=== PATIENT | male | born 1960 | race Caucasian/White ===

== ENCOUNTER 2019-02-13 06:09 | Emergency (ER) | payer BC, SELFPAY ==
[2019-02-13] VITALS (16 sets, daily range): BP systolic 168–192; BP diastolic 105–121; PULSE 71–84; RESP 15–20; TEMP 37.2; O2SAT 92–97; BMI 39.3
--- NOTE | 2019-02-13 06:39 | USR_ITS ---
PROCEDURE INFORMATION: Exam: US Abdomen Complete Exam date and time: 02/13/2019 8:08 AM Age: 58 years old Clinical indication: Abdominal pain; Generalized; Additional info: Epigastric pain TECHNIQUE: Imaging protocol: Real-time ultrasound of the abdomen with image documentation. COMPARISON: No relevant prior studies available. FINDINGS: Liver: echogenic liver likely related to fatty infiltration. Liver 17 cm Gallbladder: gallbladder normal. No pericholecystic fluid or gallbladder wall thickening. The gallbladder is unremarkable. No gallstones. No pericholecystic fluid or gallbladder wall thickening. Common bile duct: Common bile duct normal. Common bile duct 5-6 mm. Pancreas: Visualized portions of the pancreas normal. Right kidney: Right kidney is normal. 7 mm calcification mid pole right kidney. Right kidney 12.1 cm. Left kidney: Left kidney 12.3 cm Spleen: Spleen 9 cm Aorta: Visualized portions of the aorta non-aneurysmal and visualized portions of the inferior vena cava is unremarkable. Inferior vena cava: Normal. US/US abdomen complete* [id number] IMPRESSION: Echogenic liver likely related to fatty infiltration.
--- NOTE | 2019-02-13 06:54 | PC.NURSE ---
Placed patient on the pairer substandard, pulse ox and blood pressure
[2019-02-13 07:01] LABS: Glucose Point of Care 132 mg/dL (70-110)
[2019-02-13 07:12] LABS: Basophils # 0.1 10^3/uL (0.0-0.1); Basophils % 0.4 %; Eosinophils # 0.2 10^3/uL (0.0-0.8); Eosinophils % 1.9 %; Hematocrit 44.6 % (42.0-52.0); Hemoglobin 15.1 g/dL (11.7-16.6); Lymphocytes # 1.4 10^3/uL (0.8-4.8); Lymphocytes % 10.6 %; Mean Corpuscular HGB Conc 33.9 g/dL (30.0-36.0); Mean Corpuscular Hemoglobin 31.1 pg (28.0-34.0); Mean Platelet Volume 8.7 fL (7.4-10.4); Monocytes % 7.9 %; Nucleated Red Blood Cells % 0 %; Platelet Count 282 10^3/cmm (130-400); Red Blood Count 4.85 10^6/uL (4.1-5.3); Red Cell Distribution Width 12.9 % (12.1-15.1); White Blood Count 12.7 10^3/uL (4.0-10.0)
[2019-02-13] MEDS: morphine 4 mg/mL SDV 1 mL IVP ×2 (07:13→07:57)
[2019-02-13] MEDS: ondansetron 2 mg/ML SDV 2 mL 4 MG IVP (07:14)
[2019-02-13] MEDS: sodium chloride 0.9% 500 ML IV (07:14)
[2019-02-13 07:29] LABS: Alanine Aminotransferase 18 U/L (0-41); Albumin Level 5.3 g/dL (3.5-5.2); Alkaline Phosphatase 79 IU/L (40-130); Aspartate Amino Transferase 15 U/L (0-40); Blood Urea Nitrogen 11 mg/dL (6-20); Carbon Dioxide 23 mmol/L (22-29); Chloride 100 mmol/L (98-107); Globulin 2.1 g/dL (1.3-4.6); Glomerular Filtration Rate 115.4 mL/min (90-130); Glucose 139 mg/dL (74-109); Lipase 26 U/L (13-60); Sodium 137 mmol/L (136-145); Total Bilirubin 0.6 mg/dL (0.15-1.2); Total Protein 7.4 g/dL (6.6-8.7)
[2019-02-13 07:31] LABS: Troponin(5th) Baseline 9 ng/mL (0-15)
--- NOTE | 2019-02-13 07:41 | ED_ITS ---
HPI - Abdominal Pain General: Chief Complaint: Abdominal Pain Stated Complaint: back pain and abd pain Time Seen by Provider: 02/13/19 06:33 Source: patient and family History of Present Illness: HPI narrative: Mr. Capone is a very nice 58-year-old male who comes in complaining of epigastric pain. The epigastric pain has been intermittent but he has had constant back pain. He describes the pain is burning in nature. He denies any nausea/vomiting, fever/chills or diarrhea or constipation. He denies any blood in his stools or black tarry stools. He denies having anything similar in the past. He is not had any known ill conta cts. Patient is unaware of anything that makes his symptoms better or worse. Associated Symptoms: Denies chills, coffee ground emesis, constipation, GI cramping, diarrhea, dysuria, fever(s), hematochezia, hematuria, hematemesis, melena, nausea, syncope and vomiting Review of Systems General: Reports: other (negative unless marked) Const: Denies: fever, chills, body aches, fatigue, malaise or diaphoresis Eyes: Denies: change in vision or blurry vision ENMT: Denies: throat pain, painful swallowing, hoarseness, ear pain, ear discharge, Change in hearing or nasal discharge Card: Denies: chest pain, palpitations, irregular heart rhythm, syncope, pre- syncope, shortness of breath on exertion or shortness of breath when lying down Resp: Denies: shortness of breath, productive cough, non-productive cough, wheezing, coughing up blood or chest congestion GI: Reports: abdominal pain; Denies: nausea, vomiting, vomiting blood, coffee grounds in vomit, diarrhea, constipation, cramping, blood in stool or black tarry stool : Denies: flank pain, difficulty urinating, painful urination, urinary frequency, urinary urgency, decreased urine ouput, urinary incontinence or blood in urine Musc: Denies: neck pain, back pain, extremity pain, extremity swelling, joint pain, joint swelling, joint warmth or joint stiffness Skin/Breast: Denies: rash, skin tenderness or yellow skin Neuro: Denies: headache, numbness in extremities, weakness in extremities, changes in sensation, lack of coordination, difficulty walking, dizziness, vertigo or confusion Endo: Denies: excessive thirst, tired all the time, cold intolerance, excessive sweating, flushing or hot flashes Jamie/Lymph: Denies: easy bruising, easy bleeding, petechiae or enlarged lymph nodes All/Imm: Denies: hives, throat swelling, tongue swelling, facial swelling or acute wheezing PFSH ED PFSH: Statuses (acute, chronic, etc) shown below reflect problem list status as previously entered and may not be historically accurate Medical History (Updated 02/13/19 @ 11:07 by Yue Munoz) Diverticulosis (Acute) GERD (gastroesophageal reflux disease) (Acute) Hypertension (Acute) Osteoarthritis (Acute) Surgical History History of colon surgery (Acute) Family History (Updated 02/13/19 @ 07:45 by Yue Munoz) Other CAD (coronary artery disease) Crohn's disease Hypertension Social History Smoking and tobacco status: never smoked Physical Exam Const: COMMON NORMALS: no apparent distress, oriented x3, no limitations, healthy appearing and well nourished EXAM LIMITATIONS: no altered mental status GENERAL APPEARANCE: cooperative, well kempt and well developed ORIENTATION/CONSCIOUSNESS: Yes awake HENMT: COMMON NORMALS: normocephalic, head/scalp atraumatic, hearing grossly normal bilaterally, external ears normal, EAC's normal, external nose normal and moist oral mucous membranes HEAD & SCALP: normal to inspection, normocephalic and atraumatic FACE & SINUS: normal facial exam and face symmetric NOSE: external nose normal and nares normal EXTERNAL EAR: Yes external ears normal EXTERNAL AUDITORY CANAL: EAC's normal MOUTH: oral and palatal mucosa normal and tongue normal Eye: COMMON NORMALS: PERRL, EOMs intact bilaterally, conjunctivae normal and no scleral icterus GENERAL EYE: normal appearance of both eyes and normal light reflex CONJUNCTIVA: Yes conjunctivae normal SCLERA: sclerae normal CORNEA: Yes corneas normal PUPIL: Yes PERRL DIRECT OPHTHALMOSCOPY: Yes normal light reflex Neck/C-Spine: COMMON NORMALS: full ROM, no lymphadenopathy, supple, no meningeal signs and no JVD GENERAL: Yes normal visual inspection and Yes trachea midline CERVICAL SPINE: Yes cervical ROM normal Chest: COMMONS NORMALS: inspection of chest normal and palpation of chest normal Resp: COMMON NORMALS: normal respiratory effort, no retractions, no use of accessory muscles and clear to auscultation bilaterally EFFORT & INSPECTION: Yes able to speak in complete sentences AUSCULTATION: clear to auscultation bilaterally Cardio: COMMON NORMALS: no JVD, regular rate, regular rhythm, S1 normal heart sound, S2 normal heart sound, no gallops, no clicks, no murmurs and no rub JUGULAR VENOUS DISTENTION: no JVD RATE: regular rate RHYTHM: regular rhythm HEART SOUNDS: S1 normal and S2 normal GI: COMMON NORMALS: soft to palpation, non-tender, no hepatosplenomegaly and no masses INSPECTION: Yes normal to inspection PALPATION: Yes soft, No tender and Yes no hepatosplenomegaly : COMMON NORMALS: Yes no CVA tenderness BLADDER/KIDNEY EXAM: Yes no CVA tenderness Back/Pelvis: COMMON NORMALS: no CVA tenderness, thoracic and lumbar spine normal to inspection, no thoracic nor lumbar tenderness and thoraco-lumbar ROM normal Extremity: COMMON NORMALS: normal to inspection, full ROM, normal capillary refill, no joint enlargement, no clubbing, cyanosis or edema and no calf tenderness Neuro: COMMON NORMALS: oriented x3, CN's II-XII intact bilaterally, moves all extremities, no focal motor deficits and no sensory deficits noted MENINGEAL SIGNS: Yes no meningeal signs Psych: COMMON NORMALS: mental status grossly normal, thought process normal, cooperative, affect normal, speech normal and activity/motor behavior normal APPEARANCE: Yes well kempt SPEECH: Yes normal speech THOUGHT PROCESS: normal thought process Skin: COMMON NORMALS: no rashes or lesions noted, skin turgor normal, no jaundice, no petechiae and no mottling GENERAL SKIN EXAM: no rashes or lesions noted and turgor normal Course Vital Signs: Vital signs: Vital Signs Temperature 99.0 F 02/13/19 06:12 Pulse Rate 75 02/13/19 10:30 Respiratory Rate 16 02/13/19 10:30 Blood Pressure 170/109 02/13/19 10:30 Pulse Oximetry 96 02/13/19 10:30 MDM - Abdominal Pain MDM Narrative: Medical decision making narrative: The patient is feeling better but his blood pressure is still elevated. He denies any chest pain or shortness of breath. His lipase is normal but he has findings concerning for early pancreatitis. Ending around his duodenum which I believe is likely caused by him taking NSAIDs including meloxicam for his pain. I have recommended the patient come into the hospital on IV Protonix and possibly have an EGD but he refuses. He states he has to go take care of something with his truck. He is feeling better and wants to go home. I have advised him to follow a clear liquid diet, take the pain medicine and nausea medicine as I have prescribed and avoid all NSAIDs and aspirin. By the sounds of the conversation between he and his she is going to have him come back here immediately he wants his truck is unloaded but I still advised him to follow-up with his primary care doctor and Dr. Javier as an outpatient if he chooses not to do this. The patient does understand he is leaving AGAINST MEDICAL ADVICE and understands the risks by doing so. Lab Data: Labs: Lab Results 02/13/19 02/13/19 02/13/19 Range/Units 06:56 06:56 06:56 WBC 12.7 H (4.0-10.0) 10^3/ uL RBC 4.85 (4.1-5.3) 10^6/u L Hgb 15.1 (11.7-16.6) g/dL Hct 44.6 (42.0-52.0) % MCV 92.0 (80-94) fL MCH 31.1 (28.0-34.0) pg MCHC 33.9 (30.0-36.0) g/dL RDW 12.9 (12.1-15.1) % Plt Count 282 (130-400) 10^3/c mm MPV 8.7 (7.4-10.4) fL Neut % (Auto) 79.0 % Lymph % (Auto) 10.6 % [place] % (Auto) 7.9 % Eos % (Auto) 1.9 % Baso % (Auto) 0.4 % Neut # (Auto) 10.0 H (1.8-7.7) 10^3/u L Lymph # (Auto) 1.4 (0.8-4.8) 10^3/u L [place] # (Auto) 1.0 H (0.2-0.9) 10^3/u L Eos # (Auto) 0.2 (0.0-0.8) 10^3/u L Baso # (Auto) 0.1 (0.0-0.1) 10^3/u L Nucleated RBC % (a uto) 0 % Nucleated RBCs # 0.0 /100WBC Sodium 137 (136-145) mmol/L Potassium 4.0 (3.5-5.1) mmol/L Chloride 100 (98-107) mmol/L Carbon Dioxide 23 (22-29) mmol/L Anion Gap 18.0 (5-19) BUN 11 (6-20) mg/dL Creatinine 0.7 (0.7-1.2) mg/dL GFR Calculation 115.4 (90-130) mL/min Glucose 139 H (74-109) mg/dL POC Glucose (70-110) mg/dL Calcium 10.0 (8.6-10.0) mg/Dl Magnesium 2.0 (1.7-2.3) mg/dL Total Bilirubin 0.6 (0.15-1.2) mg/dL AST 15 (0-40) U/L ALT 18 (0-41) U/L Alkaline Phosphata se 79 (40-130) IU/L Troponin T Baselin e 9 (0-15) ng/mL Troponin T 120 Min swapnil (0-15) ng/mL Delta Troponin T (0-10) ABS# Total Protein 7.4 (6.6-8.7) g/dL Albumin 5.3 H (3.5-5.2) g/dL Globulin 2.1 (1.3-4.6) g/dL Lipase 26 (13-60) U/L Urine Color (Yellow) Urine Appearance (CLEAR) Urine pH (5-7) Ur Specific Gravit y (1.005-1.030) Urine Protein (Negative) Urine Glucose (UA) (Normal) Urine Ketones (Negative) Urine Occult Blood (Negative) Urine Nitrate (Negative) Urine Bilirubin (NEGATIVE) Urine Urobilinogen (Negative) mg/dL Ur Leukocyte Ava ase (Negative) Urine RBC (0-2) /hpf Urine WBC (0-5) /hpf Ur Squamous Epith Cells (0-5) Urine Bacteria (NONE) Hyaline Casts Urine Mucus 02/13/19 02/13/19 02/13/19 Range/Units 06:57 07:36 09:00 WBC (4.0-10.0) 10^3/ uL RBC (4.1-5.3) 10^6/u L Hgb (11.7-16.6) g/dL Hct (42.0-52.0) % MCV (80-94) fL MCH (28.0-34.0) pg MCHC (30.0-36.0) g/dL RDW (12.1-15.1) % Plt Count (130-400) 10^3/c mm MPV (7.4-10.4) fL Neut % (Auto) % Lymph % (Auto) % [place] % (Auto) % Eos % (Auto) % Baso % (Auto) % Neut # (Auto) (1.8-7.7) 10^3/u L Lymph # (Auto) (0.8-4.8) 10^3/u L [place] # (Auto) (0.2-0.9) 10^3/u L Eos # (Auto) (0.0-0.8) 10^3/u L Baso # (Auto) (0.0-0.1) 10^3/u L Nucleated RBC % (a uto) % Nucleated RBCs # /100WBC Sodium (136-145) mmol/L Potassium (3.5-5.1) mmol/L Chloride (98-107) mmol/L Carbon Dioxide (22-29) mmol/L Anion Gap (5-19) BUN (6-20) mg/dL Creatinine (0.7-1.2) mg/dL GFR Calculation (90-130) mL/min Glucose (74-109) mg/dL POC Glucose 132 (70-110) mg/dL Calcium (8.6-10.0) mg/Dl Magnesium (1.7-2.3) mg/dL Total Bilirubin (0.15-1.2) mg/dL AST (0-40) U/L ALT (0-41) U/L Alkaline Phosphata se (40-130) IU/L Troponin T Baselin e (0-15) ng/mL Troponin T 120 Min swapnil 8.36 (0-15) ng/mL Delta Troponin T -0.64 L (0-10) ABS# Total Protein (6.6-8.7) g/dL Albumin (3.5-5.2) g/dL Globulin (1.3-4.6) g/dL Lipase (13-60) U/L Urine Color Yellow (Yellow) Urine Appearance Clear (CLEAR) Urine pH 7 (5-7) Ur Specific Gravit y 1.005 (1.005-1.030) Urine Protein Neg (Negative) Urine Glucose (UA) Norm (Normal) Urine Ketones 1+ H (Negative) Urine Occult Blood Neg (Negative) Urine Nitrate Negative (Negative) Urine Bilirubin Neg (NEGATIVE) Urine Urobilinogen Norm (Negative) mg/dL Ur Leukocyte Ava ase Negative (Negative) Urine RBC 0-4 H (0-2) /hpf Urine WBC 0-4 H (0-5) /hpf Ur Squamous Epith Cells 0-4 H (0-5) Urine Bacteria 1+ H (NONE) Hyaline Casts Rare Urine Mucus Trace Imaging Data ^: US: Radiologist's impression: [address] [address] Ultrasound Report Signed Patient: Maurilio Capone JMR#: [id number] : 1960Acct:[id number] Age/Sex: 58 / MADM Date: 02/13/19 Loc: ER Attending Dr: Ordering Physician: Yue Munoz DO Date of Service: 02/13/19 Procedure(s): US abdomen complete* [id number] Accession Number(s): [id number] cc: Yue Munoz DO~ PROCEDURE INFORMATION: Exam: US Abdomen Complete Exam date and time: 02/13/2019 8:08 AM Age: 58 years old Clinical indication: Abdominal pain; Generalized; Additional info: Epigastric pain TECHNIQUE: Imaging protocol: Real-time ultrasound of the abdomen with image documentation. COMPARISON: No relevant prior studies available. FINDINGS: Liver: echogenic liver likely related to fatty infiltration. Liver 17 cm Gallbladder: gallbladder normal. No pericholecystic fluid or gallbladder wall thickening. The gallbladder is unremarkable. No gallstones. No pericholecystic fluid or gallbladder wall thickening. Common bile duct: Common bile duct normal. Common bile duct 5-6 mm. Pancreas: Visualized portions of the pancreas normal. Right kidney: Right kidney is normal. 7 mm calcification mid pole right kidney. Right kidney 12.1 cm. Left kidney: Left kidney 12.3 cm Spleen: Spleen 9 cm Aorta: Visualized portions of the aorta non-aneurysmal and visualized portions of the inferior vena cava is unremarkable. Inferior vena cava: Normal. US/US abdomen complete* [id number] IMPRESSION: Echogenic liver likely related to fatty infiltration. Dictated By: Yordy Hunt MD 02/13/19923 Signed By: Yordy Hunt MD 02/13/19924 CT Abd/Pel: Radiologist's impression: [address] [place] [address] CT Scan Report Signed Patient: Maurilio Capone MR#: [id number] : 1960 Acct:[id number] Age/Sex: 58 / M ADM Date: 02/13/19 Loc: ER Attending Dr: Ordering Physician: Yue Munoz DO Date of Service: 02/13/19 Procedure(s): CT abdomen pelvis w con* [id number] Accession Number(s): [id number] cc: Yue Munoz DO PROCEDURE INFORMATION: Exam: CT Abdomen And Pelvis With Contrast Exam date and time: 02/13/2019 9:02 AM Age: 58 years old Clinical indication: Abdominal pain; Epigastric; Prior surgery; Surgery date: 6+ months; Surgery type: Hernia TECHNIQUE: Imaging protocol: Computed tomography of the abdomen and pelvis with intravenous contrast. Total DLP: 2097.09 mGy-cm Radiation optimization: All CT scans at this facility use at least one of these dose optimization techniques: automated exposure control; mA and/or kV adjustment per patient size (includes targeted exams where dose is matched to clinical indication); or iterative reconstruction. Contrast material: OMNI 300; Contrast volume: 95 ml; Contrast route: RT HAND; COMPARISON: US abdomen complete* [id number] 02/13/2019 7:31 AM FINDINGS: Lungs: The visualized lung bases are grossly clear. Liver: There is decreased attenuation of the liver with respect of the spleen which may reflect contrast timing versus hepatic steatosis. Gallbladder and bile ducts: No calcified stones. No ductal dilation. Pancreas: There is mild peripancreatic inflammatory stranding near the pancreatic head. Multiple nonobstructing calcifications are noted within both kidneys, the largest on the right measuring up to 4 mm. There is no evidence of hydronephrosis. Subcentimeter hypodensities within both kidneys are too small to adequately characterize and statistically likely reflects cysts. Spleen: No splenomegaly. Adrenals: No mass. Kidneys and ureters: There is mild bilateral perinephric stranding which may be physiologic. Stomach and bowel: There is mild proximal Yoana duodenal stranding. Scattered colonic diverticulosis. No evidence of diverticulitis. No evidence of bowel obstruction. Metallic clips are noted within the left hemiabdomen and near the cecum. Appendix: The appendix is not definitively visualized. There are no findings to suggest acute appendicitis. Intraperitoneal space: No free air. No significant fluid collection. Vasculature: No abdominal aortic aneurysm. Lymph nodes: No enlarged lymph nodes. Bladder: Unremarkable as visualized. Reproductive: Unremarkable as visualized. Bones/joints: There are mild multilevel degenerative changes of the spine. There are no acute osseous findings. Soft tissues: Unremarkable. CT/CT abdomen pelvis w con* [id number] IMPRESSION: 1. Mild peripancreatic stranding at the level of the pancreatic head concerning for early pancreatitis. 2. There is mild periduodenal stranding, which may be secondary to adjacent peripancreatic inflammatory change. A component of duodenitis is possible. 3. Diverticulosis without evidence of diverticulitis. 4. Bilateral nonobstructing renal calcifications. There is mild bilateral perinephric stranding which may be physiologic. Correlate to exclude pyelonephritis. 5. Additional nonacute findings as detailed above. Radiation Dose CTDIVOL = (mGy): DLP = 2097.09 (mGy-cm) Dictated By: Benjamin Perez MD 02/13/19 1034 Signed By: Benjamin Perez MD 02/13/19 1035 EKG Data ^: EKG 1: Attestation: I personally reviewed and interpreted this EKG as follows: (EKG performed interpreted at 0652 -normal sinus rhythm at 75 beats a minute, normal axis, normal VA interval, normal QRS, nonspecific ST-T wave changes, LVH) EKG 2: Attestation: I personally reviewed and interpreted this EKG as follows: (EKG performed/read at 0857 -normal sinus rhythm at 72 beats a minute, no acute ST or T wave changes, normal intervals, LVH present, unchanged from previous) Discharge Plan Discharge Patient Disposition: Left Against Medical Advice Clinical Impression: GERD (gastroesophageal reflux disease), Pancreatitis Condition: Stable Prescriptions: No Action meloxicam 7.5 mg Tablet 7.5 mg PO BID RF: 0 amlodipine 10 mg Tablet 10 mg PO DAILY RF: 0 omeprazole 20 mg Tablet,Delayed Release (Dr/Ec) 20 mg PO BID RF: 0 Referrals: Dale Nunez FNP [Primary Care Provider] - Coding Level of Care Code ED Marine Engineer Cpvec for Chg Fwd Exam Problem Focused
--- NOTE | 2019-02-13 07:41 | PC.NURSE ---
US at bedside
[2019-02-13 08:23] LABS: Bilirubin Urine Neg (NEGATIVE); Blood Urine Neg (Negative); Glucose Urine UA Norm (Normal); Ketones Urine 1+ (Negative); Leukocyte Esterase Urine Negative (Negative); Nitrate Urine Negative (Negative); Protein Urine Neg (Negative); Specific Gravity, Urine 1.005 (1.005-1.030); Urine Appearance Clear (CLEAR); Urine Color Yellow (Yellow); Urobilinogen Urine Norm (Negative); pH Urine 7 (5-7)
[2019-02-13 08:25] LABS: Hyaline Casts Urine RARE; Mucus Urine TRACE
[2019-02-13 08:26] LABS: Add Urine Culture? No; Bacteria Urine 1+; RBC Urine 0-4 /hpf (0-2); Squamous Epithelial Cell Urine 0-4 (0-5); WBC Urine 0-4 /hpf (0-5)
--- NOTE | 2019-02-13 08:40 | ECG_ITS ---
Measurements Intervals [place] Rate: 72 P: 9 IL: 152 QRS: 4 QRSD: 102 T: 9 QT: 408 QTc: 448 SINUS RHYTHM MODERATE VOLTAGE CRITERIA FOR LVH, CONSIDER NORMAL VARIANT No previous ECG available for comparison Electronically Signed On 02-13-2019 14:59:24 HOURLY SHIFT MANAGER by Alicia Soto M.D. [email or web address]
--- NOTE | 2019-02-13 08:48 | CTR_ITS ---
PROCEDURE INFORMATION: Exam: CT Abdomen And Pelvis With Contrast Exam date and time: 02/13/2019 9:02 AM Age: 58 years old Clinical indication: Abdominal pain; Epigastric; Prior surgery; Surgery date: 6+ months; Surgery type: Hernia TECHNIQUE: Imaging protocol: Computed tomography of the abdomen and pelvis with intravenous contrast. Total DLP: 2097.09 mGy-cm Radiation optimization: All CT scans at this facility use at least one of these dose optimization techniques: automated exposure control; mA and/or kV adjustment per patient size (includes targeted exams where dose is matched to clinical indication); or iterative reconstruction. Contrast material: OMNI 300; Contrast volume: 95 ml; Contrast route: RT HAND; COMPARISON: US abdomen complete* [id number] 02/13/2019 7:31 AM FINDINGS: Lungs: The visualized lung bases are grossly clear. Liver: There is decreased attenuation of the liver with respect of the spleen which may reflect contrast timing versus hepatic steatosis. Gallbladder and bile ducts: No calcified stones. No ductal dilation. Pancreas: There is mild peripancreatic inflammatory stranding near the pancreatic head. Multiple nonobstructing calcifications are noted within both kidneys, the largest on the right measuring up to 4 mm. There is no evidence of hydronephrosis. Subcentimeter hypodensities within both kidneys are too small to adequately characterize and statistically likely reflects cysts. Spleen: No splenomegaly. Adrenals: No mass. Kidneys and ureters: There is mild bilateral perinephric stranding which may be physiologic. Stomach and bowel: There is mild proximal [place] duodenal stranding. Scattered colonic diverticulosis. No evidence of diverticulitis. No evidence of bowel obstruction. Metallic clips are noted within the left hemiabdomen and near the cecum. Appendix: The appendix is not definitively visualized. There are no findings to suggest acute appendicitis. Intraperitoneal space: No free air. No significant fluid collection. Vasculature: No abdominal aortic aneurysm. Lymph nodes: No enlarged lymph nodes. Bladder: Unremarkable as visualized. Reproductive: Unremarkable as visualized. Bones/joints: There are mild multilevel degenerative changes of the spine. There are no acute osseous findings. Soft tissues: Unremarkable. CT/CT abdomen pelvis w con* [id number] IMPRESSION: 1. Mild peripancreatic stranding at the level of the pancreatic head concerning for early pancreatitis. 2. There is mild periduodenal stranding, which may be secondary to adjacent peripancreatic inflammatory change. A component of duodenitis is possible. 3. Diverticulosis without evidence of diverticulitis. 4. Bilateral nonobstructing renal calcifications. There is mild bilateral perinephric stranding which may be physiologic. Correlate to exclude pyelonephritis. 5. Additional nonacute findings as detailed above. Radiation Dose CTDIVOL = (mGy): DLP = 2097.09 (mGy-cm)
[2019-02-13] MEDS: HYDROmorphone 1 mg/mL INJ 1 mL IVP (09:07)
--- NOTE | 2019-02-13 09:20 | PC.NURSE ---
Pt in CT
[2019-02-13 09:27] LABS: Troponin 5 2HR 8.36 ng/mL (0-15)
[2019-02-13 09:33] LABS: Troponin 5 2HR Delta -0.64 ABS# (0-10)
--- NOTE | 2019-02-13 09:33 | PC.NURSE ---
Returned to room from CT
[2019-02-13] MEDS: pantoprazole 40 mg SDV 80 MG IVP (11:13)
--- NOTE | 2019-02-13 12:40 | ECG_ITS ---
Measurements Intervals [place] Rate: 75 P: 16 DE: 165 QRS: 4 QRSD: 106 T: 2 QT: 409 QTc: 459 SINUS RHYTHM MODERATE VOLTAGE CRITERIA FOR LVH, CONSIDER NORMAL VARIANT [MEETS CRITERIA IN ONE OF: R(aVL), S(V1), R(V5), R(V5/V6)+S(V1)] No previous ECG available for comparison Electronically Signed On 02-13-2019 15:01:37 REGULATORY AFFAIRS ANALYST by Alicia Soto M.D. [email or web address]
== END 2019-02-13 11:43 | disposition left against medical advice (07) ==
PROVIDERS: Emergency Provider Emergency Medicine; Family Provider Nurse Practitioner Family; PCP Nurse Practitioner Family
DX: K21.9 Gastro-esophageal reflux disease without esophagitis (principal); K85.90 Acute pancreatitis without necrosis or infection, unspecified; Z53.21 Procedure and treatment not carried out due to patient leaving prior to being seen by health care provider; I10 Essential (primary) hypertension; M19.90 Unspecified osteoarthritis, unspecified site
CPT/HCPCS: 36415; 36416; 74177; 76700; 80053; 81001; 82962; 83690; 83735; 84484; 85025; 93005; 96360; 96361; 96374; 99283; C9113; J1170; J2270; J2405; J7040; Q9967

== ENCOUNTER 2019-02-13 17:55 | Observation (INO) | payer BC, SELFPAY ==
[2019-02-13] VITALS (10 sets, daily range): BP systolic 157–181; BP diastolic 87–108; PULSE 76–88; RESP 13–20; TEMP 37.3; O2SAT 91–96; BMI 40.8
--- NOTE | 2019-02-13 18:19 | ED_ITS ---
Entered by Linda Slade, acting as scribe for Feb 13, 2019 17:55 HPI - Abdominal Pain General: Chief Complaint: Abdominal Pain Stated Complaint: abd pain Time Seen by Provider: 02/13/19 18:40 Source: patient and family Mode of arrival: ambulatory History of Present Illness: HPI narrative: 58 yo male presents with abdomen pain. pt states this started a few days ago. pt states movement and water makes this worsened. pt has had nausea and vomiting. pt was prescribed Hydrocodone today in ED but it is not helping the pain so he came back to be seen in the ED. pt denies any other symptoms at this time. MD elicited complaint: abdominal pain Onset (ago): day(s) (few days ago) Pain Consistency: constant Location: Epigastric and Periumbilical Quality: cramping and aching Radiation: epigastric Exacerbating factors: movement Relieving factors: nothing Associated Symptoms: Reports nausea and vomiting; Denies chills, dysuria, fever(s) and hematuria Treatments prior to arrival: other (Hydrocodone that he recieved in the ED earlier today.) Review of Systems Const: Denies: fever or chills Eyes: Denies: change in vision or blurry vision ENMT: Denies: painful swallowing, swelling of lips/tongue, bleeding gums, dental pain, Change in hearing, nose bleeds, post nasal drip or facial/sinus pain Card: Denies: chest pain, palpitations, irregular heart rhythm, edema, swelling of feet/ankles, shortness of breath on exertion or shortness of breath when lying down Resp: Denies: shortness of breath, productive cough, non-productive cough or wheezing GI: Reports: nausea and vomiting : Denies: difficulty urinating, painful urination, urinary frequency, urinary urgency or blood in urine Musc: Denies: joint warmth Skin/Breast: Denies: rash, itching or redness Neuro: Denies: headache, dizziness, vertigo, confusion or seizure-like activity Psych: Denies: anxiety, visual hallucinations or auditory hallucinations All/Imm: Denies: acute wheezing PFSH ED PFSH: Statuses (acute, chronic, etc) shown below reflect problem list status as previously entered and may not be historically accurate Medical History (Updated 02/13/19 @ 11:07 by Yue Munoz) Diverticulosis (Acute) GERD (gastroesophageal reflux disease) (Acute) Hypertension (Acute) Osteoarthritis (Acute) Family History (Updated 02/13/19 @ 07:45 by Yue Munoz) Other CAD (coronary artery disease) Crohn's disease Hypertension Social History Smoking and tobacco status: former smoker Physical Exam Const: COMMON NORMALS: alert GENERAL APPEARANCE: well developed ORIENTATION/CONSCIOUSNESS: Yes awake, Yes oriented to person, Yes oriented to place and Yes oriented to time HENMT: COMMON NORMALS: normocephalic, external ears normal, external nose normal and moist oral mucous membranes HEAD & SCALP: normocephalic; no scalp tenderness FACE & SINUS: normal facial exam NOSE: external nose normal and no nasal discharge EXTERNAL EAR: Yes external ears normal MOUTH: tongue normal TEETH & GINGIVA: no abnormal tooth and associated gingiva THROAT: posterior oropharynx normal; no peritonsillar mass Eye: COMMON NORMALS: PERRL, EOMs intact bilaterally and conjunctivae normal EYELID: eyelids normal CONJUNCTIVA: Yes conjunctivae normal PUPIL: Yes PERRL Neck/C-Spine: COMMON NORMALS: full ROM GENERAL: Yes anterior neck swelling and No tracheal deviation CERVICAL SPINE: Yes normal cervical lordosis, No cervical spine tenderness, No step off deformity, No paracervical muscle tenderness and No paracervical muscle spasm Chest: COMMONS NORMALS: inspection of chest normal CHEST: Yes symmetrical chest wall rise and No tenderness Resp: COMMON NORMALS: clear to auscultation bilaterally EFFORT & INSPECTION: No tachypneic, No respiratory distress, No retractions, No uses acce ssory muscles and No tracheal deviation AUSCULTATION: clear to auscultation bilaterally, no rhonchi, no wheezes and lung sounds not diminished Cardio: COMMON NORMALS: regular rate and regular rhythm RATE: regular rate RHYTHM: regular rhythm HEART SOUNDS: no murmurs PERIPHERAL PULSES: radial pulses present GI: PALPATION: Yes tender : COMMON NORMALS: Yes no CVA tenderness BLADDER/KIDNEY EXAM: Yes no CVA tenderness Back/Pelvis: COMMON NORMALS: no CVA tenderness PELVIS: Yes no pain with anterior-posterior compression and Yes no pain with lateral compression Neuro: SENSORIUM/ORIENTATION: Yes alert, Yes oriented to person, Yes oriented to place and Yes oriented to time Psych: COMMON NORMALS: mental status grossly normal and speech normal SPEECH: Yes normal speech Skin: COMMON NORMALS: no rashes or lesions noted GENERAL SKIN EXAM: no rashes or lesions noted Procedures Intubation Mg Given: 20 Mg Given: 200 Course Consultations: Consultation #1: Dustin Time: 19:50 Vital Signs: Vital signs: Vital Signs Temperature 99.1 F 02/13/19 18:00 Pulse Rate 86 02/13/19 20:00 Respiratory Rate 16 02/13/19 20:25 Blood Pressure 173/103 02/13/19 20:00 Pulse Oximetry 94 02/13/19 20:00 MDM - Abdominal Pain MDM Narrative: Medical decision making narrative: 58-year-old male here with epigastric pain for the second time today. The first time, he left AGAINST MEDICAL ADVICE because he thought he would get fired from his job if he stayed. He continued to have significant pain, and was not able to take in liquids, so returned. He has duodenitis by CT scan with no perforation. Spoke with surgery, they state no surgical intervention needed at this time. Spoke with hospitalist. He will be admitted for IV Protonix, a liquid diet, IV fluid resuscitation, and pain control. 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
--- NOTE | 2019-02-13 19:02 | PC.NURSE ---
Report given to JANNETTE Bolden
--- NOTE | 2019-02-13 20:08 | PC.NURSE ---
Provider at bedside.
[2019-02-13] MEDS: HYDROmorphone 1 mg/mL INJ 1 mL IVP (20:25)
[2019-02-13] MEDS: sodium chloride 0.9% 500 ML IV (20:25)
[2019-02-13] MEDS: ondansetron 2 mg/ML SDV 2 mL 4 MG IVP (20:27)
--- NOTE | 2019-02-13 20:59 | P.HP_ITS ---
Providers/Chief Complaint Admitting Physician: Cristiano Chan MD Chief Complaint: abd pain History of Present Illness Maurilio Capone is a 58 year old male with a past medical history of hypertension, chronic back pain, prediabetes who presents to the emergency room due to epigastric pain, nausea, malaise for the since . Patient states that a few days before he was not feeling well. 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 He is , has kids, grandkids. Denies any recent history of food poisoning. Lives in [facility]. Drinks well water. No recent ER visits. No recent hospitalizations. No sick contacts. Patient states that on morning he developed back pain, located in the mid back, he thought nothing of it. But patient states that on night he developed epigastric pain with bloating, belching, acid reflux. No hematemesis. Since then he has had a poor appetite, can only keep down liquids, feels nauseous, one episode of vomiting, one episode of diarrhea. States that epigastric pain, has worsened, over the past few days. Last bowel movement was yesterday. Last meal was yesterday morning, bowl of cereal. He is passing gas from below. Denies alcohol use. Denies a history of cholelithiasis. Denies a history of pancreatitis. Denies drinking alcohol. Denies trauma to the belly. Denies steroid use. Denies a history of hyperlipidemia or elevated trigl ycerides. Patient does state that he has had an EGD roughly 2 years ago, when he swallowed a large piece of meat that got stuck in his throat, he was told at that time he had some ulcers possibly in his stomach. Patient states that he uses meloxicam daily for his joint pain and back pain, for the last 3 years. Denies any other NSAID use. Denies a history of H. pylori. Has never had a colonoscopy. Denies bloody stools. Denies black stools. Denies a family history of colon cancer. Denies of home history of stomach cancers. Denies being on blood thinners, denies being on Eliquis, denies being on Coumadin, denies being on Xarelto. Denies a history of atrial fibrillation. Denies a history of palpitations. States that he takes a baby aspirin intermittently. Review of Systems Const: Denies: fever or chills ENMT: Denies: painful swallowing Card: Denies: chest pain, palpitations or irregular heart rhythm Resp: Denies: shortness of breath or non-productive cough GI: Reports: abdominal pain, nausea, heartburn/indigestion, bloating, belching and excessive passing of gas; Denies: vomiting, vomiting blood, coffee grounds in vomit, difficulty swallowing, feeling full early, diarrhea, constipation, cramping, fecal incontinence, change in bowel habits, painful bowel movements, rectal swelling, change in stool character, blood in stool or black tarry stool : Denies: flank pain, difficulty urinating, painful urination, urinary frequency or urinary urgency Musc: Reports: back pain Skin/Breast: Denies: rash Neuro: Denies: headache Endo: Denies: excessive urination or excessive thirst Jamie/Lymph: Denies: easy bleeding Medications/Allergies Allergies Allergy/AdvReac Type Severity Reaction Status Date / Time No Known Allergies Allergy Verified 02/13/19 06:18 Additional Medication Information Additional Medication Information: Uses Norvasc 10 mg once daily [place] for back pain Meloxicam daily for back pain Omeprazole PFSH Acute PFSH: Statuses (acute, chronic, etc) shown below reflect problem list status as previously entered and may not be historically accurate Medical History (Updated 02/13/19 @ 21:08 by Ajit Samuel MD) Diverticulosis (Acute) GERD (gastroesophageal reflux disease) (Acute) Hypertension (Acute) Osteoarthritis (Acute) Surgical History (Updated 02/13/19 @ 21:09 by Ajit Samuel MD) H/O colectomy (Acute) History of colon surgery (Acute) History of esophagogastroduodenoscopy (EGD) (Acute) S/P tonsillectomy (Acute) Family History (Updated 02/13/19 @ 21:09 by Ajit Samuel MD) Other CAD (coronary artery disease) Crohn's disease Diabetes Hypertension Social History (Updated 02/13/19 @ 21:09 by Ajit Samuel MD) Smoking and tobacco status: former smoker Alcohol intake: never Substance/Drug Use: never Vitals/I&O/Wt Last Vital Signs Temp 99.1 F 01/04/20 18:00 Pulse 86 02/13/19 20:00 Resp 16 02/13/19 20:25 BP 173/103 02/13/19 20:00 Pulse Ox 94 02/13/19 20:00 Weight last 48 hrs Weight 132.903 kg Physical Exam Const: COMMON NORMALS: no apparent distress EXAM LIMITATIONS: altered mental status GENERAL APPEARANCE: cooperative and comfortable Eye: COMMON NORMALS: PERRL and EOMs intact bilaterally Neck/C-Spine: COMMON NORMALS: no lymphadenopathy Lymph: LYMPHATIC: no lymphadenopathy noted Resp: COMMON NORMALS: normal respiratory effort, no retractions, no use of accessory muscles and clear to auscultation bilaterally Cardio: COMMON NORMALS: no JVD, regular rate, regular rhythm, S1 normal heart sound, S2 normal heart sound, no murmurs and no rub GI: COMMON NORMALS: normal to inspection, nondistended, normoactive bowel sounds, soft to palpation, no hepatosplenomegaly, no masses and no bruits INSPECTION: Yes scar (Scar below the umbilicus) AUSCULTATION: Yes hypoactive bowel sounds PALPATION: Yes tender (Epigastric tenderness), No guarding and No rigid : COMMON NORMALS: Yes no CVA tenderness Back/Pelvis: COMMON NORMALS: no CVA tenderness and thoracic and lumbar spine normal to inspection Extremity: COMMON NORMALS: normal capillary refill, no clubbing, cyanosis or edema and no pedal edema Neuro: COMMON NORMALS: oriented x3, CN's II-XII intact bilaterally, moves all extremities and no focal motor deficits Skin: COMMON NORMALS: no rashes or lesions noted Data Imaging^: CT Abd/Pel: Radiologist's impression: 1. Mild peripancreatic stranding at the level of the pancreatic head concerning for early pancreatitis. 2. There is mild periduodenal stranding, which may be secondary to adjacent peripancreatic inflammatory change. A component of duodenitis is possible. 3. Diverticulosis without evidence of diverticulitis. 4. Bilateral nonobstructing renal calcifications. There is mild bilateral perinephric stranding which may be physiologic. Correlate to exclude pyelonephritis. 5. Additional nonacute findings as detailed above. A&P Assessment and plan (1) Epigastric pain: -Patient symptoms sound a lot like peptic ulcer disease and possible H. pylori -He has a chronic history of acid reflux, poorly controlled on pantoprazole -Has used meloxicam daily for the last 3 years, takes aspirin intermittently -Had an EGD a few years ago was told he had some ulcers in his stomach -No significant anemia on blood work -Although CT scan does show some duodenitis and pancreatitis, lipase is normal, no significant transaminitis, will obtain some inflammatory markers, although clinically I feel this is unlikely. Denies alcohol use, denies history of hypertriglyceridemia, denies history of trauma, denies history of steroid use Plan: -Keep n.p.o. -IV fluids -Dr. Javier from surgery has been consulted, will do an EGD tomorrow -We will get inflammatory markers, a.m. blood work -H. pylori stool antigen -Preemptively start him on Protonix twice daily in case of peptic ulcer disease -Pain control with morphine Status: Acute Code(s): R10.13 - Epigastric pain (2) Hypertension: Will controlled hypertension via IV labetalol Status: Acute Code(s): I10 - Essential (primary) hypertension (3) GERD (gastroesophageal reflux disease): Status: Acute Qualifiers: Esophagitis presence: with esophagitis Qualified Code(s): K21.0 - Gastro-esophageal reflux disease with esophagitis Code(s): K21.9 - Gastro-esophageal reflux disease without esophagitis Attestations Medical Necessity Statement*: Patient requires hospitalization, outpatient, less than 2 midnights, for epigastric pain Coding 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
[2019-02-14] VITALS (14 sets, daily range): BP systolic 129–187; BP diastolic 84–101; PULSE 72–84; RESP 14–20; TEMP 36.3–38.1; O2SAT 93–99; BMI 40.8
[2019-02-14] MEDS: dextrose 5%-sod chloride 0.9% 1,000 ML 125 ML IV (00:44)
[2019-02-14] MEDS: pantoprazole 40 mg SDV IVP ×3 (00:44→17:07)
[2019-02-14] MEDS: morphine 4 mg/mL SDV 1 mL 2 MG IV (00:45)
[2019-02-14 00:50] LABS: Glucose Point of Care 119 mg/dL (70-110)
[2019-02-14 00:57] LABS: C Reactive Protein 101.6 mg/L (0.0-4.9)
[2019-02-14 00:59] LABS: Troponin(5th) Baseline 13 ng/mL (0-15)
--- NOTE | 2019-02-14 02:00 | ECG_ITS ---
Measurements Intervals [place] Rate: 77 P: -5 AL: 167 QRS: 0 QRSD: 98 T: -12 QT: 387 QTc: 439 SINUS RHYTHM MINIMAL VOLTAGE CRITERIA FOR LVH, CONSIDER NORMAL VARIANT [MEETS CRITERIA IN ONE OF: R(aVL), S(V1), R(V5), R(V5/V6)+S(V1)] Compared to ECG 02/13/2019 08:57:54 No significant changes Electronically Signed On 02-14-2019 11:21:09 CAGE LOADER by Alicia Soto M.D. [email or web address]
[2019-02-14 02:38] LABS: Troponin 5 2HR 12.79 ng/mL (0-15)
[2019-02-14 02:41] LABS: Troponin 5 2HR Delta -0.21 ABS# (0-10)
[2019-02-14 06:55] LABS: Glucose Point of Care 155 mg/dL (70-110)
[2019-02-14] MEDS: sodium chloride 0.9% 1,000 ML 100 ML IV ×2 (08:09→17:10)
[2019-02-14] MEDS: morphine IR 15 mg Tablet PO (08:13)
--- NOTE | 2019-02-14 09:28 | P.CONIM_ITS ---
Providers/Reason For Consult Consulting Physican/Specialty*: Dr. Samuel Reason for Consult*: Duodenitis Attending Physician: Cristiano Chan MD History of Present Illness History of Present Illness Maurilio Capone is a 58 year old male who presented to the ER last night with epigastric pain which is been ongoing for the last few days. Patient had some nausea but denies any vomiting. Patient denies any hematemesis melena or hematochezia. He denies any fevers chills or jaundice. He is usually able to eat whatever he wants without difficulty. Patient takes meloxicam for chronic pain and had an EGD in the past where he was diagnosed with ulcers. Denies significant acid reflux Review of Systems Const: Denies: fever, chills, change in weight or fatigue Eyes: Denies: change in vision ENMT: Denies: painful swallowing Card: Denies: chest pain Resp: Denies: shortness of breath GI: Denies: abdominal pain or blood in stool : Denies: painful urination Skin/Breast: Denies: rash, nipple discharge or breast mass/lump Neuro: Denies: seizure-like activity Jamie/Lymph: Denies: easy bruising Meds/Allergies Home Medications and Allergies Home Medications Medication Instructions Recorded Confirmed Type amlodipine 10 mg PO DAILY 02/13/19 02/13/19 History meloxicam 7.5 mg PO BID 02/13/19 02/13/19 History omeprazole 20 mg PO BID 02/13/19 02/13/19 History Allergies Allergy/AdvReac Type Severity Reaction Status Date / Time No Known Allergies Allergy Verified 02/13/19 06:18 Current Medications Current Medications Generic Name Dose Route Start Last Admin Trade Name Freq PRN Reason Stop Dose Admin Sodium Chloride 1,000 mls @ 100 mls/hr 02/14/19 08:00 02/14/19 08:09 Sodium Chloride 0.9% IV 100 mls/hr .Q10H MEGHNA Administration Morphine Sulfate 15 mg 02/14/19 07:21 02/14/19 08:13 Msir PO 15 mg Q4H PRN Administration SEVERE PAIN Pantoprazole Sodium 40 mg 02/14/19 09:00 02/14/19 08:15 Protonix IVP 40 mg BID MEGHNA Administration PFSH Acute PFSH: Statuses (acute, chronic, etc) shown below reflect problem list status as previously entered and may not be historically accurate Medical History Diverticulosis (Acute) GERD (gastroesophageal reflux disease) (Acute) Hypertension (Acute) Osteoarthritis (Acute) Surgical History H/O colectomy (Acute) History of colon surgery (Acute) History of esophagogastroduodenoscopy (EGD) (Acute) S/P tonsillectomy (Acute) Family History Other CAD (coronary artery disease) Crohn's disease Diabetes Hypertension Social History Smoking and tobacco status: former smoker Alcohol intake: never Substance/Drug Use: never Vitals/I&O/Wt Last Vital Signs Temp 98.5 F 02/14/19 08:24 Pulse 72 02/14/19 09:10 Resp 20 H 02/14/19 08:24 BP 164/94 02/14/19 08:24 Pulse Ox 94 02/14/19 09:10 02/13/19 02/14/19 02/14/19 22:59 06:59 14:59 Intake Total 612.5 / 612.5 Output Total 725 / 725 Balance 612.5 / 612.5 -725 / -725 Weight last 48 hrs Weight 293 lb Physical Exam Narrative: EXAM NARRATIVE: HEENT: Normocephalic Eye: Sclera /conjunctiva normal Respiratory and chest: Bilateral clear breath sounds on auscultation Cardiovascular: Normal S1 and S2 heart sounds Abdomen: Soft to palpation, mildly tender in the epigastric region Neurological: Oriented to place person and time Skin: Intact, no lesions appreciated on gross exam A&P Assessment and plan (1) Duodenitis: 58-year-old gentleman with epigastric pain radiating to the back with nausea. CT abdomen pelvis revealed duodenitis with associated inflammation around the head of the pancreas. Patient is hemodynamically stable with no evidence of peritonitis Plan for EGD under MAC today Procedure, risks, benefits and alternatives have been discussed with the patient who wishes to proceed with surgery. 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
--- NOTE | 2019-02-14 09:31 | ANES.PREANES ---
Pre-Anesthetic Assessment Pre-Anesthetic Assessment: Height/Weight: Height 1.8 m Weight 132.903 kg Temp Pulse Resp BP Pulse Ox 98.5 F 72 20 H 164/94 94 02/14/19 08:24 02/14/19 09:10 02/14/19 08:24 02/14/19 08:24 02/14/19 09:10 Proposed Procedure: Operation Date: 02/14/19 09:30 Proposed Procedures p EGD(Left) - Sahil Javier MD Social: Social History: Alcohol and Tobacco Exam: Pre-Anes Outpt Exam: alert, oriented x 3, clear to auscultation bilaterally and regular rate & rhythm Airway: Submandibular: WNL Cervical ROM: WNL MP: 2 Dentition: Full History/ROS: No significant history except as noted CV/HEM: CV/HEM: HTN GI: GI: GERD Musc/skel: Musc/skel: OA/DJD Anesthetic Plan: ASA status: II Anesthesia: MAC Risk of > 500 ml blood loss (7ml/kg in children): No Meds/Allergies Current Medications: Current Medications Generic Name Dose Route Start Last Admin Trade Name Freq PRN Reason Stop Dose Admin Sodium Chloride 1,000 mls @ 100 m ls/hr 02/14/19 08:00 02/14/19 08:09 Sodium Chloride 0.9% IV 100 mls/hr .Q10H MEGHNA Administration Morphine Sulfate 15 mg 02/14/19 07:21 02/14/19 08:13 Msir PO 15 mg Q4H PRN Administration SEVERE PAIN Pantoprazole [place] m 40 mg 02/14/19 09:00 02/14/19 08:15 Protonix IVP 40 mg BID MEGHNA Administration Additional Medication Information: Uses Norvasc 10 mg once daily [place] for back pain Meloxicam daily for back pain Omeprazole PFSH Anesthesia PFSH: Medical History Diverticulosis (Acute) GERD (gastroesophageal reflux disease) (Acute) Hypertension (Acute) Osteoarthritis (Acute) Surgical History H/O colectomy (Acute) History of colon surgery (Acute) History of esophagogastroduodenoscopy (EGD) (Acute) S/P tonsillectomy (Acute) Family History Other CAD (coronary artery disease) Crohn's disease Diabetes Hypertension Social History Smoking and tobacco status: former smoker Alcohol intake: never Substance/Drug Use: never Data Anesthesia Labs: Other Labs: Laboratory Results - last 48 hr 02/14/19 02/14/19 02/14/19 00:20 00:20 00:36 POC Glucose 119 Troponin T Baselin e 13 Troponin T 120 Min [place] Troponin T C-Reactive Protein 101.6 H 02/14/19 02/14/19 02:18 06:43 POC Glucose 155 Troponin T Baselin e Troponin T 120 Min [place] 12.79 Delta Troponin T -0.21 L C-Reactive Protein Cardiac Studies: No Data to Display
[2019-02-14] MEDS: sodium chloride 0.9% 1,000 ML 30 ML (09:35)
[2019-02-14 09:57] LABS: Alanine Aminotransferase 14 U/L (0-41); Albumin Level 5.1 g/dL (3.5-5.2); Alkaline Phosphatase 75 IU/L (40-130); Blood Urea Nitrogen 8 mg/dL (6-20); Calcium 10.1 mg/Dl (8.6-10.0); Carbon Dioxide 23 mmol/L (22-29); Chloride 101 mmol/L (98-107); Chol HDL Ratio 3.68 mg/dL (1.0-5.00); Cholesterol 184 mg/dL (0-200); Glomerular Filtration Rate 98.9 mL/min (90-130); Glucose 141 mg/dL (74-109); HDL Cholesterol 50 mg/dL (60-100); LDL Cholesterol Calculated 109 mg/dL (50-129); LDL HDL Ratio 2.18 RATIO (0.00-3.22); Lipase 19 U/L (13-60); Phosphorus 2.8 mg/dL (2.5-4.5); Sodium 138 mmol/L (136-145); Total Bilirubin 1.1 mg/dL (0.15-1.2); Total Protein 7.1 g/dL (6.6-8.7); Triglycerides 126 mg/dL (0-150)
[2019-02-14 10:07] LABS: Thyroid Stimulating Hormone 1.43 uIU/mL (0.27-4.20)
[2019-02-14 10:44] LABS: Aspartate Amino Transferase 14 U/L (0-40)
[2019-02-14 12:21] LABS: Glucose Point of Care 125 mg/dL (70-110)
[2019-02-14] MEDS: morphine 4 mg/mL SDV 1 mL 2 MG IVP ×3 (13:53→22:33)
[2019-02-14 14:41] LABS: Basophils % 0.2 %; Eosinophils # 0.2 10^3/uL (0.0-0.8); Eosinophils % 1.6 %; Hematocrit 43.1 % (42.0-52.0); Hemoglobin 14.5 g/dL (11.7-16.6); Lymphocytes # 1.3 10^3/uL (0.8-4.8); Lymphocytes % 10.7 %; Mean Corpuscular HGB Conc 33.6 g/dL (30.0-36.0); Mean Corpuscular Hemoglobin 32.4 pg (28.0-34.0); Mean Corpuscular Volume 96.4 fL (80-94); Mean Platelet Volume 8.9 fL (7.4-10.4); Monocytes % 8.2 %; Neutrophils # 9.7 10^3/uL (1.8-7.7); Nucleated Red Blood Cells % 0 %; Platelet Count 288 10^3/cmm (130-400); Red Blood Count 4.47 10^6/uL (4.1-5.3); Red Cell Distribution Width 13.1 % (12.1-15.1); White Blood Count 12.3 10^3/uL (4.0-10.0)
--- NOTE | 2019-02-14 14:48 | PM.PN ---
Subjective Subjective: Interval history: Patient had an EGD this morning, showed gastric erosions, after the procedure patient still has some epigastric abdominal pain, poor appetite, some mild nausea, has not had a bowel movement yet Vitals/I&O/Wt Last Vital Signs Temp 97.3 F L 02/14/19 11:37 Pulse 75 02/14/19 11:37 Resp 14 02/14/19 13:53 BP 171/92 02/14/19 11:37 Pulse Ox 94 02/14/19 11:37 02/13/19 02/14/19 02/14/19 22:59 06:59 14:59 Intake Total 612.5 / 612.5 840 / 840 Output Total 1275 / 1275 Balance 612.5 / 612.5 -435 / -435 Weight last 48 hrs Weight 132.903 kg Weight 132.903 kg Physical Exam Neck/C-Spine: COMMON NORMALS: no JVD Lymph: LYMPHATIC: no lymphadenopathy noted Resp: COMMON NORMALS: normal respiratory effort, no retractions, no use of accessory muscles and clear to auscultation bilaterally AUSCULTATION: clear to auscultation bilaterally Cardio: COMMON NORMALS: no JVD, regular rate, regular rhythm, S1 normal heart sound, S2 normal heart sound, no murmurs and no rub RATE: regular rate RHYTHM: regular rhythm HEART SOUNDS: S1 normal and S2 normal GI: COMMON NORMALS: normal to inspection, nondistended, normoactive bowel sounds, soft to palpation, no hepatosplenomegaly, no masses and no bruits INSPECTION: Yes scar (Scar below the umbilicus) AUSCULTATION: Yes hypoactive bowel sounds PALPATION: Yes soft, Yes tender (Epigastric tenderness), No guarding, No rigid and Yes no hepatosplenomegaly Extremity: COMMON NORMALS: normal capillary refill, no clubbing, cyanosis or edema and no pedal edema A&P Assessment and plan (1) Epigastric pain: -Patient symptoms sound a lot like peptic ulcer disease and possible H. pylori -He has a chronic history of acid reflux, poorly controlled on pantoprazole -Has used meloxicam daily for the last 3 years, takes aspirin intermittently -Had an EGD a few years ago was told he had some ulcers in his stomach -No significant anemia on blood work -Although CT scan does show some duodenitis and pancreatitis, lipase is normal, no significant transaminitis, will obtain some inflammatory markers, although clinically I feel this is unlikely. Denies alcohol use, denies history of hypertriglyceridemia, denies history of trauma, denies history of steroid use -EGD shows gastric erosions Plan: -Clear liquid diet -IV fluids -H. pylori stool antigen -Continue Protonix -Pain control with morphine -Continues to have abdominal pain, have epigastric pain after EGD, will continue to monitor Status: Acute Code(s): R10.13 - Epigastric pain (2) Hypertension: Will controlled hypertension via IV labetalol Status: Acute Code(s): I10 - Essential (primary) hypertension (3) GERD (gastroesophageal reflux disease): Status: Acute Qualifiers: Esophagitis presence: with esophagitis Qualified Code(s): K21.0 - Gastro-esophageal reflux disease with esophagitis Code(s): K21.9 - Gastro-esophageal reflux disease without esophagitis Attestations Medical Necessity Statement*: Patient requires hospitalization, for abdominal pain status post EGD Coding Level of Care Code Acute Electorate Officer for Chg Fwd Diagnoses Epigastric pain R10.13 Hypertension I10 GERD (gastroesophageal reflux disease) K21.0 Esophagitis presence: with esophagitis
[2019-02-14 14:50] LABS: INR 1.07 (0.8-1.2)
[2019-02-14 15:02] LABS: Estmated Average Glucose 126
[2019-02-14 16:54] LABS: Glucose Point of Care 103 mg/dL (70-110)
[2019-02-14] MEDS: sucralfate 1 gm Tablet PO (17:05)
[2019-02-14] MEDS: lisinopril 20 mg Tablet PO (17:05)
[2019-02-14] MEDS: amlodipine 10 mg Tablet PO (17:05)
[2019-02-14] MEDS: ondansetron 2 mg/ML SDV 2 mL 4 MG IVP (18:04)
[2019-02-14] MEDS: bismuth subsalicylate 240 mL Btl 15 ML PO (21:20)
[2019-02-14 21:48] LABS: Glucose Point of Care 144 mg/dL (70-110)
[2019-02-15] VITALS (8 sets, daily range): BP systolic 124–144; BP diastolic 71–87; PULSE 67–77; RESP 16–18; TEMP 36.7–37.1; O2SAT 93–97
[2019-02-15] MEDS: bismuth subsalicylate 240 mL Btl 15 ML PO ×2 (01:07→08:57)
[2019-02-15] MEDS: sucralfate 1 gm Tablet PO ×2 (06:05→17:10)
[2019-02-15] MEDS: sodium chloride 0.9% 1,000 ML 100 ML IV (06:05)
[2019-02-15 07:48] LABS: Glucose Point of Care 132 mg/dL (70-110)
[2019-02-15] MEDS: amlodipine 10 mg Tablet PO (08:57)
[2019-02-15] MEDS: lisinopril 20 mg Tablet PO (08:57)
[2019-02-15] MEDS: pantoprazole 40 mg SDV IVP (08:58)
[2019-02-15] MEDS: morphine 4 mg/mL SDV 1 mL 2 MG IVP ×2 (09:10→14:12)
[2019-02-15] MEDS: simethicone 80 mg Chew PO (11:51)
[2019-02-15 11:55] LABS: Glucose Point of Care 119 mg/dL (70-110)
[2019-02-15 13:49] LABS: Basophils % 0.5 %; Eosinophils # 0.3 10^3/uL (0.0-0.8); Eosinophils % 3.1 %; Hematocrit 43.9 % (42.0-52.0); Hemoglobin 14.6 g/dL (11.7-16.6); Lymphocytes # 1.6 10^3/uL (0.8-4.8); Lymphocytes % 18.3 %; Mean Corpuscular HGB Conc 33.3 g/dL (30.0-36.0); Mean Corpuscular Hemoglobin 32.4 pg (28.0-34.0); Mean Corpuscular Volume 97.6 fL (80-94); Monocytes # 0.8 10^3/uL (0.2-0.9); Monocytes % 8.8 %; Neutrophils # 6.1 10^3/uL (1.8-7.7); Neutrophils % 69.1 %; Nucleated Red Blood Cells % 0 %; Platelet Count 293 10^3/cmm (130-400); Red Cell Distribution Width 13.2 % (12.1-15.1); White Blood Count 8.8 10^3/uL (4.0-10.0)
[2019-02-15 14:08] LABS: Alanine Aminotransferase 18 U/L (0-41); Albumin Level 4.4 g/dL (3.5-5.2); Alkaline Phosphatase 82 IU/L (40-130); Anion Gap 16.7 (5-19); Aspartate Amino Transferase 18 U/L (0-40); Blood Urea Nitrogen 12 mg/dL (6-20); C Reactive Protein 108.6 mg/L (0.0-4.9); Calcium 10.3 mg/Dl (8.6-10.0); Carbon Dioxide 26 mmol/L (22-29); Chloride 100 mmol/L (98-107); Chol HDL Ratio 4.13 mg/dL (1.0-5.00); Cholesterol 186 mg/dL (0-200); Globulin 3.6 g/dL (1.3-4.6); Glomerular Filtration Rate 76.5 mL/min (90-130); Glucose 119 mg/dL (74-109); HDL Cholesterol 45 mg/dL (60-100); LDL Cholesterol Calculated 114 mg/dL (50-129); LDL HDL Ratio 2.53 RATIO (0.00-3.22); Lipase 20 U/L (13-60); Potassium 3.7 mmol/L (3.5-5.1); Sodium 139 mmol/L (136-145); Total Bilirubin 0.6 mg/dL (0.15-1.2); Triglycerides 137 mg/dL (0-150)
[2019-02-15 14:40] LABS: Erythrocyte Sedimentation Rate 30 mm/hr (0-10)
--- NOTE | 2019-02-15 14:56 | PM.DCS ---
Discharge Providers Date of Admission: 02/13/19 20:40 Date of Discharge: 02/15/19 Attending Provider at Admission: Cristiano Chan MD Attending Provider at Discharge: Ajit Samuel MD Diagnoses at Discharge Discharge Diagnosis (1) Epigastric pain: Status: Acute (2) Hypertension: Status: Acute (3) GERD (gastroesophageal reflux disease): Status: Acute Qualifiers: Esophagitis presence: with esophagitis Qualified Code(s): K21.0 - Gastro-esophageal reflux disease with esophagitis Reason for Visit Reason for Visit: Reason For Visit: abd pain Hospital Course Discharge Summary: This is a 58-year-old male with a past medical history of hypertension, back pain, on chronic meloxicam who presents to the emergency room for abdominal pain. On admission patient had no significant LFT elevations, no significant lipase elevation, WBC count was 12.7, CT scan showed a mixed picture, mild peripancreatic stranding at the level of the pancreatic head concerning for early pancreatitis, mild periduodenal stranding which may be secondary to adjacent peripancreatic inflammatory change. Ultrasound negative for any gallstones, triglycerides 137, alcohol levels were negative. However, given his chronic meloxicam use, patient symptoms sounded much more like gastritis and peptic ulcer disease, thus surgery was consulted, was placed on IV fluids, bowel rest, IV Protonix, patient had a EGD by Dr. Javier, EGD that showed gastric erosions with gastritis. However after the procedure, patient continued to have some abdominal pain, nausea, thus was kept for the next 24 hours. Repeat blood work in the morning, showed no significant leukocytosis, no lipase elevation, no LFT elevations, abdominal pain improved, patient had a bowel movement, passing gas from below, nausea resolved. Patient was discharged on instructions to stop meloxicam, continue Protonix, with a close follow-up with Dr. Javier for as outpatient for biopsies and H. pylori results. Patient was advised that if he were to have recurrent abdominal pain, please come back to emergency room. Physical Exam Neck/C-Spine: COMMON NORMALS: no JVD Resp: COMMON NORMALS: normal respiratory effort, no retractions, no use of accessory muscles and clear to auscultation bilaterally AUSCULTATION: clear to auscultation bilaterally Cardio: COMMON NORMALS: no JVD, regular rate, regular rhythm, S1 normal heart sound, S2 normal heart sound, no murmurs and no rub RATE: regular rate RHYTHM: regular rhythm HEART SOUNDS: S1 normal and S2 normal GI: COMMON NORMALS: normal to inspection, nondistended, normoactive bowel sounds, soft to palpation, no hepatosplenomegaly, no masses and no bruits INSPECTION: Yes scar (Scar below the umbilicus) AUSCULTATION: Yes hypoactive bowel sounds PALPATION: Yes soft, Yes tender (Epigastric tenderness), No guarding, No rigid and Yes no hepatosplenomegaly Discharge Data Data Completed and Pending: Pending at discharge Category Date Time Status Helicobacter Pylo ri AG Stool Stat Lab 02/14/19 08:48 Ordered Pathology: Surgic al [PTH] Routine Pth 02/14/19 09:59 Received Labs from last 24 hours 02/15/19 02/15/19 02/15/19 13:10 13:10 13:10 WBC 8.8 RBC 4.50 Hgb 14.6 Hct 43.9 MCV 97.6 H MCH 32.4 MCHC 33.3 RDW 13.2 Plt Count 293 MPV 9.0 Neut % (Auto) 69.1 Lymph % (Auto) 18.3 [place] % (Auto) 8.8 Eos % (Auto) 3.1 Baso % (Auto) 0.5 Neut # (Auto) 6.1 Lymph # (Auto) 1.6 [place] # (Auto) 0.8 Eos # (Auto) 0.3 Baso # (Auto) 0.0 Nucleated RBC % (a uto) 0 Nucleated RBCs # 0.0 ESR 30 H Sodium 139 Potassium 3.7 Chloride 100 Carbon Dioxide 26 Anion Gap 16.7 BUN 12 Creatinine 1.0 GFR Calculation 76.5 L Glucose 119 H POC Glucose Estimat Average Gl ucose Hemoglobin A1c Calcium 10.3 H Total Bilirubin 0.6 AST 18 ALT 18 Alkaline Phosphata se 82 C-Reactive Protein 108.6 H Total Protein 8.0 Albumin 4.4 Globulin 3.6 Triglycerides 137 Cholesterol 186 LDL Cholesterol, C alc 114 HDL Cholesterol 45 L LDL/HDL Ratio 2.53 Cholesterol/HDL Ra andrez 4.13 Lipase 02/15/19 02/15/19 02/14/19 11:41 06:59 21:17 WBC RBC Hgb Hct MCV MCH MCHC RDW Plt Count MPV Neut % (Auto) Lymph % (Auto) [place] % (Auto) Eos % (Auto) Baso % (Auto) Neut # (Auto) Lymph # (Auto) [place] # (Auto) Eos # (Auto) Baso # (Auto) Nucleated RBC % (a uto) Nucleated RBCs # ESR Sodium Potassium Chloride Carbon Dioxide Anion Gap BUN Creatinine GFR Calculation Glucose POC Glucose 119 132 144 Estimat Average Gl ucose Hemoglobin A1c Calcium Total Bilirubin AST ALT Alkaline Phosphata se C-Reactive Protein Total Protein Albumin Globulin Triglycerides Cholesterol LDL Cholesterol, C alc HDL Cholesterol LDL/HDL Ratio Cholesterol/HDL Ra andrez Lipase 02/14/19 02/14/19 16:38 14:12 WBC RBC Hgb Hct MCV MCH MCHC RDW Plt Count MPV Neut % (Auto) Lymph % (Auto) [place] % (Auto) Eos % (Auto) Baso % (Auto) Neut # (Auto) Lymph # (Auto) [place] # (Auto) Eos # (Auto) Baso # (Auto) Nucleated RBC % (a uto) Nucleated RBCs # ESR Sodium Potassium Chloride Carbon Dioxide Anion Gap BUN Creatinine GFR Calculation Glucose POC Glucose 103 Estimat Average Gl ucose 126 Hemoglobin A1c 6.0 Calcium Total Bilirubin AST ALT Alkaline Phosphata se C-Reactive Protein Total Protein Albumin Globulin Triglycerides Cholesterol LDL Cholesterol, C alc HDL Cholesterol LDL/HDL Ratio Cholesterol/HDL Ra andrez Lipase Vitals: Last Vital Signs Temp 98.5 F 02/15/19 11:43 Pulse 67 02/15/19 11:43 Resp 16 02/15/19 14:12 BP 144/83 02/15/19 11:43 Pulse Ox 95 02/15/19 11:43 Discharge Plan Discharge Patient Disposition: Home, Self-Care Condition: Stable Prescriptions: New [place] 5-325 mg tablet 1 tab PO Q12H PRN (Reason: pain) 10 Days Qty: 20 RF: 0 lisinopril 20 mg Tablet 20 mg PO DAILY 30 Days Qty: 3 RF: 0 Continued Zofran 4 mg tablet 4 mg PO DAILY PRN (Reason: nausea and vomiting) 10 Days Qty: 10 RF: 0 tramadol 50 mg Tablet 50 mg PO BID PRN (Reason: Pain) 10 Days Qty: 20 RF: 0 amlodipine 10 mg Tablet 10 mg PO DAILY RF: 0 pantoprazole [Protonix] 40 mg tablet,delayed release (DR/EC) 40 mg PO Q12H 14 Days Qty: 28 RF: 0 Discontinued meloxicam 7.5 mg Tablet 7.5 mg PO BID RF: 0 omeprazole 20 mg Tablet,Delayed Release (Dr/Ec) 20 mg PO BID RF: 0 hydrocodone-acetaminophen [[place]] 5-325 mg tablet 1 tab PO Q6H PRN (Reason: pain) Qty: 20 RF: 0 Discharge Orders: Discharge Order (Routine); Ordered 02/15/19 Ordered By: Ajit Samuel Referrals: Sahil Javier MD [Physician] - 02/23/19 3:45 pm Discharge Diet: GI Soft Discharge Activity: Resume usual activity Patient Instructions: Lisinopril (By mouth), Hydrocodone/Acetaminophen (By mouth), Tramadol (By mouth), Ondansetron (By mouth), Pantoprazole (By mouth), Hypertension, Pancreatitis (DC), Diverticulitis (DC) Activity Restrictions/Additional Instructions: -Please drink plenty of electrolyte balance fluids -Slowly advance diet from a GI soft diet -Please use [place] and tramadol as prescribed, do not take together, risk of opiate overdose -If you have sudden worsening abdominal pain, please come back to the emergency room -Please stop NSAID use, please stop meloxicam use -Take Protonix 40 twice daily -Follow-up with primary care physician in the next week Stand Alone Forms: Work/School Release Discharge Attestations Time Spent in Discharge Care*: less than 30 min Quality Metrics Clinical Quality Measures During this hospital stay, did patient experience: None Coding Level of Care Code Acute Faculty Support Coordinator for g Fwd Diagnoses Epigastric pain R10.13 Hypertension I10 GERD (gastroesophageal reflux disease) K21.0 Esophagitis presence: with esophagitis
--- NOTE | 2019-02-15 18:36 | PC.NURSE ---
PT GIVEN DISCHARGE PAPERWORK AND GONE OVER INSTRUCTIONS AND NEW MEDICATIONS. NO QUESTIONS OR CONCERNS AT THIS TIME. PT INSTRUCTED TO CALL IF ANY QUESTIONS ARISE. PT REFUSED TO BE TAKEN BY WHEELCHAIR TO RIDE, PT WALKED WITH TO VEHICLE.
== END 2019-02-15 18:30 | disposition home or self-care (01) ==
LOC: ER 20:36 → MEDSURG 22:06
PROVIDERS: Surgery; Admitting Provider Internal Medicine; Emergency Provider Emergency Medicine; Family Provider Nurse Practitioner Family; Visit Provider Family Medicine
PROC: 0DJ08ZZ Inspection of Upper Intestinal Tract, Via Natural or Artificial Opening Endoscopic (ICD-10-PCS; CPT 43235; principal; 2019-02-14 09:30)
DX: K29.80 Duodenitis without bleeding (principal); I10 Essential (primary) hypertension; K21.0 Gastro-esophageal reflux disease with esophagitis; R73.03 Prediabetes; G89.29 Other chronic pain; M54.9 Dorsalgia, unspecified; Z79.891 Long term (current) use of opiate analgesic; M19.90 Unspecified osteoarthritis, unspecified site; Z82.49 Family history of ischemic heart disease and other diseases of the circulatory system; Z83.3 Family history of diabetes mellitus; Z87.891 Personal history of nicotine dependence
CPT/HCPCS: 36415; 36416; 43239; 74177; 76700; 80053; 80061; 81001; 82962; 83036; 83690; 83735; 84100; 84443; 84484; 85025; 85610; 85651; 86140; 87338; 88305; 93005; 96360; 96361; 96374; 96375; 99282; 99283; 99285; C9113; G0378; J1170; J2001; J2270; J2405; J2704; J3490; J7030; J7040; Q9967

== ENCOUNTER 2019-09-16 18:32 | Inpatient (IN) | payer BC, SELFPAY ==
[2019-09-16] VITALS (31 sets, daily range): BP systolic 116–180; BP diastolic 52–95; PULSE 72–92; RESP 15–27; TEMP 36.8–38.3; O2SAT 90–95; BMI 38.6
--- NOTE | 2019-09-16 18:37 | XRR_ITS ---
PROCEDURE INFORMATION: Exam: XR Chest, 1 View Exam date and time: 09/16/2019 7:13 PM Age: 58 years old Clinical indication: Cough and shortness of breath; Patient HX: Positive covid; Additional info: SOB TECHNIQUE: Imaging protocol: XR of the chest Views: 1 view. COMPARISON: CR Chest 1 [place] [id number] 04/03/2013 7:02 PM FINDINGS: Lungs: Hypoinflation and mild interstitial prominence. No acute infiltrate. Pleural space: No pleural effusion. Heart/Mediastinum: No cardiomegaly. Bones/joints: Unremarkable. When correlating with the previous study, no significant interval changes are present. XR/XR chest 1V portable [id number] IMPRESSION: Hypoinflation and mild interstitial prominence, without acute infiltrate.
--- NOTE | 2019-09-16 18:53 | ED_ITS ---
HPI - SOB/Dyspnea General: Chief Complaint: Shortness of Breath/Dyspnea Stated Complaint: COVID+/SOB Time Seen by Provider: 09/16/19 18:37 Source: patient Mode of arrival: ambulatory Limitations: no limitations History of Present Illness: HPI Narrative: 58-year-old male who states he has had a cough along with shortness of breath over the last 3 days and a fever. He states he is been having chest pain due to his cough. Patient states he tested for COVID 2 days ago and got called today and was told it was positive. Patient's currently 94% on room air. He denies any vomiting or diarrhea. He denies any worsening improving factors. He states that he feels like he cannot get deep breaths in. Associated symptoms: Reports chest pain and fever(s); Deny abdominal pain, nausea or vomiting Review of Systems Const: Reports: fever(s) Eyes: Denies: blurry vision or eye discomfort ENMT: Denies: throat pain or dental pain Card: Reports: chest pain Resp: Reports: dyspnea and non-productive cough GI: Denies: abdominal pain, nausea, vomiting or diarrhea : Denies: dysuria Musc: Denies: neck pain or back pain Skin/Breast: Denies: rash Neuro: Denies: headache(s) Psych: Denies: depression Jamie/Lymph: Denies: easy bruising All/Imm: Denies: urticaria PFSH ED PFSH: Medical History GERD (gastroesophageal reflux disease) Hypertension Surgical History H/O colectomy History of colon surgery History of esophagogastroduodenoscopy (EGD) 02/14/2019 esophagogastroduodenoscopy with biopsy Postop findings: Multiple gastric erosions S/P tonsillectomy Family History Mother Fibromyalgia Anesthesia complication Bleeding disorder Other CAD (coronary artery disease) Crohn's disease Diabetes Hypertension Social History Smoking and tobacco status: former smoker Alcohol intake: never Lives independently: Yes Household members: spouse Marital status: Current occupational status: employed History of recent travel: No Physical Exam Const: COMMON NORMALS: no acute distress, patient oriented x3 and healthy appearing HENMT: COMMON NORMALS: normocephalic and atraumatic HEAD & SCALP: normocephalic and atraumatic Eye: COMMON NORMALS: Equal, round and reactive pupils present and EOMs intact bilaterally PUPIL: Yes Equal, round and reactive pupils present Neck/C-Spine: COMMON NORMALS: full ROM and supple Chest: COMMONS NORMALS: normal inspection of the chest and normal palpation of entire chest wall Resp: COMMON NORMALS: normal respiratory effort, No retractions, No use of accessory muscles and clear to auscultation bilaterally AUSCULTATION: clear to auscultation bilaterally Cardio: COMMON NORMALS: regular rate, regular rhythm and No murmurs present (Cardio) RATE: regular rate RHYTHM: regular rhythm GI: COMMON NORMALS: Normal to inspection, nondistended, normoactive bowel sounds present, Soft to palpation, non-tender and no masses PALPATION: Yes Soft to palpation Extremity: COMMON NORMALS: normal to inspection and full ROM Neuro: COMMON NORMALS: patient oriented x3, moves all extremities and no focal motor deficits Psych: COMMON NORMALS: mental status grossly normal, Normal thought process present and cooperative THOUGHT PROCESS: Normal thought process present Skin: COMMON NORMALS: no rashes or lesions noted and no wounds GENERAL SKIN EXAM: no rashes or lesions noted Course Vital Signs: Vital signs: Vital Signs Temperature 98.3 F 09/16/19 21:33 Pulse Rate 79 09/16/19 22:00 Respiratory Rate 16 09/16/19 22:00 Blood Pressure 133/61 09/16/19 22:00 Pulse Oximetry 91 09/16/19 22:00 MDM - SOB/Dyspnea MDM Narrative: Medical decision making narrative: Patient presents here with COVID-19. Patient's oxygen saturation here is 92% he does have some dyspnea. He is in no severe distress. Hospitalist is seeing patient down the ER and will admit for observation at this time. Patient given Decadron and IV fluids in the ER. Lab Data: Labs: Lab Results 09/16/19 09/16/19 09/16/19 Range/Units 18:50 18:50 18:50 WBC Cancelled Corrected WBC Cancelled RBC Cancelled Hgb Cancelled Hct Cancelled MCV Cancelled MCH Cancelled MCHC Cancelled RDW Cancelled Plt Count Cancelled MPV Cancelled Gran % Cancelled Neut % (Auto) Cancelled Lymph % (Auto) Cancelled [place] % (Auto) Cancelled Eos % (Auto) Cancelled Baso % (Auto) Cancelled Neut # (Auto) Cancelled Lymph # (Auto) Cancelled [place] # (Auto) Cancelled Eos # (Auto) Cancelled Baso # (Auto) Cancelled Absolute Gran (aut o) Cancelled Nucleated RBC % (a uto) Cancelled Nucleated RBCs # Cancelled PT 12.40 (12.1-14.9) SECO NDS INR 0.90 (0.8-1.2) Fibrinogen 392 (174-498) mg/dL D-Dimer 0.74 H (0-0.59) ug/mIFE U Sodium Cancelled Potassium Cancelled Chloride Cancelled Carbon Dioxide Cancelled Anion Gap Cancelled BUN Cancelled Creatinine Cancelled GFR Calculation Cancelled Glucose Cancelled Calculated Osmolal ity Cancelled Lactic Acid (0.5-2.2) mmol/L Calcium Cancelled Total Bilirubin Cancelled AST Cancelled ALT Cancelled Alkaline Phosphata se Cancelled C-Reactive Protein Cancelled Total Protein Cancelled Albumin Cancelled Globulin Cancelled 09/16/19 09/16/19 09/16/19 Range/Units 19:20 19:52 19:52 WBC 5.8 Corrected WBC RBC 4.92 Hgb 15.1 Hct 45.4 MCV 92.3 MCH 30.7 MCHC 33.3 RDW 13.1 Plt Count 224 MPV 8.9 Gran % Neut % (Auto) 79.7 Lymph % (Auto) 12.3 [place] % (Auto) 7.1 Eos % (Auto) 0.5 Baso % (Auto) 0.2 Neut # (Auto) 4.60 Lymph # (Auto) 0.7 L [place] # (Auto) 0.4 Eos # (Auto) 0.0 Baso # (Auto) 0.0 Absolute Gran (aut o) Nucleated RBC % (a uto) 0 Nucleated RBCs # 0.0 PT (12.1-14.9) SECO NDS INR (0.8-1.2) Fibrinogen (174-498) mg/dL D-Dimer (0-0.59) ug/mIFE U Sodium 132 L Potassium 4.2 Chloride 99 Carbon Dioxide 20 L Anion Gap 17.2 BUN 16 Creatinine 1.0 GFR Calculation 76.5 L Glucose 113 Calculated Osmolal ity 271 L Lactic Acid 0.8 (0.5-2.2) mmol/L Calcium 9.2 Total Bilirubin 0.4 AST 25 ALT 19 Alkaline Phosphata se 64 C-Reactive Protein 28.8 H Total Protein 7.3 Albumin 4.4 Globulin 2.9 EKG Data^: EKG 1: Attestation: I personally reviewed and interpreted this EKG as follows: EKG Interpretation Date: 09/16/19 EKG interpretation time: 18:57 Interpretation: nsr hr [address] or t wave abnormalites qrs 97 qtc 407 Discharge Plan Discharge Patient Disposition: Admitted As Inpatient Clinical Impression: COVID-19 Condition: Stable Referrals: Polly Jim FNP [Primary Care Provider] - Coding Level of Care Code ED Manifest Clerk for Chg Fwd Exam Comprehensive
[2019-09-16] MEDS: acetaminophen 325 mg Tablet 650 MG PO (19:00)
[2019-09-16] MEDS: dexamethasone 10 mg/mL INJ IVP (19:06)
[2019-09-16 19:50] LABS: Alanine Aminotransferase 19 U/L (0-41); Albumin Level 4.4 g/dL (3.5-5.2); Alkaline Phosphatase 64 IU/L (40-130); Blood Urea Nitrogen 16 mg/dL (6-20); Calcium 9.2 mg/dL (8.5-10.5); Carbon Dioxide 20 mmol/L (22-29); Chloride 99 mmol/L (98-107); Globulin 2.9 g/dL (1.3-4.6); Glomerular Filtration Rate 76.5 mL/min (90-130); Glucose 113 mg/dL (65-115); Osmolality Calculated 271 mOsm/kg (285-295); Sodium 132 mmol/L (136-145); Total Bilirubin 0.4 mg/dL (0.15-1.2); Total Protein 7.3 g/dL (6.6-8.7)
[2019-09-16 19:52] LABS: Anion Gap 17.2 (5-19); Aspartate Amino Transferase 25 U/L (0-40); Potassium 4.2 mmol/L (3.5-5.1)
[2019-09-16 19:57] LABS: Basophils % 0.2 %; Eosinophils % 0.5 %; Hematocrit 45.4 % (42.0-52.0); Hemoglobin 15.1 g/dL (11.7-16.6); Lymphocytes # 0.7 10^3/uL (0.8-4.8); Lymphocytes % 12.3 %; Mean Corpuscular HGB Conc 33.3 g/dL (30.0-36.0); Mean Corpuscular Hemoglobin 30.7 pg (28.0-34.0); Mean Corpuscular Volume 92.3 fL (80-94); Mean Platelet Volume 8.9 fL (7.4-10.4); Monocytes # 0.4 10^3/uL (0.2-0.9); Monocytes % 7.1 %; Neutrophils % 79.7 %; Nucleated Red Blood Cells % 0 %; Platelet Count 224 10^3/cmm (130-400); Red Blood Count 4.92 10^6/uL (4.1-5.3); Red Cell Distribution Width 13.1 % (12.1-15.1); White Blood Count 5.8 10^3/uL (4.0-10.0)
[2019-09-16 20:12] LABS: Fibrinogen 392 mg/dL (174-498)
[2019-09-16 20:13] LABS: Lactic Sepsis W/Reflex 0.8 mmol/L (0.5-2.2)
[2019-09-16 20:16] LABS: D Dimer 0.74 ug/mIFEU (0-0.59)
[2019-09-16 20:29] LABS: C Reactive Protein 28.8 mg/L (0.0-4.9)
--- NOTE | 2019-09-16 22:08 | P.HP_ITS ---
Providers/Chief Complaint Primary Care Provider: TERESA Adams Chief Complaint: COVID+/SOB History of Present Illness Maurilio Capone is a 58 year old male with history of cough, fever for the last 4 days. He had a COVID test done, which is positive. He reports he is not sure where he got this. 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 He has not been able to take very much by mouth, and has had significant decrease in his fluids lately. This is secondary to nausea. He is also having significant generalized pain, loose stool, and significant shortness of breath with mild exertion. He is not for sure if he can hydrate further at home. Review of Systems General: Reports: 10 or more systems reviewed and unremarkable except in HPI and below Const: Reports: fever(s), chills and body aches Eyes: Denies: change in vision ENMT: Denies: throat pain Card: Reports: dyspnea on exertion; Denies: chest pain Resp: Reports: dyspnea GI: Reports: nausea and diarrhea; Denies: abdominal pain : Denies: flank pain Musc: Denies: neck pain Skin/Breast: Denies: rash Neuro: Denies: headache(s) Psych: Denies: anxiety Endo: Denies: polyuria Jamie/Lymph: Denies: easy bruising All/Imm: Denies: urticaria Medications/Allergies Home Medications Medication Instructions Recorded Confirmed Last Taken Type ondansetron HCl 4 mg tablet 4 mg PO QDAY PRN tab 03/05/19 03/05/19 Unknown History tramadol 50 mg tablet 50 mg PO BID PRN 30 Days #60 tab 03/05/19 03/05/19 Unknown Rx amlodipine 10 mg tablet 10 mg PO DAILY #30 tab 09/02/19 Unknown Rx lisinopril 20 mg tablet 20 mg PO DAILY #30 tab 09/02/19 Unknown Rx Prilosec OTC 50 mg 09/16/19 Unknown History aspirin 81 mg 09/16/19 Unknown History Allergies Allergy/AdvReac Type Severity Reaction Status Date / Time meloxicam [From Mobic] Allergy Mild ulcers Verified 03/05/19 13:57 PFSH Acute PFSH: Medical History (Updated 09/16/19 @ 22:19 by Kraig Gould MD) Diverticulosis Gastritis GERD (gastroesophageal reflux disease) Hypertension Obesity Surgical History H/O colectomy History of colon surgery History of esophagogastroduodenoscopy (EGD) 02/14/2019 esophagogastroduodenoscopy with biopsy Postop findings: Multiple gastric erosions S/P tonsillectomy Family History Mother Fibromyalgia Anesthesia complication Bleeding disorder Other CAD (coronary artery disease) Crohn's disease Diabetes Hypertension Social History Smoking and tobacco status: former smoker Alcohol intake: never Lives independently: Yes Household members: spouse Marital status: Current occupational status: employed History of recent travel: No Vitals/I&O/Wt Last Vital Signs Temp 98.3 F 09/16/19 21:33 Pulse 79 09/16/19 22:00 Resp 16 09/16/19 22:00 BP 133/61 09/16/19 22:00 Pulse Ox 91 09/16/19 22:00 Weight last 48 hrs Weight 129.274 kg Physical Exam Narrative: EXAM NARRATIVE: General exam is an obese white male who appears tired with a mild increase in his respiratory rate. Intermittently coughing HEENT: Pupils equally round. Oropharynx clear Neck is supple, no lymphadenopathy or thyromegaly Cardiovascular regular rate and rhythm without murmur, no S3 or S4 Lungs few bibasilar crackles. No wheezing Abdomen is soft with positive bowel sounds. No obvious organomegaly was deferred Extremities no cyanosis clubbing or edema, cap refill brisk Skin no rash Neuro no focal deficits. Data : 09/16/19 19:52 09/16/19 19:20 Micro: Microbiology 09/16/19 19:52 Blood Culture - Preliminary Blood SPECIMEN COLLECTED 09/16/19 18:50 Blood Culture - Preliminary Blood SPECIMEN COLLECTED Other data: D-dimer elevated at 0.74 Liver function tests normal CRP elevated at 28 Chest x-ray shows some bibasilar bilateral patchy infiltrate consistent with viral pneumonia A&P Assessment and plan (1) Pneumonia: This is viral pneumonia secondary to Covid 19. I do not believe a bacterial process is going on currently. Will check a procalcitonin level. Status: Acute (2) COVID-19: Currently not needing oxygen although level is borderline at 91 to 92%. Secondary to his significant symptoms of dyspnea on exertion, fever, nausea with inability to take significant amount of liquids he will need hydration overnight and reassessment in the morning to determine if he can discharge home safely. At this point initiate dexamethasone Discussed with him limitations of inability to provide plasma here. At this point remdisivir is not warranted unless worsening requiring oxygen Repeat inflammatory markers tomorrow Status: Acute (3) GERD (gastroesophageal reflux disease): Continue Protonix Status: Chronic Qualifiers: Esophagitis presence: with esophagitis Qualified Code(s): K21.0 - Gastro-esophageal reflux disease with esophagitis (4) Hypertension: Continue home medications Status: Chronic Additional A&P Information Mild dehydration, will hydrate history of hospitalization in February for gastritis. Past history of fibromyalgia, although he does not seem to focus on this as a significant part of his history currently. Full code Lovenox for DVT prophylaxis Attestations Medical Necessity Statement*: Will need less than 2 midnight stay for evaluation and treatment of viral pneumonia, rehydration, and close monitoring for worsening. Time Spent in Patient Care: Greater than 35 minutes Coding Level of Care Code Acute Propagation Worker for [facility] Fwd Diagnoses Pneumonia J18.9 COVID-19 U07.1 GERD (gastroesophageal reflux disease) K21.0 Esophagitis presence: with esophagitis Hypertension I10
[2019-09-16] MEDS: sodium chloride 0.9% 1,000 ML 999 ML IV (22:10)
[2019-09-16] MEDS: sodium chloride 0.9% 1,000 ML 75 ML IV (23:26)
[2019-09-16] MEDS: enoxaparin 40 mg/0.4 mL Syringe SUBCUT (23:35)
[2019-09-16] MEDS: pantoprazole DR 40 mg Tablet PO (23:37)
[2019-09-17] VITALS (8 sets, daily range): BP systolic 125–149; BP diastolic 71–87; PULSE 69–77; RESP 19–24; TEMP 36.6–37; O2SAT 92–96
[2019-09-17 00:08] LABS: Procalcitonin 0.09 ng/mL (0-0.5)
--- NOTE | 2019-09-17 01:33 | PC.NURSE ---
During night patient stats dropped down to 88%, patient placed on 2L NC [id number] 95%.
[2019-09-17 05:52] LABS: Basophils % 0.3 %; Hematocrit 46.5 % (42.0-52.0); Hemoglobin 15.4 g/dL (11.7-16.6); Lymphocytes # 0.5 10^3/uL (0.8-4.8); Mean Corpuscular HGB Conc 33.1 g/dL (30.0-36.0); Mean Corpuscular Volume 93.6 fL (80-94); Mean Platelet Volume 9.2 fL (7.4-10.4); Monocytes # 0.1 10^3/uL (0.2-0.9); Monocytes % 3.4 %; Neutrophils # 2.64 10^3/uL (1.8-7.7); Neutrophils % 80.7 %; Nucleated Red Blood Cells % 0 %; Platelet Count 229 10^3/cmm (130-400); Red Blood Count 4.97 10^6/uL (4.1-5.3); White Blood Count 3.3 10^3/uL (4.0-10.0)
[2019-09-17 06:10] LABS: D Dimer 0.75 ug/mIFEU (0-0.59)
[2019-09-17 06:12] LABS: Procalcitonin 0.09 ng/mL (0-0.5)
[2019-09-17 06:22] LABS: Ferritin 760 ng/mL (30-400)
[2019-09-17 06:52] LABS: Alanine Aminotransferase 19 U/L (0-41); Albumin Level 4.2 g/dL (3.5-5.2); Alkaline Phosphatase 64 IU/L (40-130); Aspartate Amino Transferase 16 U/L (0-40); Blood Urea Nitrogen 16 mg/dL (6-20); C Reactive Protein 27.7 mg/L (0.0-4.9); Calcium 8.9 mg/dL (8.5-10.5); Carbon Dioxide 18 mmol/L (22-29); Chloride 104 mmol/L (98-107); Globulin 3.4 g/dL (1.3-4.6); Glomerular Filtration Rate 86.4 mL/min (90-130); Glucose 174 mg/dL (65-115); Magnesium 2.3 mg/dL (1.7-2.3); Osmolality Calculated 285 mOsm/kg (285-295); Sodium 137 mmol/L (136-145); Total Bilirubin 0.3 mg/dL (0.15-1.2); Total Protein 7.6 g/dL (6.6-8.7)
[2019-09-17 06:53] LABS: Anion Gap 19.6 (5-19); Potassium 4.6 mmol/L (3.5-5.1)
[2019-09-17] MEDS: dexamethasone 4 mg Tablet 6 MG PO (09:38)
[2019-09-17] MEDS: amlodipine 10 mg Tablet PO (09:38)
[2019-09-17] MEDS: aspirin 81 mg EC Tablet PO (09:38)
[2019-09-17] MEDS: lisinopril 20 mg Tablet PO (09:39)
[2019-09-17 09:43] LABS: Bilirubin Urine Neg (NEGATIVE); Blood Urine Neg (Negative); Glucose Urine UA Norm (Normal); Ketones Urine Negative (Negative); Leukocyte Esterase Urine Negative (Negative); Nitrate Urine Negative (Negative); Protein Urine Neg (Negative); Specific Gravity, Urine 1.015 (1.005-1.030); Urine Appearance Clear (CLEAR); Urine Color Yellow (Yellow); Urobilinogen Urine Norm (Negative); pH Urine 5 (5-7)
[2019-09-17 10:07] LABS: Add Urine Culture? No; Bacteria Urine TRACE; Mucus Urine TRACE
--- NOTE | 2019-09-17 10:34 | CTR_ITS ---
PROCEDURE INFORMATION: Exam: CT Angiography Chest With Contrast Exam date and time: 09/17/2019 1:25 PM Age: 58 years old Clinical indication: Patient HX: Cough and fever covid+; Additional info: R/O pe TECHNIQUE: Imaging protocol: Computed tomographic angiography of the chest with intravenous contrast. 3D rendering: MIP and/or 3D reconstructed images were created by the technologist. Radiation optimization: All CT scans at this facility use at least one of these dose optimization techniques: automated exposure control; mA and/or kV adjustment per patient size (includes targeted exams where dose is matched to clinical indication); or iterative reconstruction. Contrast material: OMNI 350; Contrast volume: 95 ml; Contrast route: INTRAVENOUS (IV); COMPARISON: CR XR chest 1V portable [id number] 09/16/2019 6:57 PM RADIATION DOSE METRICS: Total DLP (mGy-cm): 618.92 FINDINGS: Pulmonary arteries: There is no evidence of filling defects within the pulmonary arterial circulation to suggest pulmonary embolism. Aorta: Unremarkable. No aortic aneurysm. No aortic dissection. Lungs: There are scattered areas of subsegmental atelectasis in both lungs mainly in the lung bases. There is also some minimal peripheral ground-glass opacity laterally in the right lower lobe and in the posterolateral aspect of the lingula which may be consistent with the given clinical history of COVID-19. Pleural space: Unremarkable. No pneumothorax. No pleural effusion. Heart: Unremarkable. No cardiomegaly. No pericardial effusion. Lymph nodes: There is some tiny subcarinal and paratracheal lymph nodes but no adenopathy. Bones/joints: Unremarkable. No acute fracture. Soft tissues: Unremarkable. CT/CT angio chest PE protcl [id number] IMPRESSION: No evidence of pulmonary embolism. Radiation Dose CTDIVOL = (mGy): DLP = 618.92 (mGy-cm)
[2019-09-17 11:53] LABS: Glucose Point of Care 147 mg/dL (70-110)
[2019-09-17 13:04] LABS: Lactic Sepsis W/Reflex 1.8 mmol/L (0.5-2.2)
[2019-09-17 13:14] LABS: NT Pro B Type Natriuretic Pept 64 pg/mL (0-125)
[2019-09-17] MEDS: sodium chloride 0.9% 1,000 ML 75 ML IV (13:27)
--- NOTE | 2019-09-17 13:32 | PC.NURSE ---
Addendum entered by Snow Tena RN 09/17/19 13:37: pt also instructed to rinse mouth after inhaling spiriva..to prevent thrush.pt verb understanding. Original Note: instructed pt in advair and spiriva use.doses given as ordered at 12:00.pt demonstrated proper use.
--- NOTE | 2019-09-17 13:34 | PC.NURSE ---
dr bland in to see pt.he has ordered rendesivir,inhalers,vitamins,ct scan of chest,and additional labs for pt.pt updated to plan of care and verb understanding.
--- NOTE | 2019-09-17 16:05 | P.PN_ITS ---
Vitals/I&O/Wt Last Vital Signs Temp 98.1 F 09/17/19 11:46 Pulse 73 09/17/19 11:46 Resp 20 H 09/17/19 11:46 BP 132/83 09/17/19 11:46 Pulse Ox 94 09/17/19 11:46 09/17/19 09/17/19 09/17/19 06:59 14:59 22:59 Intake Total 1001.25 / 1001.25 1598.75 / 1598.75 Output Total 500 / 500 250 / 250 Balance 501.25 / 501.25 1348.75 / 1348.75 Weight last 48 hrs Weight 126.008 kg Weight 129.274 kg Physical Exam Narrative: EXAM NARRATIVE: General exam is an obese white male who appears tired with a mild increase in his respiratory rate. Intermittently coughing HEENT: Pupils equally round. Oropharynx clear Neck is supple, no lymphadenopathy or thyromegaly Cardiovascular regular rate and rhythm without murmur, no S3 or S4 Lungs few bibasilar crackles. No wheezing Abdomen is soft with positive bowel sounds. No obvious organomegaly was deferred Extremities no cyanosis clubbing or edema, cap refill brisk Skin no rash Neuro no focal deficits. Data : 09/17/19 05:20 09/17/19 05:20 Micro: Microbiology 09/17/19 08:15 Legionella Urinary Antigen - Final Urethra 09/16/19 19:52 Blood Culture - Preliminary Blood SPECIMEN COLLECTED 09/16/19 18:50 Blood Culture - Preliminary Blood SPECIMEN COLLECTED A&P Assessment and plan (1) Pneumonia: Status: Acute (2) COVID-19: Status: Acute (3) GERD (gastroesophageal reflux disease): Continue Protonix Status: Chronic Qualifiers: Esophagitis presence: with esophagitis Qualified Code(s): K21.0 - Gastro-esophageal reflux disease with esophagitis (4) Hypertension: Continue home medications Status: Chronic Additional A&P Information COVID-19 pneumonia: He is requiring 2 L of oxygen supplementation keeping saturation over 92%. This makes him moderate COVID-19 patient. Because of this reason we will start him on Remdesevir. Plan would be to continue medication for over 5 days. Continue with Decadron. Start patient on Advair, Spiriva, incentive spirometry. Start patient on Tessalon Perles as needed. Start patient on insulin sliding scale as he is on Decadron also start him on nystatin swish and swallow as required. Discussed in detail with the patient regarding need for prone positioning during rest and sleep. We will continue following inflammatory markers like ferritin, ESR, CRP, d- dimer, LDH every day. Oxygen supplementation keeping saturation over 92%. Tylenol for fever. D-dimer is elevated. Will do CTA PE to rule out pulmonary embolism. Patient would most likely require anticoagulation for next 2 weeks as he is COVID-19 and they are at a higher risk of developing thrombosis but given his history of gastric erosion and anemia in the past with coffee-ground diarrhea in last 1 week CTA PE is important to rule out current embolism because that will determine for how long would he need anticoagulation as an outpatient Check sputum culture, urine Legionella. Check procalcitonin. For now chances of bacterial pneumonia are low so we will hold off on any antibiotics for now. Hypertension: Continue home medication of lisinopril and amlodipine. Goal blood pressure less than 140/90 mmHg with mean artery pressure over 65 mmHg. GERD/history of gastritis on endoscopy: Continue with Protonix 40 mg IV twice daily. Full code Cardiac carb consistent diet. Ambulate out of bed to chair. Patient's family including his and patient have been explained in detail regarding the disease process and the medications required. It is also discussed in detail that in case if he is requiring more oxygen supplementation for mechanical ventilation at that point we might have to transfer him to a higher tertiary center for other modes of treatment like pruning while on mechanical ventilation for plasma therapy. Attestations Medical Necessity Statement*: COVID-19 pneumonia Critical Care Time: Critical Care Time (min): 80 Coding Level of Care Code Acute Director Payment for [facility] Diagnoses Pneumonia J18.9 COVID-19 U07.1 GERD (gastroesophageal reflux disease) K21.0 Esophagitis presence: with esophagitis Hypertension I10
[2019-09-17] MEDS: enoxaparin 120 mg/0.8 mL Syringe SUBCUT (16:30)
[2019-09-17 17:18] LABS: Glucose Point of Care 177 mg/dL (70-110)
[2019-09-17] MEDS: ascorbic acid 500 mg Tablet PO (18:04)
[2019-09-17] MEDS: pantoprazole DR 40 mg Tablet PO (18:05)
[2019-09-17] MEDS: iohexol 350 mg/mL 100 mL Btl IV (18:34)
--- NOTE | 2019-09-17 18:39 | PC.RESP ---
PATIENT DOES NOT HAVE A QUALIFYING HX OF LUNG DISEASE AND DOES NOT QUALIFY FOR PULMONARY REHAB AT THIS TIME.
--- NOTE | 2019-09-17 19:30 | PC.NURSE ---
ct scan completed and results phoned to dr bland.pt tolerated procedre well.
[2019-09-17 21:14] LABS: Glucose Point of Care 188 mg/dL (70-110)
--- NOTE | 2019-09-17 22:24 | PC.NURSE ---
patient IV line reinforced with coban per patient request. patient iv patent and dry. patient does not have any pain at iv site.
[2019-09-18] VITALS (11 sets, daily range): BP systolic 115–151; BP diastolic 58–89; PULSE 61–80; RESP 18–26; TEMP 36.5–37; O2SAT 93–96
--- NOTE | 2019-09-18 03:41 | PC.NURSE ---
patient weight 275.7lbs
[2019-09-18] MEDS: enoxaparin 120 mg/0.8 mL Syringe SUBCUT ×2 (04:59→16:52)
--- NOTE | 2019-09-18 05:00 | PC.NURSE ---
attempted blood draw 2x by nurse, unable to get blood draw, lab called for blood draw
[2019-09-18] MEDS: acetaminophen 325 mg Tablet 650 MG PO (05:25)
[2019-09-18 07:08] LABS: Glucose Point of Care 139 mg/dL (70-110)
[2019-09-18] MEDS: sodium chloride 0.9% 1,000 ML 75 ML IV (07:44)
[2019-09-18] MEDS: amlodipine 10 mg Tablet PO (09:39)
[2019-09-18] MEDS: ascorbic acid 500 mg Tablet PO ×2 (09:41→17:58)
[2019-09-18] MEDS: lisinopril 20 mg Tablet PO (09:41)
[2019-09-18] MEDS: dexamethasone 10 mg/mL INJ 5 MG IVP (09:41)
[2019-09-18] MEDS: aspirin 81 mg EC Tablet PO (09:41)
[2019-09-18] MEDS: pantoprazole DR 40 mg Tablet PO ×2 (09:42→17:58)
[2019-09-18] MEDS: thiamine 100 mg Tablet PO (09:42)
[2019-09-18] MEDS: zinc gluconate 50 mg Tablet PO (09:42)
[2019-09-18 10:15] LABS: Eosinophils % 0.1 %; Hematocrit 42.5 % (42.0-52.0); Hemoglobin 14.3 g/dL (11.7-16.6); Lymphocytes # 0.6 10^3/uL (0.8-4.8); Lymphocytes % 6.9 %; Mean Corpuscular HGB Conc 33.6 g/dL (30.0-36.0); Mean Corpuscular Hemoglobin 31.4 pg (28.0-34.0); Mean Corpuscular Volume 93.2 fL (80-94); Mean Platelet Volume 9.6 fL (7.4-10.4); Monocytes # 0.4 10^3/uL (0.2-0.9); Monocytes % 4.8 %; Neutrophils % 87.9 %; Nucleated Red Blood Cells % 0 %; Platelet Count 275 10^3/cmm (130-400); Red Blood Count 4.56 10^6/uL (4.1-5.3); Red Cell Distribution Width 13.2 % (12.1-15.1); White Blood Count 8.7 10^3/uL (4.0-10.0)
[2019-09-18 10:18] LABS: Fibrinogen 434 mg/dL (174-498)
[2019-09-18 10:21] LABS: D Dimer 0.38 ug/mIFEU (0-0.59)
[2019-09-18 10:31] LABS: Alanine Aminotransferase 19 U/L (0-41); Albumin Level 3.9 g/dL (3.5-5.2); Alkaline Phosphatase 57 IU/L (40-130); Anion Gap 15.2 (5-19); Aspartate Amino Transferase 18 U/L (0-40); Blood Urea Nitrogen 19 mg/dL (6-20); Calcium 8.5 mg/dL (8.5-10.5); Carbon Dioxide 21 mmol/L (22-29); Chloride 108 mmol/L (98-107); Creatine Phosphokinase 88 U/L (39-308); Globulin 3.1 g/dL (1.3-4.6); Glomerular Filtration Rate 86.4 mL/min (90-130); Glucose 190 mg/dL (65-115); Magnesium 2.1 mg/dL (1.7-2.3); Osmolality Calculated 292 mOsm/kg (285-295); Potassium 4.2 mmol/L (3.5-5.1); Sodium 140 mmol/L (136-145); Total Bilirubin 0.3 mg/dL (0.15-1.2)
[2019-09-18 10:41] LABS: Ferritin 651 ng/mL (30-400); Lactate Dehydrogenase 228 U/L (135-225); NT Pro B Type Natriuretic Pept 146 pg/mL (0-125)
[2019-09-18 12:10] LABS: Glucose Point of Care 150 mg/dL (70-110)
--- NOTE | 2019-09-18 14:56 | P.PN_ITS ---
Subjective Subjective: Interval history: No acute events overnight. Patient has remained afebrile. Patient states he is feeling more energetic today. On examination patient is on 1 L nasal cannula saturating 94%. During my exam oxygen was turned off and he had remained more than 94% on room air. He complains of mild cough. But states overall he is feeling a lot better. Denies of having any nausea, vomiting, headache, palpitation. Patient is able to do incentive spirometry. He is able to lie on one side during sleeping. Vitals/I&O/Wt Last Vital Signs Temp 98.1 F 09/18/19 12:00 Pulse 80 09/18/19 12:00 Resp 20 H 09/18/19 12:00 BP 150/89 09/18/19 12:00 Pulse Ox 93 09/18/19 12:00 09/17/19 09/18/19 09/18/19 22:59 06:59 14:59 Intake Total 240 / 1838.75 1560 / 3398.75 Output Total 750 / 1000 600 / 1600 800 / 800 Balance -510 / 838.75 960 / 1798.75 -800 / -800 Weight last 48 hrs Weight 126.008 kg Weight 129.274 kg Physical Exam Narrative: EXAM NARRATIVE: General exam is an obese white male who appears tired with a mild increase in his respiratory rate. Intermittently coughing HEENT: Pupils equally round. Oropharynx clear Neck is supple, no lymphadenopathy or thyromegaly Cardiovascular regular rate and rhythm without murmur, no S3 or S4 Lungs few bibasilar crackles. No wheezing Abdomen is soft with positive bowel sounds. No obvious organomegaly was deferred Extremities no cyanosis clubbing or edema, cap refill brisk Skin no rash Neuro no focal deficits. Data : 09/18/19 09:40 09/18/19 09:40 Micro: Microbiology 09/16/19 19:52 Blood Culture - Preliminary Blood NEGATIVE TO DATE 09/16/19 18:50 Blood Culture - Preliminary Blood NEGATIVE TO DATE 09/17/19 08:15 Legionella Urinary Antigen - Final Urethra A&P Assessment and plan (1) Pneumonia: Status: Acute (2) COVID-19: Status: Acute (3) GERD (gastroesophageal reflux disease): Continue Protonix Status: Chronic Qualifiers: Esophagitis presence: with esophagitis Qualified Code(s): K21.0 - Gastro-esophageal reflux disease with esophagitis (4) Hypertension: Continue home medications Status: Chronic Additional A&P Information COVID-19 pneumonia: He is requiring 2 L of oxygen supplementation keeping saturation over 92%. This makes him moderate COVID-19 patient. Continue with Remdesevir. Day 2 today. If patient continues to do well can plan to stop the treatment after 3 days. Patient is on room air now. Inflammatory markers improving. Continue with Decadron. Continue with Advair, Spiriva, incentive spirometry. Continue with Tessalon Perles as needed, oral zinc, thiamine, vitamin C. Start patient on insulin sliding scale as he is on Decadron also start him on nystatin swish and swallow as required. Discussed in detail with the patient regarding need for prone positioning during rest and sleep. We will continue following inflammatory markers like ferritin, ESR, CRP, d- dimer, LDH every day. Oxygen supplementation keeping saturation over 92%. Tylenol for fever. D-dimer is elevated. CTA PE negative for embolism. For now we will continue on full dose of Lovenox. Most likely will discharge patient on anticoagulation for next 1 week on discharge as patient with COVID-19 have been found to have high chances of thrombosis leading to pulmonary embolism. Follow-up sputum culture. Legionella negative. Looking at the blood work, clinical picture is chances of patient having a bacterial pneumonia are low. Sputum culture results awaited. Hypertension: Continue home medication of lisinopril and amlodipine. Goal blood pressure less than 140/90 mmHg with mean artery pressure over 65 mmHg. GERD/history of gastritis on endoscopy: Continue with Protonix 40 mg IV twice daily. Full code Cardiac carb consistent diet. Ambulate out of bed to chair. Patient's family including his and patient have been explained in detail regarding the disease process and the medications required. It is also discussed in detail that in case if he is requiring more oxygen supplementation for mechanical ventilation at that point we might have to transfer him to a higher tertiary center for other modes of treatment like pruning while on mechanical ventilation for plasma therapy. Attestations Medical Necessity Statement*: COVID-19 pneumonia Critical Care Time: Critical Care Time (min): 80 Coding Level of Care Code Acute Parent Trainer for [facility] Diagnoses Pneumonia J18.9 COVID-19 U07.1 GERD (gastroesophageal reflux disease) K21.0 Esophagitis presence: with esophagitis Hypertension I10
[2019-09-18 16:53] LABS: Glucose Point of Care 184 mg/dL (70-110)
[2019-09-18] MEDS: TRAMadol 50 mg Tablet PO (19:43)
[2019-09-18 20:36] LABS: Glucose Point of Care 231 mg/dL (70-110)
[2019-09-18] MEDS: HYDROcodone-acetaminophen 5-325 mg Tablet 1 TAB PO (23:55)
[2019-09-19] VITALS (10 sets, daily range): BP systolic 136–150; BP diastolic 76–91; PULSE 60–79; RESP 14–23; TEMP 36.5–37.1; O2SAT 93–95
[2019-09-19 05:18] LABS: Eosinophils % 0.1 %; Hematocrit 42.9 % (42.0-52.0); Hemoglobin 14.3 g/dL (11.7-16.6); Lymphocytes # 0.7 10^3/uL (0.8-4.8); Lymphocytes % 6.9 %; Mean Corpuscular HGB Conc 33.3 g/dL (30.0-36.0); Mean Corpuscular Volume 92.9 fL (80-94); Mean Platelet Volume 9.4 fL (7.4-10.4); Monocytes # 0.7 10^3/uL (0.2-0.9); Monocytes % 6.7 %; Neutrophils # 8.93 10^3/uL (1.8-7.7); Neutrophils % 85.9 %; Nucleated Red Blood Cells % 0 %; Platelet Count 311 10^3/cmm (130-400); Red Blood Count 4.62 10^6/uL (4.1-5.3); Red Cell Distribution Width 13.2 % (12.1-15.1); White Blood Count 10.4 10^3/uL (4.0-10.0)
[2019-09-19] MEDS: enoxaparin 120 mg/0.8 mL Syringe SUBCUT ×2 (05:28→17:04)
[2019-09-19 05:48] LABS: Fibrinogen 439 mg/dL (174-498)
[2019-09-19 05:50] LABS: D Dimer 0.35 ug/mIFEU (0-0.59)
[2019-09-19 05:53] LABS: Alanine Aminotransferase 21 U/L (0-41); Albumin Level 3.8 g/dL (3.5-5.2); Alkaline Phosphatase 54 IU/L (40-130); Blood Urea Nitrogen 19 mg/dL (6-20); C Reactive Protein 6.5 mg/L (0.0-4.9); Calcium 8.5 mg/dL (8.5-10.5); Carbon Dioxide 21 mmol/L (22-29); Chloride 106 mmol/L (98-107); Globulin 2.9 g/dL (1.3-4.6); Glomerular Filtration Rate 115.4 mL/min (90-130); Glucose 161 mg/dL (65-115); Osmolality Calculated 286 mOsm/kg (285-295); Sodium 138 mmol/L (136-145); Total Bilirubin 0.2 mg/dL (0.15-1.2); Total Protein 6.7 g/dL (6.6-8.7)
[2019-09-19 05:54] LABS: Ferritin 632 ng/mL (30-400)
[2019-09-19 06:04] LABS: Anion Gap 15.4 (5-19); Aspartate Amino Transferase 17 U/L (0-40); Potassium 4.4 mmol/L (3.5-5.1)
[2019-09-19 06:12] LABS: Lactate Dehydrogenase 282 U/L (135-225)
[2019-09-19 07:14] LABS: Glucose Point of Care 138 mg/dL (70-110)
[2019-09-19] MEDS: amlodipine 10 mg Tablet PO (08:54)
[2019-09-19] MEDS: thiamine 100 mg Tablet PO (08:55)
[2019-09-19] MEDS: zinc gluconate 50 mg Tablet PO (08:55)
[2019-09-19] MEDS: aspirin 81 mg EC Tablet PO (08:55)
[2019-09-19] MEDS: lisinopril 20 mg Tablet PO (08:55)
[2019-09-19] MEDS: pantoprazole DR 40 mg Tablet PO ×2 (08:55→17:05)
[2019-09-19] MEDS: ascorbic acid 500 mg Tablet PO ×2 (08:55→17:04)
[2019-09-19] MEDS: benzonatate 100 mg Capsule PO (08:56)
[2019-09-19] MEDS: dexamethasone 10 mg/mL INJ 5 MG IVP (10:19)
[2019-09-19 11:02] LABS: Glucose Point of Care 179 mg/dL (70-110)
[2019-09-19 11:06] LABS: Erythrocyte Sedimentation Rate 11 mm/hr (0-10)
--- NOTE | 2019-09-19 15:28 | PM.PN ---
Subjective Subjective: Interval history: No acute events overnight. Patient has remained afebrile. Patient has been on room air for last 24 hours saturating more than 92%. He continues to do well with an incentive spirometry. He is able to lay down on his stomach while sleeping. Energy levels are good. His appetite is better. He denies of any nausea, vomiting, headache, dizziness. Vitals/I&O/Wt Last Vital Signs Temp 98.4 F 09/19/19 12:00 Pulse 76 09/19/19 12:00 Resp 18 09/19/19 12:00 BP 138/76 09/19/19 12:00 Pulse Ox 94 09/19/19 12:00 09/19/19 09/19/19 09/19/19 06:59 14:59 22:59 Intake Total 480 / 1280 960 / 960 Output Total 500 / 1600 450 / 450 Balance -20 / -320 510 / 510 Physical Exam Narrative: EXAM NARRATIVE: General exam is an obese white male who appears tired with a mild increase in his respiratory rate. Intermittently coughing HEENT: Pupils equally round. Oropharynx clear Neck is supple, no lymphadenopathy or thyromegaly Cardiovascular regular rate and rhythm without murmur, no S3 or S4 Lungs few bibasilar crackles. No wheezing Abdomen is soft with positive bowel sounds. No obvious organomegaly was deferred Extremities no cyanosis clubbing or edema, cap refill brisk Skin no rash Neuro no focal deficits. Data : 09/19/19 05:00 09/19/19 05:00 Micro: Microbiology 09/17/19 15:45 Stool Lactoferrin - Final Stool Enteric Pathogens (PCR) - Final Parasite Antigen Panel - Final Occult Blood (FIT) - Final A&P Assessment and plan (1) Pneumonia: Status: Acute (2) COVID-19: Status: Acute (3) GERD (gastroesophageal reflux disease): Continue Protonix Status: Chronic Qualifiers: Esophagitis presence: with esophagitis Qualified Code(s): K21.0 - Gastro-esophageal reflux disease with esophagitis (4) Hypertension: Continue home medications Status: Chronic Additional A&P Information COVID-19 pneumonia: On room air for last 24 hours. We will do Remdesevir for 3 days. Today will be day 3. Stop after today. Continue with Decadron. Continue with Advair, Spiriva, incentive spirometry. Continue with Tessalon Perles as needed, oral zinc, thiamine, vitamin C. Start patient on insulin sliding scale as he is on Decadron also start him on nystatin swish and swallow as required. Discussed in detail with the patient regarding need for prone positioning during rest and sleep. Inflammatory markers improving. We will continue following inflammatory markers like ferritin, ESR, CRP, d-dimer, LDH every day. Oxygen supplementation keeping saturation over 92%. Tylenol for fever. D-dimer is elevated. CTA PE negative for embolism. For now we will continue on full dose of Lovenox. Most likely will discharge patient on anticoagulation for next 1 week on discharge as patient with COVID-19 have been found to have high chances of thrombosis leading to pulmonary embolism. Follow-up sputum culture. Legionella negative. Looking at the blood work, clinical picture is chances of patient having a bacterial pneumonia are low. Sputum culture results awaited. Hypertension: Continue home medication of lisinopril and amlodipine. Goal blood pressure less than 140/90 mmHg with mean artery pressure over 65 mmHg. GERD/history of gastritis on endoscopy: Continue with Protonix 40 mg IV twice daily. Full code Cardiac carb consistent diet. Ambulate out of bed to chair. Patient's family including his and patient have been explained in detail regarding the disease process and the medications required. It is also discussed in detail that in case if he is requiring more oxygen supplementation for mechanical ventilation at that point we might have to transfer him to a higher tertiary center for other modes of treatment like pruning while on mechanical ventilation for plasma therapy. Attestations Medical Necessity Statement*: COVID-19 pneumonia Critical Care Time: Critical Care Time (min): 80 Coding Level of Care Code Acute Conventions Assistant for [facility] Diagnoses Pneumonia J18.9 COVID-19 U07.1 GERD (gastroesophageal reflux disease) K21.0 Esophagitis presence: with esophagitis Hypertension I10
[2019-09-19 16:04] LABS: Glucose Point of Care 201 mg/dL (70-110)
--- NOTE | 2019-09-19 17:08 | PC.NURSE ---
shift summary pt has been on room air this shift with sats in 92% and up. states he is feeling better. pt has had more of an appetite today he has had very good I&O's. c/o headache Tylenol given.
[2019-09-19] MEDS: acetaminophen 325 mg Tablet 650 MG PO (17:11)
[2019-09-19] MEDS: HYDROcodone-acetaminophen 5-325 mg Tablet 1 TAB PO (20:59)
[2019-09-19 21:01] LABS: Glucose Point of Care 237 mg/dL (70-110)
--- NOTE | 2019-09-19 22:25 | PC.NURSE ---
patient refused advair breathing treatment at 2220.
[2019-09-20] VITALS (18 sets, daily range): BP systolic 122–152; BP diastolic 67–94; PULSE 56–77; RESP 12–24; TEMP 36.6–37.4; O2SAT 93–97
[2019-09-20] MEDS: acetaminophen 325 mg Tablet 650 MG PO ×2 (04:14→17:44)
[2019-09-20 04:22] LABS: Basophils % 0.1 %; Hematocrit 41.7 % (42.0-52.0); Hemoglobin 14.1 g/dL (11.7-16.6); Lymphocytes # 0.9 10^3/uL (0.8-4.8); Lymphocytes % 10.5 %; Mean Corpuscular HGB Conc 33.8 g/dL (30.0-36.0); Mean Corpuscular Volume 91.6 fL (80-94); Mean Platelet Volume 10.9 fL (7.4-10.4); Monocytes # 0.6 10^3/uL (0.2-0.9); Monocytes % 7.5 %; Neutrophils # 6.55 10^3/uL (1.8-7.7); Neutrophils % 80.7 %; Nucleated Red Blood Cells % 0 %; Platelet Count 163 10^3/cmm (130-400); Red Blood Count 4.55 10^6/uL (4.1-5.3); Red Cell Distribution Width 12.9 % (12.1-15.1); White Blood Count 8.1 10^3/uL (4.0-10.0)
[2019-09-20] MEDS: enoxaparin 120 mg/0.8 mL Syringe SUBCUT ×2 (04:39→17:43)
[2019-09-20 04:50] LABS: Fibrinogen 322 mg/dL (174-498)
[2019-09-20 04:52] LABS: D Dimer 0.42 ug/mIFEU (0-0.59)
[2019-09-20 05:24] LABS: Slide Review Slide Review Perform
[2019-09-20 05:48] LABS: Erythrocyte Sedimentation Rate 10 mm/hr (0-10)
[2019-09-20 08:08] LABS: Glucose Point of Care 150 mg/dL (70-110)
[2019-09-20] MEDS: aspirin 81 mg EC Tablet PO (08:59)
[2019-09-20] MEDS: lisinopril 20 mg Tablet PO (08:59)
[2019-09-20] MEDS: dexamethasone 10 mg/mL INJ 5 MG IVP (08:59)
[2019-09-20] MEDS: amlodipine 10 mg Tablet PO (09:04)
[2019-09-20] MEDS: ascorbic acid 500 mg Tablet PO ×2 (09:04→17:43)
[2019-09-20] MEDS: thiamine 100 mg Tablet PO (09:05)
[2019-09-20] MEDS: pantoprazole DR 40 mg Tablet PO ×2 (09:05→17:43)
[2019-09-20] MEDS: zinc gluconate 50 mg Tablet PO (09:06)
[2019-09-20 10:21] LABS: Alanine Aminotransferase 36 U/L (0-41); Albumin Level 3.7 g/dL (3.5-5.2); Alkaline Phosphatase 55 IU/L (40-130); Aspartate Amino Transferase 24 U/L (0-40); Blood Urea Nitrogen 20 mg/dL (6-20); C Reactive Protein 3.3 mg/L (0.0-4.9); Calcium 8.4 mg/dL (8.5-10.5); Carbon Dioxide 21 mmol/L (22-29); Chloride 105 mmol/L (98-107); Ferritin 866 ng/mL (30-400); Globulin 2.9 g/dL (1.3-4.6); Glomerular Filtration Rate 98.9 mL/min (90-130); Glucose 208 mg/dL (65-115); Lactate Dehydrogenase 216 U/L (135-225); Osmolality Calculated 287 mOsm/kg (285-295); Sodium 137 mmol/L (136-145); Total Bilirubin 0.3 mg/dL (0.15-1.2); Total Protein 6.6 g/dL (6.6-8.7)
[2019-09-20] MEDS: TRAMadol 50 mg Tablet PO ×2 (10:46→21:37)
[2019-09-20 11:20] LABS: Glucose Point of Care 239 mg/dL (70-110)
--- NOTE | 2019-09-20 13:15 | PM.PN ---
Subjective Subjective: Interval history: Assuming care of the patient today, chart reviewed, resting quietly in bed, persistent dry cough with what sounds like associated pleurisy particularly on the right. Reports poor sleep which he attributes to steroids and cough, has been trying to get up and go to and from the bathroom though fatigues easily. Currently on room air and saturating at 95%. Completed Remdesevir yesterday x 3 days. Inflammatory markers trending down with normalization of ESR and CRP, except for ferritin which has trended up from 632->866 . No leukocytosis, normal hemoglobin, normal electrolytes and and renal function. Medications: Reviewed: Yes Medication Review Details: Active Medications Generic Name Dose Route Start Last Admin Trade Name Freq PRN Reason Stop Dose Admin Acetaminophen 650 mg 09/16/19 22:34 09/20/19 04:14 Tylenol PO 650 mg Q6H PRN Administration Mild/Mod Pain Or Temp >/= 101 Amlodipine Besylat e 10 mg 09/17/19 09:00 09/20/19 09:04 Norvasc PO 10 mg DAILY MEGHNA Administration Ascorbic Acid 500 mg 09/17/19 18:00 09/20/19 09:04 Vitamin C PO 500 mg BID MEGHNA Administration Aspirin 81 mg 09/17/19 09:00 09/20/19 08:59 Aspirin Ec PO 81 mg DAILY MEGHNA Administration Benzonatate 100 mg 09/17/19 10:38 09/19/19 08:56 Tessalon Pearls PO 100 mg TID PRN Administration COUGH Dexamethasone 5 mg 09/18/19 09:00 09/20/19 08:59 Decadron IVP 5 mg DAILY MEGHNA Administration Dextrose 25 ml 09/17/19 10:38 D50w IVP ONCE PRN hypoglycemia prot ocol Protocol Dextrose 50 ml 09/17/19 10:38 D50w IVP PRN PRN hypoglycemia prot ocol Protocol Enoxaparin Sodium 120 mg 09/17/19 16:00 09/20/19 04:39 Lovenox SUBCUT 120 mg Q12H MEGHNA Administration Glucagon 1 mg 09/17/19 10:38 Glucagen IM ONCE PRN Adult Acute Hypog lycemia Prot. Protocol Dextrose 500 mls @ 100 mls /hr 09/17/19 10:38 D5w IV ONCE PRN Adult Acute Hypog lycemia Prot Protocol Insulin Aspart 0 unit 09/17/19 12:00 09/20/19 12:12 Novolog SUBCUT 6 unit WM&BEDTIME MEGHNA Administration Protocol Lisinopril 20 mg 09/17/19 09:00 09/20/19 08:59 Prinivil PO 20 mg DAILY MEGHNA Administration Nystatin 100,000 unit 09/17/19 10:38 Nystatin PO QID PRN dyspahgia Ondansetron HCl 4 mg 09/16/19 22:34 Zofran IVP Q6H PRN vomiting, or N/V if npo Pantoprazole Sodiu m 40 mg 09/17/19 18:00 09/20/19 09:05 Protonix PO 40 mg BID MEGHNA Administration Fluticasone/Salmet isael 1 puff 09/17/19 20:00 09/19/19 22:25 Advair Diskus 50 0-50 INHALATION Not Given BID.RESPIRATORY S CH Thiamine Mononitra te 100 mg 09/18/19 09:00 09/20/19 09:05 Vitamin B-1 PO 100 mg DAILY MEGHNA Administration Tiotropium [place] 18 mcg 09/18/19 08:00 09/19/19 09:42 Spiriva INHALATION 1 puff DAILY.RESPIRATORY MEGHNA Administration Tramadol HCl 50 mg 09/17/19 19:11 09/20/19 10:46 Ultram PO 50 mg Q8H PRN Administration MODERATE PAIN Zinc Gluconate 50 mg 09/18/19 09:00 09/20/19 09:06 Zinc Gluconate PO 50 mg DAILY MEGHNA Administration meloxicam [From Mobic] Allergy (Mild, Verified 03/05/19 13:57) ulcers Vitals/I&O/Wt Last Vital Signs Temp 98.0 F 09/20/19 11:39 Pulse 67 09/20/19 11:39 Resp 18 09/20/19 11:39 BP 148/79 09/20/19 11:39 Pulse Ox 95 09/20/19 11:39 09/19/19 09/20/19 09/20/19 22:59 06:59 14:59 Intake Total 600 / 1560 Output Total 500 / 950 300 / 300 Balance 100 / 610 -300 / -300 Physical Exam Const: COMMON NORMALS: no acute distress and patient oriented x3 GENERAL APPEARANCE: cooperative and comfortable NUTRITIONAL APPEARANCE: obese morbidly obese ORIENTATION/CONSCIOUSNESS: Yes awake OTHER: -Appears fatigued, somewhat flushed HENMT: COMMON NORMALS: normocephalic, atraumatic, hearing grossly normal bilaterally and moist oral mucous membranes HEAD & SCALP: normocephalic and atraumatic Eye: COMMON NORMALS: Equal, round and reactive pupils present, EOMs intact bilaterally and conjunctivae normal CONJUNCTIVA: Yes conjunctivae normal PUPIL: Yes Equal, round and reactive pupils present Neck/C-Spine: COMMON NORMALS: full ROM GENERAL: Yes normal visual inspection and Yes trachea midline Resp: COMMON NORMALS: normal respiratory effort, No retractions, No use of accessory muscles and clear to auscultation bilaterally EFFORT & INSPECTION: Yes able to speak in complete sentences, Yes symmetric chest movement and No tachypneic AUSCULTATION: clear to auscultation bilaterally and crackles (minimal in bilateral bases) OTHER: -on RA, somewhat decreased breath sounds on the right, pleurisy on R Cardio: COMMON NORMALS: regular rate, regular rhythm, S1 normal heart sound present, S2 normal heart sound present and No murmurs present (Cardio) RATE: regular rate RHYTHM: regular rhythm HEART SOUNDS: S1 normal heart sound present and S2 normal heart sound present GI: COMMON NORMALS: Normal to inspection, nondistended, normoactive bowel sounds present, Soft to palpation and non-tender INSPECTION: Yes central obesity PALPATION: Yes Soft to palpation Extremity: COMMON NORMALS: normal to inspection, full ROM and no clubbing, cyanosis or edema; negative for no pedal edema Neuro: COMMON NORMALS: patient oriented x3, moves all extremities, no focal motor deficits and no sensory deficits noted Psych: COMMON NORMALS: mental status grossly normal, Normal thought process present, cooperative, normal affect and speech normal SPEECH: Yes normal speech THOUGHT PROCESS: Normal thought process present Skin: COMMON NORMALS: no rashes or lesions noted, no jaundice, no petechiae and no mottling GENERAL SKIN EXAM: no rashes or lesions noted Data : 09/20/19 04:00 09/20/19 09:24 Micro: Microbiology 09/17/19 15:45 Stool Lactoferrin - Final Stool Enteric Pathogens (PCR) - Final Parasite Antigen Panel - Final Occult Blood (FIT) - Final A&P Assessment and plan (1) COVID-19: -Tested elsewhere, test came back positive; 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 -completed 3-day course of Remdesevir -currently on RA and maintaining saturation appropriately; continue to monitor respiratory status closely, supplemental oxygen as needed -Inflammatory markers overall trending down, normalization of ESR and CRP, noted trend upward in ferritin from 632->866 today -Chest x-ray and CT chest reviewed with noted evidence of pneumonia -Resolved leukocytosis, afebrile x > 24 hrs -Continue Advair, Spiriva, IS, antitussives as needed, zinc, thiamine, vitamin C -On IV steroids -Nystatin solution PRN -D-dimer elevated, negative PE on CTA; on therapeutic dose of Lovenox due to associated thrombosis with COVID-19 infections Status: Acute (2) Pneumonia: -as noted above -associated pleurisy -blood cx: negative -Legionella negative -stool studies negative, FOBT + Status: Acute Qualifiers: Pneumonia type: due to unspecified organism Laterality: unspecified laterality Lung location: unspecified part of lung Qualified Code(s): J18.9 - Pneumonia, unspecified organism (3) GERD (gastroesophageal reflux disease): -on PPI -noted gastritis on endoscopy Status: Chronic Qualifiers: Esophagitis presence: with esophagitis Qualified Code(s): K21.0 - Gastro-esophageal reflux disease with esophagitis (4) Hypertension: -Vital signs stable, continue to monitor -continue oral antihypertensives (Amlodipine, Lisinopril) Status: Chronic Qualifiers: Hypertension type: essential hypertension Qualified Code(s): I10 - Essential (primary) hypertension (5) Chronic low back pain: -pain control as needed Status: Chronic Qualifiers: Back pain laterality: unspecified Sciatica presence: unspecified whether sciatica present Qualified Code(s): M54.5 - Low back pain; G89.29 - Other chronic pain Additional A&P Information -Morbid obesity: BMI-38 kg/m2 -Hyperglycemia, no dx of DM, likely steroid induced, Accucheks, ISS -consistent carb diet as tolerated -GI ppx with PPI -DVT ppx not needed as on therapeutic Lovenox -Dispo: home -Code status: FULL code Attestations Medical Necessity Statement*: Patient requires hospitalization for continued management of COVID-19 infection requiring continued IV steroids, close monitoring of respiratory status. Time Spent in Patient Care: Greater than 35 minutes (>than 50% of time spent in counselling and/or direct pt care on unit). Coding Level of Care Code Acute Solid Waste Facility Operator for Chg Fwd Diagnoses COVID-19 U07.1 Pneumonia J18.9 Pneumonia type: due to unspecified organism Laterality: unspecified laterality Lung location: unspecified part of lung GERD (gastroesophageal reflux disease) K21.0 Esophagitis presence: with esophagitis Hypertension I10 Hypertension type: essential hypertension Chronic low back pain M54.5; G89.29 Back pain laterality: unspecified Sciatica presence: unspecified whether sciatica present
--- NOTE | 2019-09-20 16:23 | P.PN_ITS ---
Subjective Medications: Reviewed: Yes Medication Review Details: Active Medications Generic Name Dose Route Start Last Admin Trade Name Freq PRN Reason Stop Dose Admin Acetaminophen 650 mg 09/16/19 22:34 09/20/19 04:14 Tylenol PO 650 mg Q6H PRN Administration Mild/Mod Pain Or Temp >/= 101 Amlodipine Besylat e 10 mg 09/17/19 09:00 09/20/19 09:04 Norvasc PO 10 mg DAILY MEGHNA Administration Ascorbic Acid 500 mg 09/17/19 18:00 09/20/19 09:04 Vitamin C PO 500 mg BID MEGHNA Administration Aspirin 81 mg 09/17/19 09:00 09/20/19 08:59 Aspirin Ec PO 81 mg DAILY MEGHNA Administration Benzonatate 100 mg 09/17/19 10:38 09/19/19 08:56 Tessalon Pearls PO 100 mg TID PRN Administration COUGH Dexamethasone 5 mg 09/18/19 09:00 09/20/19 08:59 Decadron IVP 5 mg DAILY MEGHNA Administration Dextrose 25 ml 09/17/19 10:38 D50w IVP ONCE PRN hypoglycemia prot ocol Protocol Dextrose 50 ml 09/17/19 10:38 D50w IVP PRN PRN hypoglycemia prot ocol Protocol Enoxaparin Sodium 120 mg 09/17/19 16:00 09/20/19 04:39 Lovenox SUBCUT 120 mg Q12H MEGHNA Administration Glucagon 1 mg 09/17/19 10:38 Glucagen IM ONCE PRN Adult Acute Hypog lycemia Prot. Protocol Dextrose 500 mls @ 100 mls /hr 09/17/19 10:38 D5w IV ONCE PRN Adult Acute Hypog lycemia Prot Protocol Insulin Aspart 0 unit 09/17/19 12:00 09/20/19 12:12 Novolog SUBCUT 6 unit WM&BEDTIME MEGHNA Administration Protocol Lisinopril 20 mg 09/17/19 09:00 09/20/19 08:59 Prinivil PO 20 mg DAILY MEGHNA Administration Nystatin 100,000 unit 09/17/19 10:38 Nystatin PO QID PRN dyspahgia Ondansetron HCl 4 mg 09/16/19 22:34 Zofran IVP Q6H PRN vomiting, or N/V if npo Pantoprazole Sodiu m 40 mg 09/17/19 18:00 09/20/19 09:05 Protonix PO 40 mg BID MEGHNA Administration Fluticasone/Salmet isael 1 puff 09/17/19 20:00 09/19/19 22:25 Advair Diskus 50 0-50 INHALATION Not Given BID.RESPIRATORY S CH Thiamine Mononitra te 100 mg 09/18/19 09:00 09/20/19 09:05 Vitamin B-1 PO 100 mg DAILY MEGHNA Administration Tiotropium [place] 18 mcg 09/18/19 08:00 09/19/19 09:42 Spiriva INHALATION 1 puff DAILY.RESPIRATORY MEGHNA Administration Tramadol HCl 50 mg 09/17/19 19:11 09/20/19 10:46 Ultram PO 50 mg Q8H PRN Administration MODERATE PAIN Zinc Gluconate 50 mg 09/18/19 09:00 09/20/19 09:06 Zinc Gluconate PO 50 mg DAILY MEGHNA Administration meloxicam [From [address] Allergy (Mild, Verified 03/05/19 13:57) ulcers Vitals/I&O/Wt Last Vital Signs Temp 98.0 F 09/20/19 11:39 Pulse 67 09/20/19 11:39 Resp 18 09/20/19 11:39 BP 148/79 09/20/19 11:39 Pulse Ox 95 09/20/19 11:39 09/20/19 09/20/19 09/20/19 06:59 14:59 22:59 Intake Total 440 / 440 Output Total 300 / 300 700 / 1000 Balance 140 / 140 -700 / -560 Data : 09/20/19 04:00 09/20/19 09:24 Micro: Microbiology 09/17/19 15:45 Stool Lactoferrin - Final Stool Enteric Pathogens (PCR) - Final Parasite Antigen Panel - Final Occult Blood (FIT) - Final Coding Level of Care Code Acute Sql Bi Developer for Adriáng Antonio
[2019-09-20 17:42] LABS: Glucose Point of Care 253 mg/dL (70-110)
[2019-09-20] MEDS: benzonatate 100 mg Capsule PO (18:28)
[2019-09-20 20:29] LABS: Glucose Point of Care 258 mg/dL (70-110)
[2019-09-21] VITALS (14 sets, daily range): BP systolic 127–167; BP diastolic 67–98; PULSE 57–85; RESP 14–25; TEMP 36.6–36.8; O2SAT 92–95
[2019-09-21] MEDS: enoxaparin 120 mg/0.8 mL Syringe SUBCUT ×2 (05:21→15:00)
[2019-09-21 07:11] LABS: Basophils % 0.4 %; Hematocrit 41.9 % (42.0-52.0); Hemoglobin 14.2 g/dL (11.7-16.6); Lymphocytes # 1.2 10^3/uL (0.8-4.8); Lymphocytes % 12.5 %; Mean Corpuscular HGB Conc 33.9 g/dL (30.0-36.0); Mean Corpuscular Hemoglobin 30.9 pg (28.0-34.0); Mean Corpuscular Volume 91.3 fL (80-94); Mean Platelet Volume 9.9 fL (7.4-10.4); Monocytes # 0.7 10^3/uL (0.2-0.9); Monocytes % 7.5 %; Neutrophils # 7.44 10^3/uL (1.8-7.7); Neutrophils % 75.7 %; Nucleated Red Blood Cells % 0 %; Platelet Count 347 10^3/cmm (130-400); Red Blood Count 4.59 10^6/uL (4.1-5.3); Red Cell Distribution Width 12.8 % (12.1-15.1); White Blood Count 9.8 10^3/uL (4.0-10.0)
[2019-09-21 07:18] LABS: Glucose Point of Care 125 mg/dL (70-110)
[2019-09-21 07:27] LABS: Fibrinogen 338 mg/dL (174-498)
[2019-09-21 07:29] LABS: D Dimer <= 0.27 ug/mIFEU (0-0.59)
[2019-09-21 07:36] LABS: Blood Urea Nitrogen 21 mg/dL (6-20); Calcium 8.6 mg/dL (8.5-10.5); Carbon Dioxide 23 mmol/L (22-29); Chloride 103 mmol/L (98-107); Glomerular Filtration Rate 115.4 mL/min (90-130); Glucose 151 mg/dL (65-115); Osmolality Calculated 286 mOsm/kg (285-295); Sodium 138 mmol/L (136-145)
[2019-09-21 07:37] LABS: Ferritin 854 ng/mL (30-400); Lactate Dehydrogenase 205 U/L (135-225)
[2019-09-21] MEDS: amlodipine 10 mg Tablet PO (08:13)
[2019-09-21] MEDS: thiamine 100 mg Tablet PO (08:13)
[2019-09-21] MEDS: aspirin 81 mg EC Tablet PO (08:13)
[2019-09-21] MEDS: pantoprazole DR 40 mg Tablet PO ×2 (08:14→14:48)
[2019-09-21] MEDS: TRAMadol 50 mg Tablet PO ×2 (08:14→20:29)
[2019-09-21] MEDS: lisinopril 20 mg Tablet PO (08:14)
[2019-09-21] MEDS: ascorbic acid 500 mg Tablet PO ×2 (08:14→14:46)
[2019-09-21] MEDS: dexamethasone 10 mg/mL INJ 5 MG IVP (08:15)
[2019-09-21 08:18] LABS: Erythrocyte Sedimentation Rate 9 mm/hr (0-10)
--- NOTE | 2019-09-21 08:20 | PC.NURSE ---
patient took his advair and spiriva and then perfomed oral care. we discussed covid and how long it may last on surfaces. 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 discussed how he might be able to self isolate in the home but would not be able to share a bed with anyone, and must santizie his bathroom after each use wiping surfaces he touched. his would have to bring him food in his room and where a mask and gloves at minimum when she brought the food. he is thinking about this effect on family.
--- NOTE | 2019-09-21 08:50 | P.PN_ITS ---
Subjective Subjective: Interval history: Remains on RA, hemodynamically stable, inflammatory markers wnl except for ferritin though this is trending down. Had 1200 mL urine output overnight. Repeat chest x-ray ordered today. Overall looks better and reports feeling a little better today, able to ambulate to and from the bathroom a little bit easier though continues to fatigue easily. Dry cough persists. Able to get some sleep overnight so feels a little more rested today. Continues to complain of a right-sided headache and reports being prone to migraine headaches, usually takes tramadol for this. Medications: Reviewed: Yes Medication Review Details: Active Medications Generic Name Dose Route Start Last Admin Trade Name Freq PRN Reason Stop Dose Admin Acetaminophen 650 mg 09/16/19 22:34 09/20/19 17:44 Tylenol PO 650 mg Q6H PRN Administration Mild/Mod Pain Or Temp >/= 101 Amlodipine Besylat e 10 mg 09/17/19 09:00 09/21/19 08:13 Norvasc PO 10 mg DAILY MEHGNA Administration Ascorbic Acid 500 mg 09/17/19 18:00 09/21/19 08:14 Vitamin C PO 500 mg BID MEGHNA Administration Aspirin 81 mg 09/17/19 09:00 09/21/19 08:13 Aspirin Ec PO 81 mg DAILY MEGHNA Administration Benzonatate 100 mg 09/17/19 10:38 09/20/19 18:28 Tessalon Pearls PO 100 mg TID PRN Administration COUGH Dexamethasone 5 mg 09/18/19 09:00 09/21/19 08:15 Decadron IVP 5 mg DAILY MEGHNA Administration Dextrose 25 ml 09/17/19 10:38 D50w IVP ONCE PRN hypoglycemia prot ocol Protocol Dextrose 50 ml 09/17/19 10:38 D50w IVP PRN PRN hypoglycemia prot ocol Protocol Enoxaparin Sodium 120 mg 09/17/19 16:00 09/21/19 05:21 Lovenox SUBCUT 120 mg Q12H MEGHNA Administration Glucagon 1 mg 09/17/19 10:38 Glucagen IM ONCE PRN Adult Acute Hypog lycemia Prot. Protocol Dextrose 500 mls @ 100 mls /hr 09/17/19 10:38 D5w IV ONCE PRN Adult Acute Hypog lycemia Prot Protocol Insulin Aspart 0 unit 09/17/19 12:00 09/21/19 07:19 Novolog SUBCUT Not Given WM&BEDTIME MEGHNA Protocol Lisinopril 20 mg 09/17/19 09:00 09/21/19 08:14 Prinivil PO 20 mg DAILY MEGHNA Administration Nystatin 100,000 unit 09/17/19 10:38 Nystatin PO QID PRN dyspahgia Ondansetron HCl 4 mg 09/16/19 22:34 Zofran IVP Q6H PRN vomiting, or N/V if npo Pantoprazole Sodiu m 40 mg 09/17/19 18:00 09/21/19 08:14 Protonix PO 40 mg BID MEGHNA Administration Fluticasone/Salmet isael 1 puff 09/17/19 20:00 09/20/19 18:30 Advair Diskus 50 0-50 INHALATION 1 puff BID.RESPIRATORY S CH Administration Thiamine Mononitra te 100 mg 09/18/19 09:00 09/21/19 08:13 Vitamin B-1 PO 100 mg DAILY MEGHNA Administration Tiotropium [place] 18 mcg 09/18/19 08:00 09/19/19 09:42 Spiriva INHALATION 1 puff DAILY.RESPIRATORY MEGHNA Administration Tramadol HCl 50 mg 09/17/19 19:11 09/21/19 08:14 Ultram PO 50 mg Q8H PRN Administration MODERATE PAIN Zinc Gluconate 50 mg 09/18/19 09:00 09/20/19 09:06 Zinc Gluconate PO 50 mg DAILY MEGHNA Administration Zolpidem Tartrate 10 mg 09/20/19 20:23 09/20/19 21:38 Ambien PO 10 mg BEDTIME PRN Administration INSOMNIA meloxicam [From Mobic] Allergy (Mild, Verified 03/05/19 13:57) ulcers Vitals/I&O/Wt Last Vital Signs Temp 97.8 F 09/21/19 07:19 Pulse 64 09/21/19 07:19 Resp 20 H 09/21/19 07:19 BP 148/98 09/21/19 07:19 Pulse Ox 93 09/21/19 07:19 09/20/19 09/21/19 09/21/19 22:59 06:59 14:59 Intake Total 240 / 680 250 / 250 Output Total 1100 / 1400 800 / 2200 400 / 400 Balance -860 / -720 -800 / -1520 -150 / -150 Physical Exam Const: COMMON NORMALS: no acute distress and patient oriented x3 GENERAL APPEARANCE: cooperative and comfortable NUTRITIONAL APPEARANCE: obese morbidly obese ORIENTATION/CONSCIOUSNESS: Yes awake OTHER: -Overall looks better today HENMT: COMMON NORMALS: normocephalic, atraumatic, hearing grossly normal bilaterally and moist oral mucous membranes HEAD & SCALP: normocephalic and atraumatic Eye: COMMON NORMALS: Equal, round and reactive pupils present, EOMs intact bilaterally and conjunctivae normal CONJUNCTIVA: Yes conjunctivae normal PUPIL: Yes Equal, round and reactive pupils present Neck/C-Spine: COMMON NORMALS: full ROM GENERAL: Yes normal visual in spection and Yes trachea midline Resp: COMMON NORMALS: normal respiratory effort, No retractions, No use of accessory muscles and clear to auscultation bilaterally EFFORT & INSPECTION: Yes able to speak in complete sentences, Yes symmetric chest movement and No tachypneic AUSCULTATION: clear to auscultation bilaterally and crackles (minimal in bilateral bases) Cardio: COMMON NORMALS: regular rate, regular rhythm, S1 normal heart sound present, S2 normal heart sound present and No murmurs present (Cardio) RATE: regular rate RHYTHM: regular rhythm HEART SOUNDS: S1 normal heart sound present and S2 normal heart sound present GI: COMMON NORMALS: Normal to inspection, nondistended, normoactive bowel kay nds present, Soft to palpation and non-tender INSPECTION: Yes central obesity PALPATION: Yes Soft to palpation Extremity: COMMON NORMALS: normal to inspection, full ROM and no clubbing, cyanosis or edema; negative for no pedal edema Neuro: COMMON NORMALS: patient oriented x3, moves all extremities, no focal motor deficits and no sensory deficits noted Psych: COMMON NORMALS: mental status grossly normal, Normal thought process present, cooperative, normal affect and speech normal SPEECH: Yes normal speech THOUGHT PROCESS: Normal thought process present Skin: COMMON NORMALS: no rashes or lesions noted, no jaundice, no petechiae and no mottling GENERAL SKIN EXAM: no rashes or lesions noted Data : 09/21/19 06:00 09/21/19 06:00 A&P Assessment and plan (1) COVID-19: -Tested elsewhere, test came back positive; 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 Order CXR to monitor progression -Resolved leukocytosis, afebrile x > 24 hrs -Continue Advair, Spiriva, IS, antitussives as needed, zinc, thiamine, vitamin C -On IV steroids; if clinical improvement and CXR stable/improved, may consider switch to PO steroids -Nystatin solution PRN -D-dimer elevated, negative PE on CTA; on therapeutic dose of Lovenox due to associated thrombosis with COVID-19 infections Status: Acute (2) Pneumonia: -as noted above -associated pleurisy -blood cx: negative -Legionella negative -stool studies negative, FOBT + -CXR today to monitor progression Status: Acute Qualifiers: Laterality: unspecified laterality Lung location: unspecified part of lung Pneumonia type: due to unspecified organism Qualified Code(s): J18.9 - Pneumonia, unspecified organism (3) GERD (gastroesophageal reflux disease): -on PPI -noted gastritis on endoscopy Status: Chronic Qualifiers: Esophagitis presence: with esophagitis Qualified Code(s): K21.0 - Gastro-esophageal reflux disease with esophagitis (4) Hypertension: -Vital signs stable, continue to monitor; anticipate some hypertension with steroid use -continue oral antihypertensives (Amlodipine, Lisinopril) Status: Chronic Qualifiers: Hypertension type: essential hypertension Qualified Code(s): I10 - Essential (primary) hypertension (5) Chronic low back pain: -pain control as needed Status: Chronic Qualifiers: Back pain laterality: unspecified Sciatica presence: unspecified whether sciatica present Qualified Code(s): M54.5 - Low back pain; G89.29 - Other chronic pain Additional A&P Information -Morbid obesity: BMI-38 kg/m2 -Hyperglycemia, no dx of DM, likely steroid induced, Accucheks, ISS -Insomnia, likely due to steroids, Ambien PRN -consistent carb diet as tolerated -GI ppx with PPI -DVT ppx not needed as on therapeutic Lovenox -Dispo: home -Code status: FULL code Attestations Medical Necessity Statement*: Patient requires hospitalization for continued management of COVID-19 infection including continued close monitoring of respiratory status, on IV steroids. Time Spent in Patient Care: Greater than 35 minutes (>than 50% of time spent in counselling and/or direct pt care on unit) . Coding Level of Care Code Acute Director Of Market Research for Chg Fwd Exam Comprehensive Diagnoses COVID-19 U07.1 Pneumonia J18.9 Laterality: unspecified laterality Lung location: unspecified part of lung Pneumonia type: due to unspecified organism GERD (gastroesophageal reflux disease) K21.0 Esophagitis presence: with esophagitis Hypertension I10 Hypertension type: essential hypertension Chronic low back pain M54.5; G89.29 Back pain laterality: unspecified Sciatica presence: unspecified whether sciatica present
--- NOTE | 2019-09-21 08:52 | XR_ITS ---
WS: [id number] CHEST XRAY TECHNIQUE: Portable chest. CLINICAL INFORMATION: COVID + COMPARISON: September 16, 2019 FINDINGS: Heart: Normal cardiac silhouette. Lungs: Lungs are clear. No consolidation or pleural effusion. No acute infiltrates. Bones: Normal visualized bony structures. XR/XR chest 1V portable [id number] IMPRESSION: Normal chest
[2019-09-21] MEDS: zinc gluconate 50 mg Tablet PO (09:16)
[2019-09-21 11:31] LABS: Glucose Point of Care 303 mg/dL (70-110)
[2019-09-21] MEDS: SUMAtriptan 25 mg Tablet PO (11:41)
--- NOTE | 2019-09-21 13:07 | PC.NURSE ---
COVID TEST PERFORMED AND PICKED UP. PATIENT ATE AND STATED HIS MEAL LOOKED BETTER. THE DIETARY OFFICE WAS CALLED 2X TO GIVE US A MENU FOR HIM TO CHOOSE HIS MEALS
--- NOTE | 2019-09-21 13:43 | PC.NURSE ---
patient complains of hick ups , dr hima camacho aware.
[2019-09-21] MEDS: baclofen 10 mg Tablet PO ×2 (15:02→20:29)
[2019-09-21 15:28] LABS: Glucose Point of Care 231 mg/dL (70-110)
--- NOTE | 2019-09-21 16:45 | PC.NURSE ---
patients hiccups have diminished at times but are still present. he denies pain. the cafeteria was called to ask why they are not been . calling or giving him a menu to choose from for his meals. they sent us a menu. we asked for pudding several hours ago for the patient to take his pills with. after an hour i had to call the house painting instructor for it. they did send soup cans later but no pudding. we have no microwave in here so i am unsure why they sent it. the patient wanted beef vegetable soup but that was not amongst the soups that we could not warm anyway. nutritional services called but there was no answer.
[2019-09-21] MEDS: acetaminophen 325 mg Tablet 650 MG PO (17:39)
[2019-09-21] MEDS: benzonatate 100 mg Capsule PO (18:17)
[2019-09-21 20:17] LABS: Glucose Point of Care 313 mg/dL (70-110)
[2019-09-22] VITALS (15 sets, daily range): BP systolic 118–154; BP diastolic 71–105; PULSE 55–77; RESP 9–25; TEMP 36.2–36.8; O2SAT 91–96
[2019-09-22] MEDS: enoxaparin 120 mg/0.8 mL Syringe SUBCUT ×2 (04:45→15:06)
[2019-09-22 06:15] LABS: Ferritin 849 ng/mL (30-400)
--- NOTE | 2019-09-22 07:07 | PC.NURSE ---
PATIENT DOES NOT LIKE TO BE HELPED TO BATHROOM AND THUS FAR HE HAS NOT BEEN OBSERVED AMBULATING AND ON A PULSE OX TO SEE IF HE CAN MAINTAIN A GOOD SATURATION WHILE EXERTING HIMSELF.
[2019-09-22 07:09] LABS: Glucose Point of Care 152 mg/dL (70-110)
[2019-09-22 07:23] LABS: Erythrocyte Sedimentation Rate 7 mm/hr (0-10)
--- NOTE | 2019-09-22 07:38 | PC.NURSE ---
patient has had unusally high blood sugars , higher than expected for supposedly not being a diabetic. i do not see an a1c has been taken. the patient states he feels worse worse today in terms of aching and energy.
[2019-09-22] MEDS: TRAMadol 50 mg Tablet PO ×2 (08:42→22:44)
[2019-09-22] MEDS: predniSONE 20 mg Tablet 40 MG PO (08:42)
[2019-09-22] MEDS: baclofen 10 mg Tablet PO ×3 (08:45→20:25)
[2019-09-22] MEDS: pantoprazole DR 40 mg Tablet PO ×2 (08:45→15:07)
[2019-09-22] MEDS: ascorbic acid 500 mg Tablet PO ×2 (08:45→15:07)
[2019-09-22] MEDS: amlodipine 10 mg Tablet PO (08:46)
[2019-09-22] MEDS: lisinopril 20 mg Tablet PO (08:46)
[2019-09-22] MEDS: benzonatate 100 mg Capsule PO ×2 (08:47→15:08)
[2019-09-22] MEDS: thiamine 100 mg Tablet PO (08:47)
[2019-09-22] MEDS: aspirin 81 mg EC Tablet PO (08:48)
[2019-09-22] MEDS: zinc gluconate 50 mg Tablet PO (08:48)
--- NOTE | 2019-09-22 09:29 | PC.NURSE ---
patient got up to have a bm. his bed was changed, he bathed partially in the bed and partially at the sink. he was short of breath and dizzy for a few minutes after getting up but safely got through his washing .
--- NOTE | 2019-09-22 09:35 | P.PN_ITS ---
Subjective Subjective: Interval history: Had 1400 mL urine output overnight, hemodynamically stable, afebrile, remains on RA, ESR normal, ferritin continues to trend down. When I initially walked into the room he has a cold towel over his head due to right-sided headache. Intermittently continues to have hiccups. Was able to have some rest overnight, seems to sleep better when given tramadol and Ambien just before bedtime. Continues to express concern about returning home due to potential exposure to his , grandchildren and elderly parents. Reviewed precautions that will need to be in place on his transition back home. Also concerned about returning to work. Reassured him that he will need some time to completely recover from the infection. Repeat COVID test pending. Discussed with nursing staff. Medications: Reviewed: Yes Medication Review Details: Active Medications Generic Name Dose Route Start Last Admin Trade Name Freq PRN Reason Stop Dose Admin Acetaminophen 650 mg 09/16/19 22:34 09/21/19 17:39 Tylenol PO 650 mg Q6H PRN Administration Mild/Mod Pain Or Temp >/= 101 Amlodipine Besylat e 10 mg 09/17/19 09:00 09/22/19 08:46 Norvasc PO 10 mg DAILY MEGHNA Administration Ascorbic Acid 500 mg 09/17/19 18:00 09/22/19 08:45 Vitamin C PO 500 mg BID MEGHNA Administration Aspirin 81 mg 09/17/19 09:00 09/22/19 08:48 Aspirin Ec PO 81 mg DAILY MEGHNA Administration Baclofen 10 mg 09/21/19 15:00 09/22/19 08:45 Lioresal PO 10 mg TID MEGHNA Administration Benzonatate 100 mg 09/17/19 10:38 09/22/19 08:47 Tessalon Pearls PO 100 mg TID PRN Administration COUGH Dextrose 25 ml 09/17/19 10:38 D50w IVP ONCE PRN hypoglycemia prot ocol Protocol Dextrose 50 ml 09/17/19 10:38 D50w IVP PRN PRN hypoglycemia prot ocol Protocol Enoxaparin Sodium 120 mg 09/17/19 16:00 09/22/19 04:45 Lovenox SUBCUT 120 mg Q12H MEGHNA Administration Glucagon 1 mg 09/17/19 10:38 Glucagen IM ONCE PRN Adult Acute Hypog lycemia Prot. Protocol Dextrose 500 mls @ 100 mls /hr 09/17/19 10:38 D5w IV ONCE PRN Adult Acute Hypog lycemia Prot Protocol Insulin Aspart 0 unit 09/17/19 12:00 09/22/19 07:12 Novolog SUBCUT 2 unit WM&BEDTIME MEGHNA Administration Protocol Lisinopril 20 mg 09/17/19 09:00 09/22/19 08:46 Prinivil PO 20 mg DAILY MEGHNA Administration Nystatin 100,000 unit 09/17/19 10:38 Nystatin PO QID PRN dyspahgia Ondansetron HCl 4 mg 09/16/19 22:34 Zofran IVP Q6H PRN vomiting, or N/V if npo Pantoprazole Sodiu m 40 mg 09/17/19 18:00 09/22/19 08:45 Protonix PO 40 mg BID MEGHNA Administration Prednisone 40 mg 09/22/19 09:00 09/22/19 08:42 Prednisone PO 40 mg DAILY MEGHNA Administration Fluticasone/Salmet isael 1 puff 09/17/19 20:00 09/20/19 18:30 Advair Diskus 50 0-50 INHALATION 1 puff BID.RESPIRATORY S CH Administration Sumatriptan Succin ate 50 mg 09/21/19 18:48 Imitrex PO Q2H PRN MIGRAINE HEADACHE Thiamine Mononitra te 100 mg 09/18/19 09:00 09/22/19 08:47 Vitamin B-1 PO 100 mg DAILY MEGHNA Administration Tiotropium [place] 18 mcg 09/18/19 08:00 09/19/19 09:42 Spiriva INHALATION 1 puff DAILY.RESPIRATORY MEGHNA Administration Tramadol HCl 50 mg 09/17/19 19:11 09/22/19 08:42 Ultram PO 50 mg Q8H PRN Administration MODERATE PAIN Zinc Gluconate 50 mg 09/18/19 09:00 09/22/19 08:48 Zinc Gluconate PO 50 mg DAILY MEGHNA Administration Zolpidem Tartrate 10 mg 09/20/19 20:23 09/21/19 20:29 Ambien PO 10 mg BEDTIME PRN Administration INSOMNIA meloxicam [From Mobic] Allergy (Mild, Verified 03/05/19 13:57) ulcers Vitals/I&O/Wt Last Vital Signs Temp 97.6 F 09/22/19 07:00 Pulse 63 09/22/19 07:00 Resp 22 H 09/22/19 07:00 BP 143/94 09/22/19 07:00 Pulse Ox 94 09/22/19 07:00 09/21/19 09/22/19 09/22/19 22:59 06:59 14:59 Intake Total 300 / 850 300 / 300 Output Total 500 / 1200 1200 / 2400 Balance -200 / -350 -1200 / -1550 300 / 300 Physical Exam 2 Const: COMMON NORMALS: no acute distress and patient oriented x3 GENERAL APPEARANCE: cooperative and comfortable NUTRITIONAL APPEARANCE: obese morbidly obese ORIENTATION/CONSCIOUSNESS: Yes awake OTHER: -A little more fatigued today, face appears flushed HENMT: COMMON NORMALS: normocephalic, atraumatic, hearing grossly normal bilaterally and moist oral mucous membranes HEAD & SCALP: normocephalic and atraumatic Eye: COMMON NORMALS: Equal, round and reactive pupils present, EOMs intact bilaterally and conjunctivae normal CONJUNCTIVA: Yes conjunctivae normal PUPIL: Yes Equal, round and reactive pupils present Neck/C-Spine: COMMON NORMALS: full ROM GENERAL: Yes normal visual inspection and Yes trachea midline Resp: COMMON NORMALS: normal respiratory effort, No retractions, No use of accessory muscles and clear to auscultation bilaterally EFFORT & INSPECTION: Yes able to speak in complete sentences, Yes symmetric chest movement, Yes tachypneic (Mildly) and Yes Actively coughing non-productive AUSCULTATION: clear to auscultation bilaterally and crackles (minimal in bilateral bases) OTHER: -On room air Cardio: COMMON NORMALS: regular rate, regular rhythm, S1 normal heart sound present, S2 normal heart sound present and No murmurs present (Cardio) RATE: regular rate RHYTHM: regular rhythm HEART SOUNDS: S1 normal heart sound p resent and S2 normal heart sound present GI: COMMON NORMALS: Normal to inspection, nondistended, normoactive bowel sounds present, Soft to palpation and non-tender INSPECTION: Yes central obesity PALPATION: Yes Soft to palpation Extremity: COMMON NORMALS: normal to inspection, full ROM and no clubbing, cyanosis or edema; negative for no pedal edema Neuro: COMMON NORMALS: patient oriented x3, moves all extremities, no focal motor deficits and no sensory deficits noted Psych: COMMON NORMALS: mental status grossly normal, Normal thought process present, cooperative, normal affect and speech normal SPEECH: Yes normal speech THOUGHT PROCESS: Normal thought process present Skin: COMMON NORMALS: no rashes or lesions noted, no jaundice, no petechiae and no mottling GENERAL SKIN EXAM: no rashes or lesions noted Data : 09/21/19 06:00 09/21/19 06:00 Micro: Microbiology 09/16/19 19:52 Blood Culture - Final Blood NO GROWTH AFTER 5 DAYS 09/16/19 18:50 Blood Culture - Final Blood NO GROWTH AFTER 5 DAYS A&P Assessment and plan (1) COVID-19: -Tested elsewhere, test came back positive; 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 Order CXR to monitor progression -Resolved leukocytosis, afebrile x > 72 hrs -Continue Advair, Spiriva, IS, antitussives as needed, zinc, thiamine, vitamin C -Off IV steroids, switch to oral prednisone due to noted clinical and imaging improvement; will need taper on discharge -Nystatin solution PRN -D-dimer elevated, negative PE on CTA; on therapeutic dose of Lovenox due to associated thrombosis with COVID-19 infections -repeat test pending -Has a dry persistent cough -Sputum culture and Gram stain pending, sample sent today Status: Acute (2) Pneumonia: -as noted above -associated pleurisy; improving -blood cx: negative -Legionella negative -stool studies negative, FOBT + -CXR normalized Status: Acute Qualifiers: Laterality: unspecified laterality Lung location: unspecified part of lung Pneumonia type: due to unspecified organism Qualified Code(s): J18.9 - Pneumonia, unspecified organism (3) GERD (gastroesophageal reflux disease): -on PPI -noted gastritis on endoscopy Status: Chronic Qualifiers: Esophagitis presence: with esophagitis Qualified Code(s): K21.0 - Gastro-esophageal reflux disease with esophagitis (4) Hypertension: -Vital signs stable, continue to monitor; anticipate some hypertension with steroid use -continue oral antihypertensives (Amlodipine, Lisinopril) Status: Chronic Qualifiers: Hypertension type: essential hypertension Qualified Code(s): I10 - Essential (primary) hypertension (5) Chronic low back pain: -pain control as needed Status: Chronic Qualifiers: Back pain laterality: unspecified Sciatica presence: unspecified whether sciatica present Qualified Code(s): M54.5 - Low back pain; G89.29 - Other chronic pain Additional A&P Information -Morbid obesity: BMI-38 kg/m2 -Hyperglycemia, no dx of DM, likely steroid induced, Accucheks, ISS -Insomnia, likely due to steroids, Ambien PRN seems to be helping -consistent carb diet as tolerated -GI ppx with PPI -DVT ppx not needed as on therapeutic Lovenox -Dispo: home -Code status: FULL code -Updated Linda Capone today over the phone. If continued improvement anticipate possible discharge tomorrow. Have discussed on previous occasions isolation precautions that will need to be in place, need for continued quarantine, sanitizing of shared surfaces/areas, need to continue to monitor vital signs particularly blood pressure, oxygen saturation, heart rate and temperature, wearing a mask and gloves when in close contact, continued good hand hygiene Attestations Medical Necessity Statement*: Patient requires hospitalization for continued supportive care due to COVID-19 infection. Time Spent in Patient Care: 16 - 35 minutes (>than 50% of time spent in counselling and/or direct pt care on unit) . 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
[2019-09-22] MEDS: SUMAtriptan 25 mg Tablet 50 MG PO ×3 (10:20→20:24)
[2019-09-22 11:19] LABS: Glucose Point of Care 181 mg/dL (70-110)
[2019-09-22] MEDS: acetaminophen 325 mg Tablet 650 MG PO ×2 (11:24→22:45)
--- NOTE | 2019-09-22 11:41 | PC.NURSE ---
HICCUPS AND HEADACHE HAVE RETURNED, IMITREX DID NOT WORK YET, TYLENOL GIVEN. HE HAS HAD TRAMADOL, IMATREX AND BACLUFEN.
[2019-09-22 16:36] LABS: Glucose Point of Care 300 mg/dL (70-110)
[2019-09-22 20:18] LABS: Glucose Point of Care 332 mg/dL (70-110)
[2019-09-23] VITALS (7 sets, daily range): BP systolic 141–150; BP diastolic 80–89; PULSE 64–82; RESP 18–22; TEMP 36.5–37; O2SAT 88–94
[2019-09-23] MEDS: enoxaparin 120 mg/0.8 mL Syringe SUBCUT (05:04)
[2019-09-23 06:04] LABS: Ferritin 808 ng/mL (30-400)
[2019-09-23 07:30] LABS: Glucose Point of Care 190 mg/dL (70-110)
[2019-09-23] MEDS: TRAMadol 50 mg Tablet PO (07:57)
[2019-09-23] MEDS: ascorbic acid 500 mg Tablet PO (08:43)
[2019-09-23] MEDS: baclofen 10 mg Tablet PO (08:43)
[2019-09-23] MEDS: aspirin 81 mg EC Tablet PO (08:43)
[2019-09-23] MEDS: lisinopril 20 mg Tablet PO (08:43)
[2019-09-23] MEDS: amlodipine 10 mg Tablet PO (08:43)
[2019-09-23] MEDS: thiamine 100 mg Tablet PO (08:44)
[2019-09-23] MEDS: predniSONE 20 mg Tablet 40 MG PO (08:44)
[2019-09-23] MEDS: zinc gluconate 50 mg Tablet PO (08:44)
[2019-09-23] MEDS: pantoprazole DR 40 mg Tablet PO (08:44)
[2019-09-23] MEDS: benzonatate 100 mg Capsule PO (10:09)
[2019-09-23 11:01] LABS: Glucose Point of Care 285 mg/dL (70-110)
--- NOTE | 2019-09-23 11:27 | P.DS_ITS ---
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 Order CXR to monitor progression -Resolved leukocytosis, afebrile x > 72 hrs -Continue Advair, Spiriva, IS, antitussives as needed, zinc, thiamine, vitamin C -Off IV steroids, switch to oral prednisone due to noted clinical and imaging improvement; will need taper on discharge -Nystatin solution PRN -D-dimer elevated, negative PE on CTA; on therapeutic dose of Lovenox due to associated thrombosis with COVID-19 infections. Will d/c on Eliquis x 2 weeks -repeat test pending -Has a dry persistent cough -Sputum culture pending, gram stain growing rare GPC and GPRs -diarrhea resolved; stool studies negative (2) Pneumonia: Status: Acute Problem details: -as noted above -associated pleurisy; improving -blood cx: negative -Legionella negative -stool studies negative, FOBT + -CXR normalized Qualifiers: Laterality: unspecified laterality Lung location: unspecified part of lung Pneumonia type: due to unspecified organism Qualified Code(s): J18.9 - Pneumonia, unspecified organism (3) GERD (gastroesophageal reflux disease): Status: Chronic Problem details: -on PPI -noted gastritis on endoscopy Qualifiers: Esophagitis presence: with esophagitis Qualified Code(s): K21.0 - Gastro-esophageal reflux disease with esophagitis (4) Hypertension: Status: Chronic Problem details: -Vital signs stable, continue to monitor; anticipate some hypertension with steroid use -continue oral antihypertensives (Amlodipine, Lisinopril) Qualifiers: Hypertension type: essential hypertension Qualified Code(s): I10 - Essential (primary) hypertension (5) Chronic low back pain: Status: Chronic Problem details: -pain control as needed Qualifiers: Back pain laterality: unspecified Sciatica presence: unspecified whether sciatica present Qualified Code(s): M54.5 - Low back pain; G89.29 - Other chronic pain Other Information Additional DC diagnoses/information: -Morbid obesity: BMI-38 kg/m2 -Hyperglycemia, no dx of DM, likely steroid induced, Accucheks, ISS -Insomnia, likely due to steroids, Ambien PRN seems to be helping Reason for Visit Reason for Visit: COVID+/SOB Hospital Course Hospital Course: Patient was admitted directly to the viral ICU following COVID-19 positive test done elsewhere, with noted symptoms including malaise, diarrhea, dyspnea, nausea. He was found to have evidence of pneumonia on imaging. Labs particularly inflammatory markers were monitored daily. He initially did not require oxygen so was managed with supportive care including initiation of IV steroids. However during his hospital course he did develop some hypoxia requiring supplemental oxygen support at which point Remdesevir was initiated. He received a total of 3 days worth of this treatment with noted overall improvement. Follow-up imaging shows resolving infection at which point IV steroids were switched to oral steroids particularly in light of his poor sleep and overall clinical improvement. He has consistently been afebrile, has been off supplemental oxygen support for more than 72 hours. Hospital stay was extended by a few days due to discrepancy between labs and patient's clinical appearance. Despite normalization of almost all of his inflammatory markers except for ferritin which has been trending down, lack of fever and no need for supplemental oxygen support he overall appeared quite ill though for the past 48 hours this has been improving particularly with improved sleep. He will require additional time to continue to recuperate and I have discussed need for continued isolation and close monitoring at home with both him and his extensively throughout the week. Repeat COVID-19 test has been sent per his request as he will need at least 2 of these negative tests before returning to work. He is cautioned on need to continue to isolate to complete the 14-day quarantine. Repeat test results are still pending and he will be contacted with these results once they are available. Due to correlation between COVID-19 infection and increased risk for thrombosis he has been covered with therapeutic anticoagulation which will be continued for an additional 2 weeks. He will be sent on a tapering dose of oral steroids. He has had hyperglycemia which is likely steroid-induced and anticipate that this will resolve once off steroid therapy. Should he have concern for hypoglycemia he can be tested for with an A1c check which can be arranged by his primary care provider. He has had some issues with migraine headaches which have been managed symptomatically during his hospital stay. I anticipate improvement with continued resolution of infection. Discharge Summary: -Patient to follow-up with his primary care provider within 1 week Physical Exam Const: COMMON NORMALS: no acute distress and patient oriented x3 GENERAL APPEARANCE: cooperative and comfortable NUTRITIONAL APPEARANCE: obese morbidly obese ORIENTATION/CONSCIOUSNESS: Yes awake HENMT: COMMON NORMALS: normocephalic, atraumatic, hearing grossly normal bilaterally and moist oral mucous membranes HEAD & SCALP: normocephalic and atraumatic Eye: COMMON NORMALS: Equal, round and reactive pupils present, EOMs intact bilaterally and conjunctivae normal CONJUNCTIVA: Yes conjunctivae normal PUPIL: Yes Equal, round and reactive pupils present Neck/C-Spine: COMMON NORMALS: full ROM GENERAL: Yes normal visual inspection and Yes trachea midline Resp: COMMON NORMALS: normal respiratory effort, No retractions, No use of accessory muscles and clear to auscultation bilaterally EFFORT & INSPECTION: Yes able to speak in complete sentences, Yes symmetric chest movement, Yes tachypneic (Mildly) and Yes Actively coughing non-productive AUSCULTATION: clear to auscultation bilaterally and crackles (minimal in bilateral bases) OTHER: -On room air Cardio: COMMON NORMALS: regular rate, regular rhythm, S1 normal heart sound present, S2 normal heart sound present and No murmurs present (Cardio) RATE: regular rate RHYTHM: regular rhythm HEART SOUNDS: S1 normal heart sound present and S2 normal heart sound present GI: COMMON NORMALS: Normal to inspection, nondistended, normoactive bowel sounds present, Soft to palpation and non-tender INSPECTION: Yes central obesity PALPATION: Yes Soft to palpation Extremity: COMMON NORMALS: normal to inspection, full ROM and no clubbing, cyanosis or edema; negative for no pedal edema Neuro: COMMON NORMALS: patient oriented x3, moves all extremities, no focal motor deficits and no sensory deficits noted Psych: COMMON NORMALS: mental status grossly normal, Normal thought process present, cooperative, normal affect and speech normal SPEECH: Yes normal speech THOUGHT PROCESS: Normal thought process present Skin: COMMON NORMALS: no rashes or lesions noted, no jaundice, no petechiae and no mottling GENERAL SKIN EXAM: no rashes or lesions noted Discharge Data Data Completed and Pending: Completed Studies During Hospitalization Category Date Time Status CT angio chest PE protcl [id number] Urge nt Cat Scan 09/17/19 10:34 Completed XR chest 1V meli ble [id number] Routine Exams 09/21/19 08:52 Completed XR chest 1V meli ble [id number] Stat Exams 09/16/19 18:37 Completed Pending at discharge Category Date Time Status Coronavirus Lab T est PTC Routine Lab 09/21/19 11:30 Received Sputum Culture an d Gram Stain Routi ne Lab 09/18/19 09:00 Results Labs from last 24 hours 09/23/19 09/23/19 09/23/19 10:57 07:24 04:55 POC Glucose 285 190 Ferritin 808 H 09/22/19 09/22/19 20:06 16:25 POC Glucose 332 300 Ferritin Vitals: Last Vital Signs Temp 97.7 F 09/23/19 07:36 Pulse 64 09/23/19 07:31 Resp 18 09/23/19 07:31 BP 144/89 09/23/19 07:31 Pulse Ox 94 09/23/19 07:31 Discharge Plan Discharge Patient Disposition: Home Condition: Stable Prescriptions: New Vitamin C 500 mg Tablet 500 mg PO BID 30 Days Qty: 60 RF: 0 benzonatate 100 mg Capsule 100 mg PO TID PRN (Reason: Cough) Qty: 30 RF: 0 zinc gluconate 50 mg Tablet 50 mg PO DAILY 30 Days Qty: 30 RF: 0 zolpidem 10 mg Tablet 10 mg PO BEDTIME PRN (Reason: Insomnia) Qty: 30 RF: 0 Vitamin B-1 (mononitrate) 100 mg Tablet 100 mg PO DAILY 30 Days Qty: 30 RF: 0 prednisone 10 mg tablet See Rx Instructions .ROUTE .COMPLEX 11 Days Qty: 26 RF: 0 Eliquis 5 mg tablet 5 mg PO BID 14 Days Qty: 28 RF: 0 Continued ondansetron HCl 4 mg tablet 4 mg PO QDAY PRNRF: 0 Prilosec OTC 50 mg 50 mg RF: 0 lisinopril 20 mg tablet 20 mg PO DAILY Qty: 30 RF: 0 tramadol 50 mg tablet 50 mg PO BID PRN (Reason: Pain) 30 Days Qty: 60 RF: 0 amlodipine 10 mg tablet 10 mg PO DAILY Qty: 30 RF: 0 Changed aspirin 81 mg 81 mg PO DAILY 30 Days Qty: 30 RF: 0 Discharge Orders: Discharge Order (Routine); Ordered 09/23/19 Ordered By: Sirisha Velázquez Referrals: Polly Jim, 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 COVID-19 positive. Received Remdesevir x 3 days. ) Discharge Diet: Low Salt Discharge Activity: Increase activity as tolerated Activity Restrictions/Additional Instructions: -Please monitor your vital signs, specifically blood pressure, heart rate, oxygen level and temperature at least once daily. If noted abnormalities particularly fever, low oxygen level please seek medical attention immediately -Please continue isolation precautions on return home including wearing a mask, maintaining a distance of at least 6 feet from other individuals, proper hand hygiene, limiting outside exposure, sanitizing all shared spaces, surfaces Discharge Attestations Time Spent in Discharge Care*: greater than 30 min Specific Discharge Activities: Specific discharge activities: educating patient, educating and/or supporting family/caregiver ( Esha), discussing with employment evaluator/case manager/social workers/dc planners, documenting/other paperwork and evaluating patient/reviewing data Status at Discharge: Cognitive status at discharge: cognitively intact , Behavioral status at discharge: cooperative and independent in ADL's , Functional status at discharge: independent ambulation Overall status at discharge: patient is progressing back to baseline Quality Metrics Clinical Quality Measures During this hospital stay, did patient experience: None Coding Level of Care Code 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
[2019-09-23] MEDS: acetaminophen 325 mg Tablet 650 MG PO (14:35)
[2019-09-23 18:45] LABS: Coronavirus Lab Test PTC Positive
== END 2019-09-23 14:47 | disposition home or self-care (01) | DRG 177 ==
LOC: ER 22:03 → ICU 22:26
PROVIDERS: Emergency Medicine; Student in an Organized Health Care Education/Training Program; Admitting Provider Internal Medicine; PCP Registered Nurse; Visit Provider Family Medicine
DX: U07.1 COVID-19 (principal); J12.89 Other viral pneumonia; K21.9 Gastro-esophageal reflux disease without esophagitis; I10 Essential (primary) hypertension; G89.29 Other chronic pain; M54.5 Low back pain; G47.00 Insomnia, unspecified; R73.9 Hyperglycemia, unspecified; E66.01 Morbid (severe) obesity due to excess calories; Z68.37 Body mass index [BMI] 37.0-37.9, adult; Z79.82 Long term (current) use of aspirin; Z87.891 Personal history of nicotine dependence
CPT/HCPCS: 12345; 36415; 36416; 71045; 71275; 80048; 80053; 81001; 82274; 82550; 82728; 82962; 83605; 83615; 83630; 83735; 83880; 84145; 85025; 85378; 85384; 85610; 85651; 86140; 87040; 87070; 87205; 87449; 87506; 87635; 94640; 96372; 96375; 99284; G0378; J1100; J1650; J1815; J3535; J7030; J7512; J8540; Q9967

== ENCOUNTER 2019-10-18 10:26 | Emergency (ER) | payer BC, SELFPAY ==
--- NOTE | 2019-10-18 10:38 | CTR_ITS ---
PROCEDURE INFORMATION: Exam: CT Abdomen And Pelvis Without Contrast Exam date and time: 10/18/2019 10:50 AM Age: 58 years old Clinical indication: Abdominal pain; Right lower quadrant (rlq); Prior surgery; Surgery date: 6+ months; Surgery type: Colon for diverticulitis; Patient HX: RT side flank pain x 3 hours, . HX of kidney stones; Additional info: Kidney stone, abdominal pain TECHNIQUE: Imaging protocol: Computed tomography of the abdomen and pelvis without contrast. Radiation optimization: All CT scans at this facility use at least one of these dose optimization techniques: automated exposure control; mA and/or kV adjustment per patient size (includes targeted exams where dose is matched to clinical indication); or iterative reconstruction. COMPARISON: CT abdomen pelvis w con* [id number] 02/13/2019 9:25 AM RADIATION DOSE METRICS: Total DLP (mGy-cm): 1969.69 FINDINGS: Liver: Mild diffuse hypoattenuation of the liver is present consistent with hepatic steatosis. Gallbladder and bile ducts: Normal. No calcified stones. No ductal dilation. Pancreas: Moderate pancreatic atrophy. Spleen: Normal. No splenomegaly. Adrenals: Normal. No mass. Kidneys and ureters: The right pelvic ureter is mildly dilated to the level of a 3.9 mm calculus 1 cm above the ureterovesical junction. The right kidney shows mild pelviectasis and mild abdominal ureterectasis with moderate perinephric stranding. Right renal calculi (5), the largest in the posterior mid kidney measuring 6.8 mm. Left renal calculi (approximately 7), the largest in the posterior mid kidney measuring 2.7 mm. Stomach and bowel: Sigmoid, descending and transverse colonic diverticula are present without evidence of diverticulitis. Appendix: The vermiform appendix is not identified on this examination. There is, however, no pericecal abnormality to suggest appendicitis. Intraperitoneal space: Unremarkable. No free air. No significant fluid collection. Vasculature: The left iliac arteries show mild atherosclerotic calcifications without evidence of aneurysm. Lymph nodes: No enlarged lymph nodes. Bladder: The urinary bladder is partially decompressed and somewhat difficult to assess. Reproductive: The prostate gland demonstrates nonspecific parenchymal calcifications. Bones/joints: Unremarkable. No acute fracture. Soft tissues: Unremarkable. CT/CT kidney stone [id number] IMPRESSION: 1. Right obstructive uropathy secondary to a distal pelvic ureteral calculus. 2. Bilateral renal calyceal lithiasis. 3. Mild fatty infiltration of the liver. 4. Diverticulosis. 5. Chronic calcific prostatitis. Radiation Dose CTDIVOL = (mGy): DLP = 1969.69 (mGy-cm)
--- NOTE | 2019-10-18 10:38 | XRR_ITS ---
PROCEDURE INFORMATION: Exam: XR Abdomen, 1 View Exam date and time: 10/18/2019 11:25 AM Age: 58 years old Clinical indication: Abdominal pain; Prior surgery; Surgery type: Colon; Patient HX: Right flank pain this a. M. History or prior nephrolithiasis; Additional info: Abdominal pain, right flank, h/o renal stone TECHNIQUE: Imaging protocol: XR of the abdomen. Views: Frontal supine view of the abdomen. 1 View. COMPARISON: CT kidney stone [id number] 10/18/2019 11:40 AM FINDINGS: Gastrointestinal tract: Unremarkable. No bowel dilation. Intraperitoneal space: 3.4 mm right distal ureteral caliceal calculus redemonstrated. Organs: Previously demonstrated bilateral renal calyceal lithiasis questionably demonstrated on the left, not identified on the right on this image. Bones/joints: No acute abnormality identified. XR/XR KUB [id number] IMPRESSION: Right distal ureteral caliceal calculus redemonstrated.
[2019-10-18 10:41] VITALS: BP 166/89; PULSE 83; RESP 18; TEMP 37; O2SAT 95
--- NOTE | 2019-10-18 10:49 | ED_ITS ---
HPI - Abdominal Pain General: Chief Complaint: Abdominal Pain Stated Complaint: KIDNEY STONE Time Seen by Provider: 10/18/19 10:28 History of Present Illness: HPI narrative: 58-year-old male patient presents to the emergency department with complaints of abdominal pain. He reports, kidney stone pain started this a.m. Previous history of kidney stones. Previous stone approximately 2 years ago. Is not under the care of urologist. He reports pain is colic-like, comes in waves. History of diverticulitis with colon resection several years ago. He reports nausea when pain produced. Denies vomiting/diarrhea. He reports his administered laxative this morning that might help with pain. Associated Symptoms: Reports nausea; Denies chills, dysuria, fever(s), heartburn, hematochezia, hematuria and vomiting Review of Systems General: Reports: 10 or more systems reviewed and unremarkable except in HPI and below Const: Denies: fever(s), chills or diaphoresis Eyes: Denies: blurry vision or eye redness ENMT: Denies: throat pain, dental pain or disequilibrium Card: Denies: chest pain, palpitations or irregular heart rhythm Resp: Denies: dyspnea, productive cough, non-productive cough or wheezing GI: Reports: abdominal pain and nausea; Denies: vomiting, heartburn, pain on defecation or hematochezia : Reports: flank pain (right), urinary frequency, urinary urgency, urinary dribbling, genital pain and testicular pain; Denies: dysuria or hematuria Musc: Denies: back pain Skin/Breast: Denies: rash or pruritus Neuro: Denies: headache(s), weakness in extremities or behavioral changes Jamie/Lymph: Denies: easy bruising PFSH ED PFSH: Medical History (Updated 10/18/19 @ 13:12 by HENRY Brito) Arthritis Chronic low back pain -pain control as needed Diverticulosis Gastritis GERD (gastroesophageal reflux disease) -on PPI -noted gastritis on endoscopy Hypertension -Vital signs stable, continue to monitor; anticipate some hypertension with steroid use -continue oral antihypertensives (Amlodipine, Lisinopril) Insomnia Obesity Surgical History (Updated 09/20/19 @ 13:24 by Sirisha Velázquez MD) H/O colectomy History of colon surgery History of esophagogastroduodenoscopy (EGD) 02/14/2019 esophagogastroduodenoscopy with biopsy Postop findings: Multiple gastric erosions Hx of tonsillectomy S/P tonsillectomy Family History Mother Fibromyalgia Anesthesia complication Bleeding disorder Other CAD (coronary artery disease) Crohn's disease Diabetes Hypertension Social History Smoking and tobacco status: former smoker Alcohol intake: never Lives independently: Yes Household members: spouse Marital status: Current occupational status: employed History of recent travel: No Physical Exam Const: COMMON NORMALS: patient oriented x3, alert and well nourished GENERAL APPEARANCE: cooperative, anxious and well hydrated NUTRITIONAL APPEARANCE: obese HENMT: COMMON NORMALS: normocephalic, Normal external nose present and moist oral mucous membranes HEAD & SCALP: normocephalic NOSE: Normal external nose present Eye: COMMON NORMALS: Equal, round and reactive pupils present and EOMs intact bilaterally GENERAL EYE: appearance normal, both eyes and all related structures PUPIL: Yes Equal, round and reactive pupils present Neck/C-Spine: COMMON NORMALS: full ROM and no lymphadenopathy GENERAL: Yes normal visual inspection and Yes trachea midline CERVICAL SPINE: Yes cervical ROM normal Lymph: LYMPHATIC: no lymphadenopathy noted Chest: COMMONS NORMALS: normal inspection of the chest Resp: COMMON NORMALS: normal respiratory effort and clear to auscultation bilaterally AUSCULTATION: clear to auscultation bilaterally Cardio: COMMON NORMALS: regular rhythm, S1 normal heart sound present and S2 normal heart sound present RHYTHM: regular rhythm HEART SOUNDS: S1 normal heart sound present and S2 normal heart sound present GI: INSPECTION: Yes normal to inspection and Yes central obesity AUSCULTATION: Yes normoactive bowel sounds PALPATION: Yes Firmness to palpation present (GI) and Yes Tenderness to palpation present (GI) RECTAL EXAM: Yes deferred : COMMON NORMALS: Yes no scrotal swelling BLADDER/KIDNEY EXAM: Yes CVA tenderness on the right MALE GROIN/PERINEUM EXAM: No inguinal lymphadenopathy Back/Pelvis: COMMON NORMALS: thoracic and lumbar spine normal to inspection GENERAL BACK: Yes CVA tenderness Extremity: COMMON NORMALS: normal to inspection and capillary refill normal Neuro: COMMON NORMALS: patient oriented x3 and no focal motor deficits SENSORIUM/ORIENTATION: Yes alert Psych: COMMON NORMALS: mental status grossly normal, Normal thought process present and cooperative ACTIVITY/MOTOR BEHAVIOR: Yes appropriate eye contact THOUGHT PROCESS: Normal thought process present Skin: COMMON NORMALS: no rashes or lesions noted and turgor normal GENERAL SKIN EXAM: no rashes or lesions noted and turgor normal Course ED course: 58-year-old male patient presents to the emergency department with probable kidney stone, confirmed with CT the abdomen pelvis, renal stone protocol. Obstructing 3.4 mm right distal ureteral calculus present. Consult with Dr. North completed, plan of care with medications reviewed, plan of care discussed with the patient, instructions regarding renal stone complications and possible surgical intervention discussed, verbalized understanding, agrees to follow-up with Dr. North tomorrow, social service consult completed with need for follow-up. Consultations: Consultation #1: Dr North - case discussed, labs and radiology results discussed, okay to have Toradol, control pain, f/u tomorrow in Dr North's office - pt to be NPO after midnight if pain continues to occur with frequent use of narcotics - start Flomax. Vital Signs: Vital signs: Vital Signs Temperature 98.6 F 10/18/19 10:41 Pulse Rate 82 10/18/19 13:54 Respiratory Rate 18 10/18/19 13:54 Blood Pressure 166/89 10/18/19 13:54 Pulse Oximetry 96 10/18/19 13:54 MDM - Abdominal Pain Lab Data: Labs: Lab Results 10/18/19 10/18/19 10/18/19 Range/Units 10:35 10:35 11:04 WBC 6.6 (4.0-10.0) 10^3/ uL RBC 4.33 (4.1-5.3) 10^6/u L Hgb 13.7 (11.7-16.6) g/dL Hct 41.7 L (42.0-52.0) % MCV 96.3 H (80-94) fL MCH 31.6 (28.0-34.0) pg MCHC 32.9 (30.0-36.0) g/dL RDW 13.7 (12.1-15.1) % Plt Count 440 H (130-400) 10^3/c mm MPV 8.6 (7.4-10.4) fL Neut % (Auto) 70.4 % Lymph % (Auto) 14.9 % [place] % (Auto) 7.9 % Eos % (Auto) 4.6 % Baso % (Auto) 0.8 % Neut # (Auto) 4.62 (1.8-7.7) 10^3/u L Lymph # (Auto) 1.0 (0.8-4.8) 10^3/u L [place] # (Auto) 0.5 (0.2-0.9) 10^3/u L Eos # (Auto) 0.3 (0.0-0.8) 10^3/u L Baso # (Auto) 0.1 (0.0-0.1) 10^3/u L Nucleated RBC % (a uto) 0 % Nucleated RBCs # 0.0 /100WBC Sodium 139 (136-145) mmol/L Potassium 4.5 (3.5-5.1) mmol/L Chloride 101 (98-107) mmol/L Carbon Dioxide 25 (22-29) mmol/L Anion Gap 17.5 (5-19) BUN 18 (6-20) mg/dL Creatinine 1.1 (0.7-1.2) mg/dL GFR Calculation 68.5 L (90-130) mL/min Glucose 175 H (65-115) mg/dL Calculated Osmolal ity 289 (285-295) mOsm/k g Calcium 9.9 (8.5-10.5) mg/dL Total Bilirubin 0.4 (0.15-1.2) mg/dL AST 24 (0-40) U/L ALT 24 (0-41) U/L Alkaline Phosphata se 77 (40-130) IU/L Total Protein 7.9 (6.6-8.7) g/dL Albumin 4.5 (3.5-5.2) g/dL Globulin 3.4 (1.3-4.6) g/dL Urine Color Straw (Yellow) Urine Appearance Clear (CLEAR) Urine pH 8.0 H (5-7) Ur Specific Gravit y 1.010 (1.005-1.030) Urine Protein Neg (Negative) Urine Glucose (UA) Norm (Normal) Urine Ketones Negative (Negative) Urine Blood 3+ H (Negative) Urine Nitrate Negative (Negative) Urine Bilirubin Neg (NEGATIVE) Prot Sulfosalicyli c Acd Negative (Negative) Urine Urobilinogen Norm (Negative) mg/dL Ur Leukocyte Ava ase Negative (Negative) Urine RBC 25-40 H (0-2) /hpf Urine WBC None (0-5) /hpf Ur Squamous Epith Cells 0-4 H (0-5) Amorphous Sediment Not Reportable Urine Bacteria Trace (NONE) Imaging Data ^: KUB: Radiologist's impression: [place] [address] XRay Report Signed Patient: Maurilio Capone #: [id number] : 1960Acct#:[id number] Age/Sex: 58 / MADM Date: 10/18/19 Loc: ERRoom/Bed: Attending Dr: Ordering Provider/Ordering MD: Penny Wilkes Date of Service: 10/18/19 Procedure(s): XR KUB [id number] Accession Number(s): [id number] Report Number: [id number] PROCEDURE INFORMATION: Exam: XR Abdomen, 1 View Exam date and time: 10/18/2019 11:25 AM Age: 58 years old Clinical indication: Abdominal pain; Prior surgery; Surgery type: Colon; Patient HX: Right flank pain this a. M. History or prior nephrolithiasis; Additional info: Abdominal pain, right flank, h/o renal stone TECHNIQUE: Imaging protocol: XR of the abdomen. Views: Frontal supine view of the abdomen. 1 View. COMPARISON: CT kidney stone [id number] 10/18/2019 11:40 AM FINDINGS: Gastrointestinal tract: Unremarkable. No bowel dilation. Intraperitoneal space: 3.4 mm right distal ureteral caliceal calculus redemonstrated. Organs: Previously demonstrated bilateral renal calyceal lithiasis questionably demonstrated on the left, not identified on the right on this image. Bones/joints: No acute abnormality identified. XR/XR KUB [id number] IMPRESSION: Right distal ureteral caliceal calculus redemonstrated. Dictated By:Hernando Serrato MD Signed By:Hernando Serrato Date/Time:10/18/[address] Abd/Pel: Radiologist's impression: [address] [address] [address] Scan Report Signed Patient: Maurilio Capone #: [id number] : 1960Acct#:[id number] Age/Sex: 58 / MADM Date: 10/18/19 Loc: ERRoom/Bed: Attending Dr: Ordering Provider/Ordering MD: Penny Wilkes Date of Service: 10/18/19 Procedure(s): CT kidney stone [id number] Accession Number(s): [id number] Report Number: [id number] PROCEDURE INFORMATION: Exam: CT Abdomen And Pelvis Without Contrast Exam date and time: 10/18/2019 10:50 AM Age: 58 years old Clinical indication: Abdominal pain; Right lower quadrant (rlq); Prior surgery; Surgery date: 6+ months; Surgery type: Colon for diverticulitis; Patient HX: RT side flank pain x 3 hours, . HX of kidney stones; Additional info: Kidney stone, abdominal pain TECHNIQUE: Imaging protocol: Computed tomography of the abdomen and pelvis without contrast. Radiation optimization: All CT scans at this facility use at least one of these dose optimization techniques: automated exposure control; mA and/or kV adjustment per patient size (includes targeted exams where dose is matched to clinical indication); or iterative reconstruction. COMPARISON: CT abdomen pelvis w con* [id number] 02/13/2019 9:25 AM RADIATION DOSE METRICS: Total DLP (mGy-cm): 1969.69 FINDINGS: Liver: Mild diffuse hypoattenuation of the liver is present consistent with hepatic steatosis. Gallbladder and bile ducts: Normal. No calcified stones. No ductal dilation. Pancreas: Moderate pancreatic atrophy. Spleen: Normal. No splenomegaly. Adrenals: Normal. No mass. Kidneys and ureters: The right pelvic ureter is mildly dilated to the level of a 3.9 mm calculus 1 cm above the ureterovesical junction. The right kidney shows mild pelviectasis and mild abdominal ureterectasis with moderate perinephric stranding. Right renal calculi (5), the largest in the posterior mid kidney measuring 6.8 mm. Left renal calculi (approximately 7), the largest in the posterior mid kidney measuring 2.7 mm. Stomach and bowel: Sigmoid, descending and transverse colonic diverticula are present without evidence of diverticulitis. Appendix: The vermiform appendix is not identified on this examination. There is, however, no pericecal abnormality to suggest appendicitis. Intraperitoneal space: Unremarkable. No free air. No significant fluid collection. Vasculature: The left iliac arteries show mild atherosclerotic calcifications without evidence of aneurysm. Lymph nodes: No enlarged lymph nodes. Bladder: The urinary bladder is partially decompressed and somewhat difficult to assess. Reproductive: The prostate gland demonstrates nonspecific parenchymal calcifications. Bones/joints: Unremarkable. No acute fracture. Soft tissues: Unremarkable. CT/CT kidney stone [id number] IMPRESSION: 1. Right obstructive uropathy secondary to a distal pelvic ureteral calculus. 2. Bilateral renal calyceal lithiasis. 3. Mild fatty infiltration of the liver. 4. Diverticulosis. 5. Chronic calcific prostatitis. Radiation Dose CTDIVOL = (mGy): DLP = 1969.69 (mGy-cm) Dictated By:Hernando Serrato MD Signed By:Hernando Serratoigned Date/Time:10/18/19 1232 Discharge Plan Discharge Patient Disposition: Home Clinical Impression: Kidney calculi, Hydronephrosis with renal calculous obstruction Condition: Stable Prescriptions: New hydrocodone-acetaminophen 7.5-325 mg tablet 1 tab PO Q4H MDD 6 PRN (Reason: pain) Qty: 14 RF: 0 Flomax 0.4 mg capsule 0.4 mg PO Q24H Qty: 14 RF: 0 Zofran 4 mg tablet 4 mg PO Q6H PRN (Reason: nausea and vomiting) Qty: 10 RF: 0 Discontinued tramadol 50 mg tablet 50 mg PO BID PRN (Reason: Pain) 30 Days Qty: 60 RF: 0 acetaminophen [Tylenol Extra Strength] 500 mg Tablet 1,000 mg PO BID RF: 0 No Action ascorbic acid (vitamin C) [Vitamin C] 500 mg Tablet 500 mg PO BID 30 Days Qty: 60 RF: 0 benzonatate 100 mg Capsule 100 mg PO TID PRN (Reason: Cough) Qty: 30 RF: 0 zinc gluconate 50 mg Tablet 50 mg PO DAILY 30 Days Qty: 30 RF: 0 zolpidem 10 mg Tablet 10 mg PO BEDTIME PRN (Reason: Insomnia) Qty: 30 RF: 0 thiamine mononitrate (vit B1) [Vitamin B-1 (mononitrate)] 100 mg Tablet 100 mg PO DAILY 30 Days Qty: 30 RF: 0 lisinopril 20 mg tablet 20 mg PO DAILY Qty: 30 RF: 0 amlodipine 10 mg tablet 10 mg PO DAILY Qty: 30 RF: 0 aspirin 81 mg 81 mg PO DAILY 30 Days Qty: 30 RF: 0 omeprazole 20 mg Capsule,Delayed Release(Dr/Ec) 20 mg PO DAILY RF: 0 Eliquis 5 mg tablet 5 mg PO BID RF: 0 magnesium citrate See Rx Instructions .ROUTE .COMPLEX RF: 0 Discharge Orders: Discharge Order (Routine); Ordered 10/18/19 Ordered By: Penny Wilkes Referrals: Polly Jim, TERESA [Primary Care Provider] - Discharge Diet: Usual diet Discharge Activity: Resume usual activity Patient Instructions: Kidney Stones (ED), Renal Colic (ED) Activity Restrictions/Additional Instructions: Follow-up with Dr. North tomorrow, if your pain continues and you are utilizing hydrocodone every 4 hours, do not eat or drink anything after midnight as surgical intervention may be needed tomorrow. If you develop nausea vomiting, inability to hold fluids down, you will need to return to the emergency department If you develop fever or chills worsening abdominal pain, you will need to return to the emergency department Start Flomax tomorrow, your first dose has been administered here in the emergency department Use pain medications only as needed Stand Alone Forms: Work/School Release Discharge Date/Time: 10/18/19 13:54 Coding Level of Care Code ED [employer] for Rolan Fwvanessa Exam Comprehensive
[2019-10-18 10:52] LABS: Basophils # 0.1 10^3/uL (0.0-0.1); Basophils % 0.8 %; Eosinophils # 0.3 10^3/uL (0.0-0.8); Eosinophils % 4.6 %; Hematocrit 41.7 % (42.0-52.0); Hemoglobin 13.7 g/dL (11.7-16.6); Lymphocytes % 14.9 %; Mean Corpuscular HGB Conc 32.9 g/dL (30.0-36.0); Mean Corpuscular Hemoglobin 31.6 pg (28.0-34.0); Mean Corpuscular Volume 96.3 fL (80-94); Mean Platelet Volume 8.6 fL (7.4-10.4); Monocytes # 0.5 10^3/uL (0.2-0.9); Monocytes % 7.9 %; Neutrophils # 4.62 10^3/uL (1.8-7.7); Neutrophils % 70.4 %; Nucleated Red Blood Cells % 0 %; Platelet Count 440 10^3/cmm (130-400); Red Blood Count 4.33 10^6/uL (4.1-5.3); Red Cell Distribution Width 13.7 % (12.1-15.1); White Blood Count 6.6 10^3/uL (4.0-10.0)
[2019-10-18 11:14] LABS: Alanine Aminotransferase 24 U/L (0-41); Albumin Level 4.5 g/dL (3.5-5.2); Alkaline Phosphatase 77 IU/L (40-130); Anion Gap 17.5 (5-19); Aspartate Amino Transferase 24 U/L (0-40); Blood Urea Nitrogen 18 mg/dL (6-20); Calcium 9.9 mg/dL (8.5-10.5); Carbon Dioxide 25 mmol/L (22-29); Chloride 101 mmol/L (98-107); Globulin 3.4 g/dL (1.3-4.6); Glomerular Filtration Rate 68.5 mL/min (90-130); Glucose 175 mg/dL (65-115); Osmolality Calculated 289 mOsm/kg (285-295); Potassium 4.5 mmol/L (3.5-5.1); Sodium 139 mmol/L (136-145); Total Bilirubin 0.4 mg/dL (0.15-1.2); Total Protein 7.9 g/dL (6.6-8.7)
[2019-10-18] MEDS: ondansetron 2 mg/ML SDV 2 mL 4 MG IVP (11:30)
[2019-10-18 11:31] VITALS: RESP 18
[2019-10-18 11:31] LABS: Add Urine Microscopic? YES; Bilirubin Urine Neg (NEGATIVE); Blood Urine 3+ (Negative); Glucose Urine UA Norm (Normal); Ketones Urine Negative (Negative); Leukocyte Esterase Urine Negative (Negative); Nitrate Urine Negative (Negative); Protein Urine Neg (Negative); Sulfosalicylic Acid Urine Negative (Negative); Urine Appearance Clear (CLEAR); Urine Color Straw (Yellow); Urobilinogen Urine Norm (Negative)
[2019-10-18] MEDS: morphine 4 mg/mL SDV 1 mL IVP ×2 (11:31→13:35)
[2019-10-18 11:32] LABS: Add Urine Culture? Yes; Bacteria Urine TRACE; RBC Urine 25-40 /hpf (0-2); Squamous Epithelial Cell Urine 0-4 (0-5)
[2019-10-18] MEDS: sodium chloride 0.9% 500 ML 999 ML IV (11:33)
[2019-10-18 13:35] VITALS: RESP 18
[2019-10-18] MEDS: ketorolac 30 mg/mL INJ IVP (13:35)
[2019-10-18] MEDS: tamsulosin 0.4 mg Capsule PO (13:35)
[2019-10-18 13:54] VITALS: BP 166/89; PULSE 82; RESP 18; O2SAT 96
--- NOTE | 2019-10-19 10:19 | DCPLANNER ---
medical billing manager had message to schedule a follow up appointment for patient with Dr. North. medical billing manager called the office of Dr. North, spoke with Shira, gave clinic patients information. medical billing manager was told that patients information would be printed and given to Alisa for review. Clinic will call patient with appointment information.
--- NOTE | 2019-10-22 08:06 | DCPLANNER ---
Patient had a follow up appointment scheduled for 10.20.[address] North - patient did attend appt.
== END 2019-10-18 13:54 | disposition home or self-care (01) ==
PROVIDERS: Emergency Provider Nurse Practitioner Family; PCP Registered Nurse
DX: N13.2 Hydronephrosis with renal and ureteral calculous obstruction (principal); Z79.82 Long term (current) use of aspirin; Z79.01 Long term (current) use of anticoagulants; I10 Essential (primary) hypertension; Z87.891 Personal history of nicotine dependence
CPT/HCPCS: 12345; 74018; 74176; 80053; 81001; 85025; 87086; 96361; 96374; 96375; 96376; 99282; 99284; J1885; J2270; J2405; J7040

== ENCOUNTER 2019-10-20 12:03 | Outpatient (CLI) | payer BC, SELFPAY ==
--- NOTE | 2019-10-20 12:00 | XRR_ITS ---
PROCEDURE INFORMATION: Exam: XR Abdomen, 1 View Exam date and time: 10/20/2019 12:33 PM Age: 58 years old Clinical indication: Condition or disease; Kidney or ureter condition; Calculus (stone) in kidney; Prior surgery; Surgery type: Colon for diverticulitis; Additional info: Kidney stones bilateral TECHNIQUE: Imaging protocol: XR of the abdomen. Views: Frontal supine view of the abdomen. 1 View. COMPARISON: CR XR KUB [id number] 10/18/2019 11:52 AM FINDINGS: Gastrointestinal tract: bowel gas pattern is nonspecific. Air filled large bowel including distal rectal gas. Moderate amount stool throughout the large bowel. Intraperitoneal space: Small 2 mm calcification right pelvis. Correlate. Previously noted. Organs: No calcifications are seen overlying the renal outlines Bones/joints: Unremarkable. XR/XR KUB [id number] IMPRESSION: 1. Bowel gas pattern is nonspecific. Air filled large bowel including distal rectal gas. 2. Moderate amount stool throughout the large bowel. 3. Small 2 mm calcification right pelvis. Correlate. Previously noted.
== END 2019-10-20 12:04 | disposition home or self-care (01) ==
LOC: RAD 12:06
PROVIDERS: PCP Registered Nurse; Visit Provider Urology
DX: N20.0 Calculus of kidney (principal)
CPT/HCPCS: 74018; 81001

== ENCOUNTER 2019-10-21 11:15 | Day surgery (SDC) | payer BC, SELFPAY ==
[2019-10-20 16:46] VITALS: BMI 38.7
--- NOTE | 2019-10-21 | SCC_ITS ---
Procedure done: Right ureteroscopy with stent 34.0 seconds of fluoroscopic guidance, for a cumulative dose of 19.90 mGy, was provided to Dr. North by the radiology department. C-arm images of the abdomen were saved for the patient's permanent record. [facility]
--- NOTE | 2019-10-21 11:22 | SC_ITS ---
WS: [id number] C-arm fluoroscopy image of the right abdomen, 10/21/2019 Clinical Data: Right ureteroscopy for stone Comparison: KUB, 10/20/2019 Findings: There is a wire which appears to be curled within the right renal pelvis. SC/C-arm FL for Urology Impression: Guidewire which appears to be curled within right renal pelvis.
[2019-10-21] MEDS: sodium chloride 0.9% 1,000 ML 30 ML IV (11:55)
--- NOTE | 2019-10-21 12:15 | ANES.PREANE2 ---
Pre-Anesthetic Assessment Pre-Anesthetic Assessment: Height/Weight: Height 1.83 m Weight 129.727 kg Preop Diagnosis: Right distal ureteral stone Proposed Procedure: Operation Date: 10/21/19 13:00 Proposed Procedures p Cystoscopy 12347 [id number] 97609 N13.2(Not Applicable) - MD mary ellen Ablert Retrograde Pyelogram(Right) - MD mary ellen Albert Ureteroscopy(Not Applicable) - MD mary ellen Albert Laser Lithotripsy(Not Applicable) - MD mary ellen Albert Ureteral Stent Placement(Not Applicable) - Basim North MD Familial anesthetic complications: none Was Beta [place] taken within 24 hours: N/A Last intake: Intake Last Liquid Date 10/20/19 Last Liquid Time 23:00 Last Solid Date 10/20/19 Last Solid Time 23:00 Exam: Pre-Anes Outpt Exam: alert, oriented x 3, clear to auscultation bilaterally and regular rate & rhythm Airway: Submandibular: WNL Cervical ROM: WNL MP: 2 Dentition: Chipped Additional comments: poor dentition History/ROS: No significant history except as noted Pulmonary: Pulmonary: Cough Comments: recent Covid hospitalization 09/21/19 CV/HEM: CV/HEM: HTN : : None reported Hepatic: Hepatic: None reported GI: GI: GERD Metabolic: Metabolic: Hyperlipidemia and Morbid obesity Musc/skel: Musc/skel: Lower Back Pain Neuropsych: Neuropsych: None reported Anesthetic Plan: ASA status: 3 Anesthesia: Anesthesia Evaluation and General Risk of > 500 ml blood loss (7ml/kg in children): No PFSH Anesthesia PFSH: Medical History Arthritis Chronic low back pain -pain control as needed Diverticulosis Gastritis GERD (gastroesophageal reflux disease) -on PPI -noted gastritis on endoscopy Hypertension -Vital signs stable, continue to monitor; anticipate some hypertension with steroid use -continue oral antihypertensives (Amlodipine, Lisinopril) Insomnia Obesity Surgical History H/O colectomy History of colon surgery History of esophagogastroduodenoscopy (EGD) 02/14/2019 esophagogastroduodenoscopy with biopsy Postop findings: Multiple gastric erosions Hx of tonsillectomy S/P tonsillectomy Family History Mother Fibromyalgia Anesthesia complication Bleeding disorder Other CAD (coronary artery disease) Crohn's disease Diabetes Hypertension Social History Smoking and tobacco status: former smoker Alcohol intake: never Lives independently: Yes Household members: spouse Marital status: Current occupational status: employed History of recent travel: No Data Anesthesia Cardiac Studies: No Data to Display
[2019-10-21] MEDS: levofloxacin-dextrose 5 % 500 MG/100 ML PREMIX 100 MG IV (12:25)
--- NOTE | 2019-10-21 12:52 | PC.NURSE ---
OMNIPAQUE 300MGI/ML3 ML INJECTED INTO RIGHT URETER; 47ML WASTED. EXP [id number]
[2019-10-21 13:09] VITALS: BP 147/87; PULSE 80; RESP 18; TEMP 36.3; O2SAT 98
[2019-10-21 13:15] VITALS: BP 135/70; PULSE 80; RESP 17; O2SAT 97
[2019-10-21 13:20] VITALS: BP 129/71; PULSE 78; RESP 14; TEMP 36.3; O2SAT 98
--- NOTE | 2019-10-21 13:22 | P.OP_ITS ---
Operative Report Date of procedure: October 21, 2019 Pre-op Diagnosis: Refractory right distal ureteral stone Post-op diagnosis: same Implants: 6 [place] by 30 cm double-pigtail stent with string attached distally Specimens removed/disposition: 2 small stones Pathology: Stones Surgeon: Can Anesthesia: General Estimated blood loss: None Urine output: Not measured Complications: None Findings: 2 small stones in the right distal ureter. Both removed with grasping forceps without difficulty. 6 [place] by 30 cm double-pigtail stent with string attached distally left in place at the completion of the procedure. Condition: stable Disposition: PACU Brief History: Mr. Capone is a very pleasant 58-year-old white male who was diagnosed 3 days ago with a right distal ureteral stone with severe renal colicky symptoms. CT scan showed the stone in the distal ureter and on follow- up in the clinic it had not progressed. His pain was bad enough that he was having to take hydrocodone on a regular basis post diagnosis. Due to the refractory pain and the lack of progression he elected to proceed with urgent intervention with endoscopy. Procedure: After routine preoperative evaluation examination and obtaining of informed consent he was taken to the operating suite on 10/21/2019 where general anesthesia was administered without difficulty after appropriate timeout was performed, SCDs confirmed to be functioning, preoperative antibiotics administered, beta-dane protocol confirmed. Prepped and draped in usual sterile fashion in dorsolithotomy position pain careful attention to avoiding pressure points. 21 [place] Islander cystoscope with 30 degrees lens was introduced into urethral meatus and advanced into the bladder under videoscopy. Bladder was systematically examined no stones were seen. An 8 [place] cone-tipped catheter was intubated to the right ureteral orifice for right retrograde ureteropyelogram: In the distal ureter a filling defect was identified consistent with the stone. Proximal to that the ureter was dilated. The smaller of the 2 stones could not be easily identified. Flexible tip guidewire was then advanced up the right ureter easily bypassing the stones and curling in the area of the renal pelvis. The distal ureter was then dilated with a 15 [place]er 4 cm balloon to a maximum pressure of 6 john with no waist. Balloon deflated and removed. Wire was secured to the drapes as a safety wire and a 7 [place] offset semirigid ureteroscope was advanced up the right ureter next to the guidewire where the stones were encountered in the expected position and removed with grasping forceps. They did not require fragmentation. Final passage of the scope showed no residual stones. Where the stones had been lodged there was relatively significant edema and for that reason it was decided to leave a stent indwelling. The cystoscope was then backloaded over the safety wire and a 6 [place] by 30 cm double-pigtail stent was advanced over the guidewire through the cystoscope into appropriate position as confirmed via fluoroscopy and cystoscopy. Bladder was drained and the procedure was completed. Tolerated procedure well without complications and was awakened in the operating room and returned to the recovery in stable condition. PLANS: 1. Discharge from outpatient surgery today 2. Try to maintain the stent until 11/01/2019. Can remove himself on that day or come to the office for stent removal via string.
--- NOTE | 2019-10-21 13:22 | W.PM.OPSUD ---
Surgery/Procedure H&P Update DATE OF PROCEDURE: October 21, 2019 DATE H&P PERFORMED: 10/20/19 H&P UPDATE INFORMATION: I have reviewed H&P completed within last 30 days, I have examined patient prior to procedure, No changes to prior documentation and H&P is in [facility] EMR on date indicated PREOP DIAGNOSIS: Right distal ureteral stone PLANNED PROCEDURE: Operation Date: 10/21/19 13:00 Proposed Procedures p Cystoscopy [id number] N13.2(Not Applicable) - Basim North MD s Retrograde Pyelogram(Right) - MD mary ellen Albert Ureteroscopy(Not Applicable) - MD mary ellen Albert Laser Lithotripsy(Not Applicable) - MD mary ellen Albert Ureteral Stent Placement(Not Applicable) - Basim North MD
[2019-10-21 13:34] VITALS: BP 143/75; PULSE 78; RESP 18; O2SAT 94
[2019-10-21 14:05] VITALS: BP 140/90; PULSE 83; RESP 18; O2SAT 91
[2019-10-21] MEDS: ondansetron 2 mg/ML SDV 2 mL 4 MG IVP (14:30)
[2019-10-21] MEDS: HYDROcodone-acetaminophen 7.5-325 mg Tablet 1 TAB PO (15:25)
--- NOTE | 2019-10-21 15:30 | ANE.PACU2 ---
Inpatient post-anesthesia follow up: Airway intact: Yes Vital signs: Temperature 97.4 F Pulse Rate 83 Respiratory Rate 18 Blood Pressure 140/90 Pulse Oximetry 91 Oxygen Delivery Me thod Room Air Oxygen Flow Rate 6 Fraction of Inspir ed Oxygen Hydration adequate: Yes Nausea and vomiting: No Pain level: 2 Mental status: Baseline
== END 2019-10-21 15:34 | disposition home or self-care (01) ==
PROVIDERS: PCP Registered Nurse; Visit Provider Urology
PROC: 0TJB8ZZ Inspection of Bladder, Via Natural or Artificial Opening Endoscopic (ICD-10-PCS; CPT 52000; principal; 2019-10-21 13:00)
PROC: (CPT 74420; 2019-10-21 13:00)
PROC: 0TJ98ZZ Inspection of Ureter, Via Natural or Artificial Opening Endoscopic (ICD-10-PCS; CPT 52351; 2019-10-21 13:00)
PROC: (CPT 50605; 2019-10-21 13:00)
PROC: (CPT 52320; 2019-10-21 13:00)
DX: N20.1 Calculus of ureter (principal); I10 Essential (primary) hypertension; K21.9 Gastro-esophageal reflux disease without esophagitis; E66.01 Morbid (severe) obesity due to excess calories; G47.00 Insomnia, unspecified; Z87.891 Personal history of nicotine dependence
CPT/HCPCS: 52320; 52332; 12345; 76000; 82365; 88300; 96365; C1725; C2625; J1956; J2405; J2704; J2710; J3010; J3490; J7030

== ENCOUNTER 2021-01-18 20:46 | Inpatient (IN) | payer BC, SELFPAY ==
[2021-01-18 21:07] VITALS: BP 154/105; PULSE 103; RESP 18; TEMP 36.4; O2SAT 96; BMI 40.0
--- NOTE | 2021-01-18 23:40 | W.ED.SKABFB ---
Documented by User: ALEXIS Healy 01/22/21 07:03 HPI - Skin/Abscess/Foreign Bdy General: Chief complaint: ER Hold Stated complaint: Brown Recluse bite Time Seen by Provider: 01/18/21 22:53 Source: patient and family Mode of arrival: ambulatory Limitations: no limitations History of Present Illness: HPI narrative: Patient is a nice 60-year-old male who presents to ED today along with his for concerns of a possible spider bite to his left thigh. 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 He states since that time area has progressively worsened and become more red, painful, and warm to touch. He tells me I just don't feel good . He does not have any documented fevers. No history of staph or MRSA. Patient states he has no history of diabetes. PMH significant for obesity, HTN, GERD. MD complaint: abscess/boil Onset (ago): day(s) Tetanus up to date: yes Location: LLE Severity: severe Quality: burning Pain Consistency: constant Relieving factors: none Exacerbating factors: none Associated symptoms: Deny chills, fever(s), nausea or vomiting Treatments prior to arrival: none Review of Systems Const: Reports: change in appetite (decreased appetite) and malaise; Denies: fever(s), chills, body aches or fatigue Card: Denies: chest pain Resp: Denies: dyspnea GI: Denies: abdominal pain, nausea or vomiting Skin/Breast: Reports: new lesions (L thigh) Neuro: Denies: headache(s), numbness in extremities, weakness in extremities or sensory changes [facility] ED PFSH: Medical History Arthritis Chronic low back pain COVID-19 (~09/2019) Diverticulosis GERD (gastroesophageal reflux disease) Hypertension Insomnia Obesity Right distal ureteral calculus Surgical History H/O colectomy History of colon surgery History of colonoscopy History of esophagogastroduodenoscopy (EGD) 02/14/2019 esophagogastroduodenoscopy with biopsy Postop findings: Multiple gastric erosions History of lithotripsy (~10/2019) with ureteral stent Hx of tonsillectomy S/P tonsillectomy Family History Mother Fibromyalgia Anesthesia complication Bleeding disorder Other CAD (coronary artery disease) Crohn's disease Diabetes Hypertension Social History Smoking and tobacco status: never smoked Alcohol intake: never Lives independently: Yes Household members: spouse Marital status: Current occupational status: employed 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 Physical Exam Const: COMMON NORMALS: no acute distress, patient oriented x3, no limitations and alert GENERAL APPEARANCE: cooperative HENMT: COMMON NORMALS: normocephalic and atraumatic HEAD & SCALP: normocephalic and atraumatic Resp: COMMON NORMALS: normal respiratory effort and clear to auscultation bilaterally AUSCULTATION: clear to auscultation bilaterally Cardio: COMMON NORMALS: regular rhythm RATE: tachycardic (mild) RHYTHM: regular rhythm Extremity: NARRATIVE EXTREMITY EXAM: pt has significant erythema, induration, and warmth affecting his L medial thigh; no lymphangitic streaking; no inguinal or perineum involvement; no areas of obvious fluctuance; no drainage Neuro: COMMON NORMALS: patient oriented x3, moves all extremities, no focal motor deficits and no sensory deficits noted SENSORIUM/ORIENTATION: Yes alert Skin: NARRATIVE SKIN EXAM: see extremity assessment for pertinent skin findings Course Consultations: Consultation #1: Dr. Richardson-recommends adding Zosyn and admit to inpatient Vital Signs: Vital signs: Vital Signs Temperature 98.1 F 01/22/21 03:48 Pulse Rate 79 01/22/21 03:48 Respiratory Rate 16 01/22/21 06:14 Blood Pressure 142/74 01/22/21 03:48 Pulse Oximetry 98 01/22/21 03:48 MDM - Skin/Abscess/Foreign Bdy Lab Data: Labs: Lab Results 01/19/21 01/19/21 01/19/21 00:05 00:05 00:05 WBC 15.5 10^3/uL H 10 ^3/uL (4.0-10.0) RBC 5.09 10^6/uL 10^6 /uL (4.1-5.3) Hgb 15.8 g/dL g/dL (11.7-16.6) Hct 48.3 % % (42.0-52.0) MCV 94.9 fl H fl (80-94) MCH 31.0 pg pg (28.0-34.0) MCHC 32.7 g/dL g/dL (30.0-36.0) RDW 13.2 % % (12.1-15.1) Plt Count 311 10^3/cmm 10^3 /cmm (130-400) MPV 8.9 fL fL (7.4-10.4) Neut % (Auto) 81.8 % % Lymph % (Auto) 8.4 % % [place] % (Auto) 8.7 % % Eos % (Auto) 0.3 % % Baso % (Auto) 0.3 % % Neut # (Auto) 12.72 10^3/uL H 1 0^3/uL (1.8-7.7) Lymph # (Auto) 1.3 10^3/uL 10^3/ uL (0.8-4.8) [place] # (Auto) 1.4 10^3/uL H 10^ 3/uL (0.2-0.9) Eos # (Auto) 0.1 10^3/uL 10^3/ uL (0.0-0.8) Baso # (Auto) 0.1 10^3/uL 10^3/ uL (0.0-0.1) Nucleated RBC % (a uto) 0 % % Nucleated RBCs # 0.0 /100WBC /100W BC Sodium 138 mmol/L mmol/L (136-145) Potassium 4.0 mmol/L mmol/L (3.5-5.1) Chloride 99 mmol/L mmol/L (98-107) Carbon Dioxide 23 mmol/L mmol/L (22-29) Anion Gap 20.0 H (5-19) BUN 12 mg/dL mg/dL (8-23) Creatinine 1.0 mg/dL mg/dL (0.7-1.2) GFR Calculation 76.0 mL/min L mL/ min (90-130) Glucose 139 mg/dL H mg/dL (65-115) Calculated Osmolal ity 288 mOsm/kg mOsm/ kg (285-295) Lactic Acid 1.1 mmol/L mmol/L (0.5-2.2) Calcium 9.1 mg/dL mg/dL (8.5-10.5) Total Bilirubin 0.8 mg/dL mg/dL (0.15-1.2) AST 14 U/L U/L (0-40) ALT 19 U/L U/L (0-41) Alkaline Phosphata se 71 IU/L IU/L (40-130) C-Reactive Protein 125.9 mg/L H mg/L (0.0-4.9) Total Protein 7.7 g/dL g/dL (6.6-8.7) Albumin 4.6 g/dL g/dL (3.5-5.2) Globulin 3.1 g/dL g/dL (1.3-4.6) Imaging Data^: CT L thigh: Radiologist's impression: [facility] [address] [address] [address] Scan Report Signed Patient: Maurilio Capone Unit #: [id number] : 1960 Age/Sex: 60 / M ADM Date: 01/18/21 Loc: ER Room/Bed: Attending Dr: Ordering Provider/Ordering MD: Beatriz Huff Date of Service: 01/18/21 Procedure(s): CT femur LT w con [id number] Accession Number(s): [id number] Report Number: [id number] PROCEDURE INFORMATION: Exam: CT Left Lower Extremity With Contrast; Thigh Exam date and time: 01/18/2021 11:39 PM Age: 60 years old Clinical indication: Pain; Cellulitis; Patient HX: Possible insect bite to left inner thigh. Redness and swelling all along medial aspect of left upper leg. ; Additional info: L thigh cellulitis/poss spider bite TECHNIQUE: Imaging protocol: CT of the Left lower extremity with intravenous contrast was performed. Exam focused on the thigh. Radiation optimization: All CT scans at this facility use at least one of these dose optimization techniques: automated exposure control; mA and/or kV adjustment per patient size (includes targeted exams where dose is matched to clinical indication); or iterative reconstruction. Contrast material: OMNI 300; Contrast volume: 95 ml; Contrast route: INTRAVENOUS (IV); COMPARISON: CT kidney stone [id number] 10/18/2019 11:40 AM RADIATION DOSE METRICS: Total DLP (mGy-cm): 2928.18 FINDINGS: Bones/joints: No change in the small herniation pit in the left femoral neck. No acute bony disease. Soft tissues: Extensive stranding and haziness in the anterior and medial subcutaneous fat of the majority of the left thigh; skin thickening overlying much of this area. Mild edema between muscles in the medial aspect of the thigh. No gas bubbles throughout this abnormal region. No apparent enhancement within some elongated branching structures in the subcutaneous fat near the superior aspect of the abnormal region, but probable extension of 1 of the elongated densities to the skin surface; occluded veins suspected. No rounded fluid collection in the subcutaneous fat or the muscles in the abnormal area. Vasculature: Mild prominence of subcutaneous veins in the medial and lateral knee region and medially in the thigh. Patency of the greater saphenous vein. No enlargement of the femoral vein. Lymph nodes: No enlarged inguinal lymph nodes. Bowel: Mild sigmoid diverticulosis. Reproductive: Mild prostatic prominence. CT/CT femur LT w con [id number] IMPRESSION: Cellulitis and possible thrombophlebitis in the left thigh. No apparent abscess. Other findings detailed above. Dictated By: Soco Montiel MD Signed By: Soco Montiel MD Signed Date/Time: 01/19/21222 DD/ 6289 Discharge Plan Discharge Patient Disposition: Admitted As Inpatient Admit Provider: Ban Richardson Clinical Impression: Cellulitis of left thigh, Hypertension Condition: Stable Coding Level of Care Code ED Financial Engineer for Chg Fwd Exam Detailed Documented by User: Mikayla Selby MD 01/19/21 04:31 HPI - Skin/Abscess/Foreign Bdy General: Chief complaint: ER Hold Stated complaint: Brown Recluse bite Time Seen by Provider: 01/18/21 22:53 PFSH ED PFSH: Medical History Arthritis Chronic low back pain COVID-19 (~09/2019) Diverticulosis GERD (gastroesophageal reflux disease) Hypertension Insomnia Obesity Right distal ureteral calculus Surgical History H/O colectomy History of colon surgery History of colonoscopy History of esophagogastroduodenoscopy (EGD) 02/14/2019 esophagogastroduodenoscopy with biopsy Postop findings: Multiple gastric erosions History of lithotripsy (~10/2019) with ureteral stent Hx of tonsillectomy S/P tonsillectomy Family History Mother Fibromyalgia Anesthesia complication Bleeding disorder Other CAD (coronary artery disease) Crohn's disease Diabetes Hypertension Social History Smoking and tobacco status: never smoked Alcohol intake: never Lives independently: Yes Household members: spouse Marital status: Current occupational status: employed 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 Patient has no signs of septic shock. Lab Data: Labs: Lab Results 01/19/21 01/19/21 01/19/21 00:05 00:05 00:05 WBC 15.5 10^3/uL H 10 ^3/uL (4.0-10.0) RBC 5.09 10^6/uL 10^6 /uL (4.1-5.3) Hgb 15.8 g/dL g/dL (11.7-16.6) Hct 48.3 % % (42.0-52.0) MCV 94.9 fl H fl (80-94) MCH 31.0 pg pg (28.0-34.0) MCHC 32.7 g/dL g/dL (30.0-36.0) RDW 13.2 % % (12.1-15.1) Plt Count 311 10^3/cmm 10^3 /cmm (130-400) MPV 8.9 fL fL (7.4-10.4) Neut % (Auto) 81.8 % % Lymph % (Auto) 8.4 % % [place] % (Auto) 8.7 % % Eos % (Auto) 0.3 % % Baso % (Auto) 0.3 % % Neut # (Auto) 12.72 10^3/uL H 1 0^3/uL (1.8-7.7) Lymph # (Auto) 1.3 10^3/uL 10^3/ uL (0.8-4.8) [place] # (Auto) 1.4 10^3/uL H 10^ 3/uL (0.2-0.9) Eos # (Auto) 0.1 10^3/uL 10^3/ uL (0.0-0.8) Baso # (Auto) 0.1 10^3/uL 10^3/ uL (0.0-0.1) Nucleated RBC % (a uto) 0 % % Nucleated RBCs # 0.0 /100WBC /100W BC Sodium 138 mmol/L mmol/L (136-145) Potassium 4.0 mmol/L mmol/L (3.5-5.1) Chloride 99 mmol/L mmol/L (98-107) Carbon Dioxide 23 mmol/L mmol/L (22-29) Anion Gap 20.0 H (5-19) BUN 12 mg/dL mg/dL (8-23) Creatinine 1.0 mg/dL mg/dL (0.7-1.2) GFR Calculation 76.0 mL/min L mL/ min (90-130) Glucose 139 mg/dL H mg/dL (65-115) Calculated Osmolal ity 288 mOsm/kg mOsm/ kg (285-295) Lactic Acid 1.1 mmol/L mmol/L (0.5-2.2) Calcium 9.1 mg/dL mg/dL (8.5-10.5) Total Bilirubin 0.8 mg/dL mg/dL (0.15-1.2) AST 14 U/L U/L (0-40) ALT 19 U/L U/L (0-41) Alkaline Phosphata se 71 IU/L IU/L (40-130) C-Reactive Protein 125.9 mg/L H mg/L (0.0-4.9) Total Protein 7.7 g/dL g/dL (6.6-8.7) Albumin 4.6 g/dL g/dL (3.5-5.2) Globulin 3.1 g/dL g/dL (1.3-4.6) Discharge Plan Discharge Patient Disposition: Admitted As Inpatient Admit Provider: Ban Richardson Clinical Impression: Cellulitis of left thigh, Hypertension Condition: Stable Coding Level of Care Code ED Financial Engineer for [employer] Fwd Exam Detailed
[2021-01-19] VITALS (11 sets, daily range): BP systolic 133–193; BP diastolic 34–106; PULSE 80–92; RESP 14–18; TEMP 36.8; O2SAT 91–98; BMI 40.0
[2021-01-19 00:08] LABS: Basophils # 0.1 10^3/uL (0.0-0.1); Basophils % 0.3 %; Eosinophils # 0.1 10^3/uL (0.0-0.8); Eosinophils % 0.3 %; Hematocrit 48.3 % (42.0-52.0); Hemoglobin 15.8 g/dL (11.7-16.6); Lymphocytes # 1.3 10^3/uL (0.8-4.8); Lymphocytes % 8.4 %; Mean Corpuscular HGB Conc 32.7 g/dL (30.0-36.0); Mean Corpuscular Volume 94.9 fl (80-94); Mean Platelet Volume 8.9 fL (7.4-10.4); Monocytes # 1.4 10^3/uL (0.2-0.9); Monocytes % 8.7 %; Neutrophils # 12.72 10^3/uL (1.8-7.7); Neutrophils % 81.8 %; Nucleated Red Blood Cells % 0 %; Platelet Count 311 10^3/cmm (130-400); Red Blood Count 5.09 10^6/uL (4.1-5.3); Red Cell Distribution Width 13.2 % (12.1-15.1); White Blood Count 15.5 10^3/uL (4.0-10.0)
[2021-01-19] MEDS: ondansetron 2 mg/ML SDV 2 mL 4 MG IVP (00:10)
[2021-01-19] MEDS: amlodipine 10 mg Tablet PO ×2 (00:12→12:03)
[2021-01-19] MEDS: vancomycin 1,000 MG in sodium chloride 0.9% 250 ML 250 MG IV (00:12)
[2021-01-19] MEDS: morphine 4 mg/mL SDV 1 mL IVP ×4 (00:13→21:26)
[2021-01-19] MEDS: sodium chloride 0.9% 1,000 ML 999 ML IV (00:14)
--- NOTE | 2021-01-19 00:24 | PC.NURSE ---
report Called to Maureen at this time Pts GCS is 14 and EMS being called for transport.
[2021-01-19 00:28] LABS: Alanine Aminotransferase 19 U/L (0-41); Albumin Level 4.6 g/dL (3.5-5.2); Alkaline Phosphatase 71 IU/L (40-130); Aspartate Amino Transferase 14 U/L (0-40); Blood Urea Nitrogen 12 mg/dL (8-23); C Reactive Protein 125.9 mg/L (0.0-4.9); Calcium 9.1 mg/dL (8.5-10.5); Carbon Dioxide 23 mmol/L (22-29); Chloride 99 mmol/L (98-107); Globulin 3.1 g/dL (1.3-4.6); Glucose 139 mg/dL (65-115); Osmolality Calculated 288 mOsm/kg (285-295); Sodium 138 mmol/L (136-145); Total Bilirubin 0.8 mg/dL (0.15-1.2); Total Protein 7.7 g/dL (6.6-8.7)
[2021-01-19 00:29] LABS: Lactic Sepsis W/Reflex 1.1 mmol/L (0.5-2.2)
[2021-01-19] MEDS: iohexol 300 mg/mL 100 mL Btl IV (00:42)
[2021-01-19] MEDS: metoprolol tartrate 1 mg/1 mL SDV 5 mL 5 MG IVP (01:51)
[2021-01-19] MEDS: lisinopril 20 mg Tablet PO (01:59)
[2021-01-19] MEDS: piperacillin-tazobactam 3.375 GM in sodium chloride 0.9% (plus) 50 ML IV ×3 (03:01→20:30)
[2021-01-19] MEDS: HYDROmorphone 1 mg/mL INJ 1 mL IVP (04:24)
--- NOTE | 2021-01-19 08:41 | P.HP_ITS ---
Providers/Chief Complaint Admitting Physician: Ban Richardson MD Primary Care Provider: TERESA Adams Chief Complaint: Brown Recluse bite History of Present Illness Maurilio Capone is a 60 year old male who presented to the emergency room with chief complaint of pain and swelling in his left leg. Last week he had an episode in which he was sitting upright and he felt sting-like sensation in his left groin area. He thought he saw some spiders, brown recluse, walking away. 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 He has toughed it out since. At one point he had what looked like a pimple head in the center of the area of swelling. A couple of days ago he popped it. A very small amount of yellowish purulent-looking material came out but no more. It has since scabbed over in the center. Pain began increasing along with in creasing edema and has gotten to the point that he came in for further evaluation. CT imaging did not show any areas of fluid collections. White count was elevated at 15,000 and CRP was noted to be 125. He received a dose of vancomycin and Zosyn and request was made for admission for further care. He has had similar wounds all of which he has attributed to spider bites but they have not been quite this bad before. He has required lancing of a wound one other time. He reports some subjective fevers and generalized aches and pains. No GI symptoms. No change in urine output. Denies any history of diabetes. Review of Systems Const: Reports: fever(s) (Subjective), chills and malaise; Denies: body aches Eyes: Denies: change in vision ENMT: Denies: throat pain or nasal congestion Card: Reports: swelling of feet/ankles; Denies: chest pain or palpitations Resp: Denies: dyspnea, productive cough or non-productive cough GI: Denies: abdominal pain, nausea, vomiting or diarrhea : Denies: oliguria or hematuria Musc: Reports: extremity pain (Left thigh) and extremity swelling (Left thigh) Skin/Breast: Reports: rash (Left thigh in the area of edema) and pruritus Neuro: Reports: headache(s) and difficulty walking (secondary to pain in his thigh); Denies: numbness in extremities, weakness in extremities or sensory changes Endo: Denies: polyuria or polydipsia Jamie/Lymph: Denies: easy bruising or easy bleeding Medications/Allergies Home Medications Medication Instructions Recorded Confirmed Last Taken Type aspirin 81 mg PO DAILY 30 Days #30 tab 09/23/19 08/25/20 10/20/19 Rx ondansetron HCl [Zofran] 4 mg PO Q6H PRN #10 tab 10/18/19 08/25/20 10/20/19 Rx amlodipine 10 mg tablet 10 mg PO DAILY 90 Days #90 tab 08/25/20 08/25/20 Unknown Rx omeprazole 20 mg capsule,delayed 20 mg PO DAILY #90 cap 08/25/20 08/25/20 Unknown Rx release acetaminophen 1,000 mg PO BID 01/19/21 01/19/21 01/17/21 History apixaban [Eliquis] 5 mg PO BID 01/19/21 01/19/21 01/17/21 History lisinopril 20 mg PO DAILY 01/19/21 01/19/21 01/17/21 History Allergies Allergy/AdvReac Type Severity Reaction Status Date / Time meloxicam [From Mobic] Allergy Mild ulcers Verified 08/25/20 09:10 PFSH Acute PFSH: Medical History (Updated 01/19/21 @ 09:31 by Ban Richardson MD) Arthritis Chronic low back pain COVID-19 (~09/2019) Diverticulosis GERD (gastroesophageal reflux disease) Hypertension Insomnia Obesity Right distal ureteral calculus Surgical History (Updated 01/19/21 @ 08:49 by Ban Richardson MD) H/O colectomy History of colon surgery History of colonoscopy History of esophagogastroduodenoscopy (EGD) 02/14/2019 esophagogastroduodenoscopy with biopsy Postop findings: Multiple gastric erosions History of lithotripsy (~10/2019) with ureteral stent Hx of tonsillectomy S/P tonsillectomy Family History Mother Fibromyalgia Anesthesia complication Bleeding disorder Other CAD (coronary artery disease) Crohn's disease Diabetes Hypertension Social History (Updated 01/19/21 @ 08:50 by Ban Richardson MD) Smoking and tobacco status: never smoked Alcohol intake: never Lives independently: Yes Household members: spouse Marital status: Current occupational status: employed 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 Vitals/I&O/Wt Last Vital Signs Temp 97.5 F L 01/18/21 21:07 Pulse 85 01/19/21 05:26 Resp 14 01/19/21 04:24 BP 180/105 01/19/21 05:26 Pulse Ox 93 01/19/21 05:26 01/18/21 01/19/21 01/19/21 22:59 06:59 14:59 Intake Total 1300 / 1300 Balance 1300 / 1300 Weight last 48 hrs Weight 133.81 kg Physical Exam Narrative: EXAM NARRATIVE: Constitutional: Awake and alert, cooperative, uncomfortable with movement HEENT: Normocephalic, atraumatic, extraocular movements intact, mucous membranes dry Neck: Supple Respiratory: Clear to auscultation bilaterally without any rales rhonchi or wheezes Cardiovascular: Regular rate and rhythm, no murmurs Abdomen: Soft, obese, nontender with positive bowel sounds Extremities and skin: Edema in the upper left thigh medially associated with area of erythema and bruising. Not significantly warm to touch compared to surrounding skin. There is a central 3 to 4 mm scabbed area dark in color. Medial to this about an inch is no 1 to 2 mm abrasion. Area is indurated without any fluctuance noted. No drainage from either of these wounds. In the comparable aspect of the pannus that touches the same area, there are 2 similar wounds in terms of location from each other though they are not associated with erythema or induration and look to be more on their way to healing. The left medial thigh is very tender to touch. Area marked at the outer reaches the spread of erythema. Neuro: Speech clear, face symmetric, moves all extremities although movement of left lower extremity lessened Psych: Normal affect Data : 01/19/21 00:05 01/19/21 00:05 Micro: Microbiology 01/19/21 00:02 Blood Culture - Preliminary Blood SPECIMEN COLLECTED 01/19/21 00:05 Blood Culture - Preliminary Blood SPECIMEN COLLECTED A&P Assessment and plan (1) Cellulitis and abscess of left leg: Presumptively from spider bite, area marked, currently indurated without definitive fluctuance. Has significant elevation in CRP at 125.9. Status: Acute (2) Chronic anticoagulation: On external medication records as recently represcribed. Patient is not sure about his medications and does not know why he might be on this medication. Review of available records shows that it was prescribed as a new medication upon discharge from the hospital when he had COVID in September of last year. External medication records only go back to February 2020. Denies any abnormal h eart rhythms, history of blood clots, strokes. Status: Acute (3) Hyperglycemia: Without a history of diabetes Status: Acute (4) Hypertension: Looks to chronically be on amlodipine and lisinopril Status: Chronic Qualifiers: Hypertension type: essential hypertension Qualified Code(s): I10 - Essential (primary) hypertension (5) GERD (gastroesophageal reflux disease): Chronically on PPI Status: Chronic Qualifiers: Esophagitis presence: with esophagitis Qualified Code(s): K21.0 - Gastro-esophageal reflux disease with esophagitis (6) Chronic low back pain: Status: Chronic Qualifiers: Back pain laterality: unspecified Sciatica presence: unspecified whether sciatica present Qualified Code(s): M54.5 - Low back pain; G89.29 - Other chronic pain (7) BMI 40.0-44.9, adult: Status: Acute Additional A&P Information Inpatient admission Vancomycin and Zosyn Blood cultures were collected Recheck CRP tomorrow I have asked surgery to evaluate and follow anticipating potential need for incision and drainage in a day or 2 Hold Eliquis, need to see if we can clarify why he is on this potentially with his Check PT and PTT Check hemoglobin A1c, monitor blood sugars Will continue a dose of lisinopril and amlodipine although will need to adjust once home medications are clarified Continue home PPI Pain control as needed Laxative therapy Currently low risk for VTE secondary to chronic Eliquis, with Eliquis being held as may need incision and drainage or debridement, will initiate SCDs Supportive care otherwise Findings, concerns and plan were discussed with patient and he was given an opportunity to ask questions Anticipate discharge home with outpatient follow-up Full code Attestations Medical Necessity Statement*: Anticipated stay greater than 2 midnights in a patient with large area of cellulitis with induration concerning for developing abscess. On IV antibiotics and home chronic anticoagulation has been held for potential surgical intervention. 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
[2021-01-19] MEDS: pantoprazole DR 40 mg Tablet PO (12:03)
[2021-01-19] MEDS: lisinopril 10 mg Tablet 20 MG PO (12:03)
[2021-01-19] MEDS: vancomycin 1,500 MG/300 ML PIGGYBACK 200 MG IV (12:09)
--- NOTE | 2021-01-19 13:57 | P.CONIM_ITS ---
Providers/Reason For Consult Consulting Physician/Specialty*: Johnnie Cobos MD Reason for Consult*: Left thigh spider Requesting Physician: Dr. Richardson Attending Physician: Celine Ordoñez MD Primary Care Provider: TERESA Adams History of Present Illness History of Present Illness Mr Maurilio Capone is a pleasant 60 year old male with history of spider bite of the left groin for a week or so. Patient presented to the emergency department with worsening pain and swelling associated with redness of the left groin area. Undergone further work-up that showed leukocytosis and a CT scan of the left femur CT scan of left femur shows; Cellulitis and possible thrombophlebitis in the left thigh. No apparent abscess. Other findings detailed above. Patient has history of fevers and body aches General surgery was consulted for further evaluation and potential management. Review of Systems General: Reports: 10 or more systems reviewed and unremarkable except in HPI and below Meds/Allergies Home Medications and Allergies Home Medications Medication Instructions Recorded Confirmed Last Taken Type aspirin 81 mg PO DAILY 30 Days #30 tab 09/23/19 01/19/21 01/17/21 Rx ondansetron HCl [Zofran] 4 mg PO Q6H PRN #10 tab 10/18/19 01/19/21 10/20/19 Rx amlodipine 10 mg tablet 10 mg PO DAILY 90 Days #90 tab 08/25/20 01/19/21 Rx omeprazole 20 mg capsule,delayed 20 mg PO DAILY #90 cap 08/25/20 01/19/21 01/17/21 Rx release acetaminophen 1,000 mg PO BID 01/19/21 01/19/21 01/17/21 History apixaban [Eliquis] 5 mg PO BID 01/19/21 01/19/21 01/17/21 History lisinopril 20 mg PO DAILY 01/19/21 01/19/21 01/17/21 History Allergies Allergy/AdvReac Type Severity Reaction Status Date / Time meloxicam [From Mobic] Allergy Mild ulcers Verified 08/25/20 09:10 Current Medications Current Medications Generic Name Dose Route Start Last Admin Trade Name Freq PRN Reason Stop Dose Admin Amlodipine Besylate 10 mg 01/19/21 10:00 01/19/21 12:03 Amlodipine 10 Mg Tablet PO 10 mg DAILY MEGHNA Administration Vancomycin/PEG/NADA/Lysine/Water 1,500 mg in 300 mls @ 200 mls/hr 01/19/21 11:00 01/19/21 12:09 Vancocin IV 200 mls/hr Q12H MEGHNA Administration Lisinopril 20 mg 01/19/21 10:00 01/19/21 12:03 Lisinopril 10 Mg Tablet PO 20 mg DAILY MEGHNA Administration Morphine Sulfate 4 mg 01/19/21 09:32 01/19/21 12:04 Morphine 4 Mg/Ml Sdv 1 Ml IVP 4 mg Q4H PRN Administration SEVERE PAIN Pantoprazole Sodium 40 mg 01/19/21 09:45 01/19/21 12:[address] 40 Mg Tablet PO 40 mg DAILY MEGHNA Administration PFSH Acute PFSH: Medical History Arthritis Chronic low back pain COVID-19 (~09/2019) Diverticulosis GERD (gastroesophageal reflux disease) Hypertension Insomnia Obesity Right distal ureteral calculus Surgical History H/O colectomy History of colon surgery History of colonoscopy History of esophagogastroduodenoscopy (EGD) 02/14/2019 esophagogastroduodenoscopy with biopsy Postop findings: Multiple gastric erosions History of lithotripsy (~10/2019) with ureteral stent Hx of tonsillectomy S/P tonsillectomy Family History Mother Fibromyalgia Anesthesia complication Bleeding disorder Other CAD (coronary artery disease) Crohn's disease Diabetes Hypertension Social History Smoking and tobacco status: never smoked Alcohol intake: never Lives independently: Yes Household members: spouse Marital status: Current occupational status: employed 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 Vitals/I&O/Wt Last Vital Signs Temp 97.5 F L 01/18/21 21:07 Pulse 80 01/19/21 08:47 Resp 18 01/19/21 12:04 BP 154/89 01/19/21 08:47 Pulse Ox 94 01/19/21 12:04 01/18/21 01/19/21 01/19/21 22:59 06:59 14:59 Intake Total 1300 / 1300 Balance 1300 / 1300 Weight last 48 hrs Weight 295 lb Physical Exam Const: COMMON NORMALS: no acute distress and patient oriented x3 GENERAL APPEARANCE: cooperative ORIENTATION/CONSCIOUSNESS: Yes awake, Yes oriented to person, Yes oriented to place and Yes oriented to time HENMT: COMMON NORMALS: normocephalic HEAD & SCALP: normocephalic Eye: COMMON NORMALS: Equal, round and reactive pupils present and no scleral icterus PUPIL: Yes Equal, round and reactive pupils present Lymph: LYMPHATIC: no lymphadenopathy noted Chest: COMMONS NORMALS: normal inspection of the chest Resp: COMMON NORMALS: normal respiratory effort and clear to auscultation bilaterally AUSCULTATION: clear to auscultation bilaterally Cardio: COMMON NORMALS: S1 normal heart sound present and S2 normal heart kay nd present; negative for No murmurs present (Cardio) HEART SOUNDS: S1 normal heart sound present and S2 normal heart sound present PERIPHERAL PULSES: posterior tibial pulses present positive left GI: COMMON NORMALS: Soft to palpation; negative for No hepatosplenomegaly present INSPECTION: Yes normal to inspection and Yes other (Lower right paramedian scar) PALPATION: Yes Soft to palpation, No Firmness to palpation present (GI), No Tenderness to palpation present (GI), No Guarding due to palpation present (GI), No Rigid due to palpation and No No hepatosplenomegaly present GI image (male): 1. Cellulitis associated with induration over the medial aspect of the left upper thigh, about 25 x 25 cm with associated induration no evidence of sinus discharge at the moment Extremity: NARRATIVE EXTREMITY EXAM: No evidence of compartment syndrome of the left thigh Neuro: COMMON NORMALS: patient oriented x3 SENSORIUM/ORIENTATION: Yes oriented to person, Yes oriented to place and Yes oriented to time Psych: COMMON NORMALS: mental status grossly normal Skin: COMMON NORMALS: no rashes or lesions noted GENERAL SKIN EXAM: no rashes or lesions noted Data Micro: Micro: Microbiology 01/19/21 00:02 Blood Culture - Pr eliminary Blood SPECIMEN [facility] 01/19/21 00:05 Blood Culture - Pr eliminary Blood SPECIMEN [facility] A&P Assessment and plan (1) Cellulitis of left thigh: After thorough history physical examination reviewing the chart and images of the CT scan of the left femur. Appears to have more stranding and inflammatory changes of the left groin likely due to the spider bite. There is no evidence of abscess formation yet. For the time being I do believe the patient would benefit from parenteral antimicrobial therapy and ultimately he will require surgical intervention for excision of skin and subcutaneous necrotic tissues. We will follow the patient closely Pharmacologic DVT prophylaxis Keep n.p.o. after midnight for reevaluation tomorrow Assurance and education All questions have been answered and all concerns have been addressed to patient's satisfaction. Status: Acute Consult Attestations Medical Necessity Statement: Per admitting service Time Spent in Patient Care: 16 - 35 minutes (>than 50% of time spent in counselling and/or direct pt care on unit) . Coding Level of Care Code Acute Dish Carrier for beba Fwd Exam Comprehensive Diagnoses Cellulitis of left thigh L03.116
--- NOTE | 2021-01-19 16:28 | PC.NURSE ---
Report called to floor, given to JANNETTE Lozano
[2021-01-19] MEDS: sodium chlor 0.9% + KCl 20 mEq 20 MEQ/1,000 ML BAG 100 MEQ IV (17:34)
[2021-01-19] MEDS: sennosides 8.6 mg Tablet 17.2 MG PO (21:02)
[2021-01-20] VITALS (9 sets, daily range): BP systolic 123–156; BP diastolic 72–80; PULSE 74–84; RESP 16–20; TEMP 36.4–36.9; O2SAT 90–95
[2021-01-20] MEDS: HYDROcodone-acetaminophen 5-325 mg Tablet 1 TAB PO ×3 (00:29→16:24)
[2021-01-20] MEDS: vancomycin 1,500 MG/300 ML PIGGYBACK 200 MG IV ×2 (00:30→12:28)
[2021-01-20 03:38] LABS: Basophils # 0.1 10^3/uL (0.0-0.1); Basophils % 0.4 %; Eosinophils # 0.4 10^3/uL (0.0-0.8); Eosinophils % 3.4 %; Hematocrit 39.2 % (42.0-52.0); Hemoglobin 12.7 g/dL (11.7-16.6); Lymphocytes # 1.7 10^3/uL (0.8-4.8); Lymphocytes % 13.7 %; Mean Corpuscular HGB Conc 32.4 g/dL (30.0-36.0); Mean Corpuscular Hemoglobin 31.1 pg (28.0-34.0); Mean Corpuscular Volume 95.8 fl (80-94); Monocytes # 1.2 10^3/uL (0.2-0.9); Monocytes % 9.3 %; Neutrophils # 9.09 10^3/uL (1.8-7.7); Neutrophils % 72.6 %; Nucleated Red Blood Cells % 0 %; Platelet Count 271 10^3/cmm (130-400); Red Blood Count 4.09 10^6/uL (4.1-5.3); Red Cell Distribution Width 13.2 % (12.1-15.1); White Blood Count 12.5 10^3/uL (4.0-10.0)
[2021-01-20] MEDS: piperacillin-tazobactam 3.375 GM in sodium chloride 0.9% (plus) 50 ML IV ×3 (03:51→20:48)
[2021-01-20 03:54] LABS: Blood Urea Nitrogen 13 mg/dL (8-23); C Reactive Protein 180.5 mg/L (0.0-4.9); Calcium 8.2 mg/dL (8.5-10.5); Carbon Dioxide 22 mmol/L (22-29); Chloride 102 mmol/L (98-107); Glomerular Filtration Rate 68.1 mL/min (90-130); Glucose 136 mg/dL (65-115); Magnesium 1.9 mg/dL (1.7-2.3); Osmolality Calculated 284 mOsm/kg (285-295); Sodium 136 mmol/L (136-145)
[2021-01-20] MEDS: morphine 4 mg/mL SDV 1 mL IVP ×3 (03:58→19:57)
[2021-01-20 04:00] LABS: Estmated Average Glucose 128; Hemoglobin A1C 6.1 % (4.0-6.0)
[2021-01-20] MEDS: docusate sodium 100 mg Capsule PO (08:06)
[2021-01-20] MEDS: amlodipine 10 mg Tablet PO (08:06)
[2021-01-20] MEDS: pantoprazole DR 40 mg Tablet PO (08:06)
[2021-01-20] MEDS: heparin 5,000 unit/mL INJ 1 mL 5000 UNIT SUBCUT ×2 (10:27→16:25)
[2021-01-20 11:21] LABS: INR 1.13 (0.8-1.2)
[2021-01-20 11:22] LABS: Partial Thromboplastin Time 31.9 SECONDS (23.9-36.7)
--- NOTE | 2021-01-20 11:38 | PC.CHAP ---
Pastoral Care Encounter/Spiritual Assessment Type of Contact [] Declined workforce planner visit [] Patient/Family/Request visit [] Outpatient visit [] Follow-up visit [] Physician referral [] Code/Alert [XX] Routine visit [] Staff referral [] Actively dying [] Patient sleeping [] Family support [] [] Out of room [] Palliative care [] [XX] Receiving care in room [] Pre-surgical visit [] Trauma [] Long length of stay [] ICU visit [XX] Other: spoke with friend/family member in room and she requested that workforce planner return tomorrow Relational/Emotional Strength [] Patient feels connected with others/family/visitors/staff [] Distress [] Loneliness/isolation [] Abandonment Spirituality of Patient [] Person of April [] Attends Sikhism of their April [] Believes in Prayer [] Reads Bible or Zoroastrianism materials [] There are Spiritual issues to be addressed Digital Project Manager Interventions [] Prayer [] Active listening [] Non-anxious presence [] Spiritual/emotional support [] Crisis/trauma care [] Spiritual counseling [] Bereavement support [] Provided bereavement packet [] Provided Bible/devotional materials [] Provided toy/stuffed animal, coloring book to patient or family member [] Provided Communion [] Anointing/[place] [] Salvation [] Completed spiritual assessment [] Other: Impact on Illness or Injury [] Angry [] Fearful [] Anxious [] Often cries [] Exhaustion [] Unable to work [] Unable to attend yazidism [] Unable to walk/stand [] Unable to read [] Unable to drive [] Unable to eat/drink [] Unable to sleep [] Unable to be with family [] Patient intubated [] Other: Summary Time spent with patient
--- NOTE | 2021-01-20 16:14 | P.PN_ITS ---
Subjective Subjective: Interval history: Patient seen and examined this morning. He was also seen by Dr. Cobos this morning. Initially the plan was for possible debridement today but will hold off till tomorrow. Patient complains of a little bit of pain and discomfort around the spider bite site but otherwise is doing okay. He offers no other complaints. Vitals/I&O/Wt Last Vital Signs Temp 97.8 F 01/20/21 15:57 Pulse 79 01/20/21 15:57 Resp 18 01/20/21 15:57 BP 143/76 01/20/21 15:57 Pulse Ox 95 01/20/21 15:57 01/20/21 01/20/21 01/20/21 06:59 14:59 22:59 Intake Total 351.667 / 2088.334 590 / 590 Output Total 460 / 685 1800 / 1800 375 / 2175 Balance -108.333 / 1403.334 -1210 / -1210 -375 / -1585 Weight last 48 hrs Weight 133.81 kg Weight 133.81 kg Physical Exam Narrative: EXAM NARRATIVE: General: Alert oriented x3, patient seen sitting up in bed appearing very comfortable, present at bedside. HEENT: Normocephalic, atraumatic, EOMI, breathing room air. Cardio: Regular rate rhythm, normal S1-S2, no murmurs rubs gallops, Respiratory: Good bilateral air entry, no wheezes no rhonchi appreciated GI: Abdomen soft, nontender, nondistended, bowel sounds + Behavior: Appropriate and cooperative Extremities: no edema, no cyanosis, large area of erythema at left medial thigh area with a clear bite site. Area marked and erythema slightly extending from margins. Please see pictures below. Data : 01/20/21 03:10 01/20/21 03:10 Micro: Microbiology 01/19/21 00:02 Blood Culture - Preliminary Blood NEGATIVE TO DATE 01/19/21 00:05 Blood Culture - Preliminary Blood NEGATIVE TO DATE A&P Assessment and plan (1) Cellulitis and abscess of left leg: Presumptively from spider bite, area marked, currently indurated without definitive fluctuance. Has significant elevation in CRP at 125.9. Status: Acute (2) Chronic anticoagulation: On external medication records as recently represcribed. Patient is not sure about his medications and does not know why he might be on this medication. Review of available records shows that it was prescribed as a new medication upon discharge from the hospital when he had COVID in September of last year. E xternal medication records only go back to February 2020. Denies any abnormal heart rhythms, history of blood clots, strokes. Status: Acute (3) Hyperglycemia: Without a history of diabetes Status: Acute (4) Hypertension: Looks to chronically be on amlodipine and lisinopril Status: Chronic Qualifiers: Hypertension type: essential hypertension Qualified Code(s): I10 - Essential (primary) hypertension (5) GERD (gastroesophageal reflux disease): Chronically on PPI Status: Chronic Qualifiers: Esophagitis presence: with esophagitis Qualified Code(s): K21.0 - Gastro-esophageal reflux disease with esophagitis (6) Chronic low back pain: Status: Chronic Qualifiers: Back pain laterality: unspecified Sciatica presence: unspecified whether sciatica present Qualified Code(s): M54.5 - Low back pain; G89.29 - Other chronic pain (7) BMI 40.0-44.9, adult: Status: Acute Additional A&P Information Continue vancomycin and Zosyn. WBC count 12,000 today. Blood cultures were collected General surgery on board. Potentially patient will go for incision and drainage in the morning. We will keep him n.p.o. at midnight. Hold Eliquis, need to see if we can clarify why he is on this potentially with his Check hemoglobin A1c, monitor blood sugars Will continue a dose of lisinopril and amlodipine. I discussed with patient and he is on lisinopril 1020 mg a day and amlodipine 10 mg a day. Continue home PPI Pain control as needed Laxative therapy Currently low risk for VTE secondary to chronic Eliquis, with Eliquis being held as may need incision and drainage or debridement, will initiate SCDs DVT prophylaxis has been added with heparin. Full code Attestations Medical Necessity Statement*: Greater than 48-hour stay. Coding Level of Care Code Acute Clothes Presser for Rolan Alvarez Diagnoses Cellulitis and abscess of left leg L03.116; L02.416 Chronic anticoagulation Z79.01 Hyperglycemia R73.9 Hypertension I10 Hypertension type: essential hypertension GERD (gastroesophageal reflux disease) K21.0 Esophagitis presence: with esophagitis Chronic low back pain M54.5; G89.29 Back pain laterality: unspecified Sciatica presence: unspecified whether sciatica present BMI 40.0-44.9, adult Z68.41
[2021-01-20] MEDS: sennosides 8.6 mg Tablet 17.2 MG PO (20:48)
[2021-01-20] MEDS: sodium chlor 0.9% + KCl 20 mEq 20 MEQ/1,000 ML BAG 100 MEQ IV (20:48)
[2021-01-21] VITALS (21 sets, daily range): BP systolic 138–176; BP diastolic 71–102; PULSE 71–90; RESP 14–22; TEMP 36.2–37.1; O2SAT 91–98
[2021-01-21] MEDS: vancomycin 1,500 MG/300 ML PIGGYBACK 200 MG IV ×3 (00:33→22:49)
[2021-01-21] MEDS: heparin 5,000 unit/mL INJ 1 mL 5000 UNIT SUBCUT ×3 (00:39→15:14)
[2021-01-21] MEDS: HYDROcodone-acetaminophen 5-325 mg Tablet 1 TAB PO ×5 (00:40→23:00)
[2021-01-21] MEDS: piperacillin-tazobactam 3.375 GM in sodium chloride 0.9% (plus) 50 ML IV ×2 (06:47→14:17)
--- NOTE | 2021-01-21 07:07 | PM.PN ---
Subjective Subjective: Interval history: Patient started to experience drainage from the left thigh abscess, patient was monitored clinically and was seen by me yesterday through the day and my impression is to plan for surgery today in the form of I&D. To allow the antimicrobial therapy to help with the cellulitis which did decrease over the course of hospitalization Medications: Reviewed: Yes Vitals/I&O/Wt Last Vital Signs Temp 98.1 F 01/21/21 04:47 Pulse 73 01/21/21 04:47 Resp 17 01/21/21 04:47 BP 155/84 01/21/21 04:47 Pulse Ox 96 01/21/21 04:47 01/20/21 01/21/21 01/21/21 22:59 06:59 14:59 Intake Total 312.5 / 902.5 827.5 / 1730.0 Output Total 1575 / 3375 750 / 4125 Balance -1262.5 / -2472.5 77.5 / -2395.0 Weight last 48 hrs Weight 295 lb Physical Exam Narrative: EXAM NARRATIVE: Patient is conscious alert oriented X3 BMI 40 Head and neck examination PERRLA no masses no cervical lymphadenopathy no jaundice Abdomen nontender nondistended soft no organomegaly guarding or rigidity/no signs of peritonitis Extremities no cyanosis no clubbing no edema Cellulitic changes occupying the medial aspect of the left thigh which looks better than at admission. Indurated area is less in size with sinuses draining pus. No signs of compartment syndrome of the left thigh Data : 01/20/21 03:10 01/20/21 03:10 A&P Assessment and plan (1) Cellulitis of left thigh: We'll plan to take the patient for incision and drainage of left thigh abscess today in the OR She understands the potential risks, indications, benefits and alternatives, and also understands the potential need for future surgical interventions. Informed consent per chart Patient was educated on the long-term wound care and recommendation to follow-up at the wound care center on weekly basis. Management of obesity and medical comorbidities optimization Continue pharmacologic DVT prophylaxis Assurance and education All questions have been answered and all concerns have been addressed to patient's satisfaction. Status: Acute Attestations Medical Necessity Statement*: Anticipated stay greater than 2 midnights in a patient with large area of cellulitis and abscess formation. On IV antibiotics. Time Spent in Patient Care: 16 - 35 minutes (>than 50% of time spent in counselling and/or direct pt care on unit). Coding Level of Care Code Acute Unit Assistant for Adriáng Fwd Diagnoses Cellulitis of left thigh L03.116
--- NOTE | 2021-01-21 07:44 | ANES.PREANE2 ---
Pre-Anesthetic Assessment Pre-Anesthetic Assessment: Height/Weight: Height 1.83 m Weight 133.81 kg Temp Pulse Resp BP Pulse Ox 98.1 F 73 17 155/84 96 01/21/21 04:47 01/21/21 04:47 01/21/21 04:47 01/21/21 04:47 01/21/21 04:47 Preop Diagnosis: Refractory right distal ureteral stone Proposed Procedure: Operation Date: 01/21/21 08:25 Proposed Procedures p Incision And Drainage Thigh Abscess(Left) - Johnnie Cobos MD Familial anesthetic complications: none Was Beta Chica taken within 24 hours: N/A Was Clonidine taken within 24 hours: N/A Last intake: Intake Last Liquid Date 01/20/21 Last Liquid Time 23:59 Last Solid Date 01/20/21 Last Solid Time 22:48 Social: Social History: No alcohol and No tobacco Exam: Pre-Anes Outpt Exam: alert, oriented x 3, clear to auscultation bilaterally and regular rate & rhythm Airway: MP: 3 Dentition: Other (poor dentition, multiple missing teeth) CV/HEM: CV/HEM: DVT and HTN GI: GI: GERD Metabolic: Metabolic: Morbid obesity Musc/skel: Musc/skel: Lower Back Pain Meds/Allergies Current Medications: Current Medications Generic Name Dose Route Start Last Admin Trade Name Freq PRN Reason Stop Dose Admin Hydrocodone Bitart /Acetaminophen 1 tab 01/19/21 09:32 01/21/21 04:13 Hydrocodone-Acet aminophen 5-325 Mg Tablet PO 1 tab Q4H PRN Administration MODERATE TO SEVER E PAIN Amlodipine Besylat e 10 mg 01/19/21 10:00 01/20/21 08:06 Amlodipine 10 Mg Tablet PO 10 mg DAILY MEGHNA Administration Docusate Sodium 100 mg 01/19/21 18:00 01/20/21 16:25 Docusate Sodium 100 Mg Capsule PO Not Given BID MEGHNA Heparin Sodium (Po rcine) 5,000 unit 01/20/21 08:15 01/21/21 00:39 Heparin 5,000 Un it/Ml Inj 1 Ml SUBCUT 5,000 unit Q8H MEGHNA Administration Potassium Chloride /Sodium Chloride 20 meq in 1,000 m ls @ 100 mls/hr 01/19/21 09:45 01/21/21 06:51 Sodium Chlor 0.9 % + Kcl 20 Meq IV 100 mls/hr .Q10H MEGHNA Infusion Vancomycin/PEG/NAD A/Lysine/Water 1,500 mg in 300 m ls @ 200 mls/hr 01/19/21 11:00 01/21/21 02:39 Vancocin IV Infused Q12H MEGHNA Infusion Piperacillin Sod/T azobactam 50 mls @ 12.5 mls /hr 01/19/21 12:30 01/21/21 06:47 Sod 3.375 gm/ So dium Chloride IV 12.5 mls/hr Q8H MEGHNA Administration Lisinopril 20 mg 01/19/21 10:00 01/19/21 12:03 Lisinopril 10 Mg Tablet PO 20 mg DAILY MEGHNA Administration Morphine Sulfate 4 mg 01/19/21 09:32 01/20/21 19:57 Morphine 4 Mg/Ml Sdv 1 Ml IVP 4 mg Q4H PRN Administration SEVERE PAIN Pantoprazole Sodiu m 40 mg 01/19/21 09:45 01/20/21 08:[address] 40 Mg Tablet PO 40 mg DAILY MEGHNA Administration Senna 17.2 mg 01/19/21 21:00 01/20/21 20:48 Sennosides 8.6 M g Tablet PO 17.2 mg BEDTIME MEGHNA Administration PFSH Anesthesia PFSH: Medical History Arthritis Chronic low back pain COVID-19 (~09/2019) Diverticulosis GERD (gastroesophageal reflux disease) Hypertension Insomnia Obesity Right distal ureteral calculus Surgical History H/O colectomy History of colon surgery History of colonoscopy History of esophagogastroduodenoscopy (EGD) 02/14/2019 esophagogastroduodenoscopy with biopsy Postop findings: Multiple gastric erosions History of lithotripsy (~10/2019) with ureteral stent Hx of tonsillectomy S/P tonsillectomy Family History Mother Fibromyalgia Anesthesia complication Bleeding disorder Other CAD (coronary artery disease) Crohn's disease Diabetes Hypertension Social History Smoking and tobacco status: never smoked Alcohol intake: never Lives independently: Yes Household members: spouse Marital status: Current occupational status: employed 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 Data Anesthesia CBC & Chem 7: 01/20/21 03:10 01/20/21 03:10 Other Labs: Laboratory Results - last 48 hr 01/20/21 01/20/21 01/20/21 03:10 03:10 03:10 WBC 12.5 H RBC 4.09 L Hgb 12.7 Hct 39.2 L MCV 95.8 H MCH 31.1 MCHC 32.4 RDW 13.2 Plt Count 271 MPV 9.0 Neut % (Auto) 72.6 Lymph % (Auto) 13.7 [place] % (Auto) 9.3 Eos % (Auto) 3.4 Baso % (Auto) 0.4 Neut # (Auto) 9.09 H Lymph # (Auto) 1.7 [place] # (Auto) 1.2 H Eos # (Auto) 0.4 Baso # (Auto) 0.1 Nucleated RBC % (auto) 0 Nucleated RBCs # 0.0 PT INR APTT Sodium 136 Potassium 4.0 Chloride 102 Carbon Dioxide 22 Anion Gap 16.0 BUN 13 Creatinine 1.1 GFR Calculation 68.1 L Glucose 136 H Estimat Average Glucose 128 Hemoglobin A1c 6.1 H Calculated Osmolality 284 L Calcium 8.2 L Magnesium 1.9 C-Reactive Protein 180.5 H 01/20/21 10:45 WBC RBC Hgb Hct MCV MCH MCHC RDW Plt Count MPV Neut % (Auto) Lymph % (Auto) [place] % (Auto) Eos % (Auto) Baso % (Auto) Neut # (Auto) Lymph # (Auto) [place] # (Auto) Eos # (Auto) Baso # (Auto) Nucleated RBC % (auto) Nucleated RBCs # PT 14.80 INR 1.13 APTT 31.9 Sodium Potassium Chloride Carbon Dioxide Anion Gap BUN Creatinine GFR Calculation Glucose Estimat Average Glucose Hemoglobin A1c Calculated Osmolality Calcium Magnesium C-Reactive Protein Cardiac Studies: No Data to Display
[2021-01-21] MEDS: sodium chloride 0.9% 1,000 ML 30 ML IV (07:55)
[2021-01-21] MEDS: lidocaine 2% INJ 20 mL INJECTION (08:50)
--- NOTE | 2021-01-21 08:57 | PM.OP ---
Operative Report Date of procedure: January 21, 2021 Pre-op Diagnosis: Left thigh abscess Post-op diagnosis: other (Left thigh abscess and remarkable necrosis of subcutaneous tissues of the left thigh) Procedure Done: 1-Incision and drainage of left thigh abscess 2-Excision of left thigh inflammatory mass 3-Sharp debridement of abscess cavity Implants: Large pieces of Surgicel x2 followed by packing with Kerlix soaked in lidocaine 2% Specimens removed/disposition: Tissues for cultures and sensitivities Left thigh inflammatory mass measures 17 x 10 x 3 cm short sutures marked superior and long sutures marked lateral Surgeon: Johnnie Cobos Physician Non Invasive Cardiologist: Surgical cata Navarro Circulating nurse Caitlin Anesthesia: General ([employer] CLERK Lg) Estimated blood loss (mL): 100 IV fluids (mL): 800 Condition: stable Disposition: floor Procedure: After identifying the patient holding area,patient was then taken to the operative suite,was placed in supine position then was intubated by the anesthesia provider following that patient was placed in a frog leg position, all pressure points were padded and patient was appropriately secured to the bed., IV antibiotics were given per protocol, prep and drape of the left thigh region was done under the usual sterile technique. Time-out was done verifying the patient's name/date of /planned procedure and destination after the procedure, all were in agreement. Started by excising a large indurated inflammatory mass including 2 central abscess with draining sinuses, is about 17 x 10 x 3 cm including skin and subcutaneous layer the mass was then oriented in the form of short sutures superior and long sutures lateral. Incision and drainage of other concomitant pockets draining mostly necrotic subcutaneous tissues. Minimal purulent discharge at the skin level, dissection from the wound bed using harmonic scalpel hand-held to help with hemostasis. Sharp debridement was done down to the wound cavity of all residual necrotic tissues. Tissues were sent for cultures and sensitivities from the wound PostDebridement measurements 16 x 9 x [address] to the subcutaneous layer Copious and extensive irrigation of the wound was done using a liter of Vashe solution followed by 3 L of Pulsavac warm saline, followed by appropriate hemostasis using Bovie cauterization that was completed by placement of 2 pieces of Surgicel, packing of the wound was done with Kerlix impregnated with lidocaine 2%, followed by ABDs, Kerlix and 8 inches Nader wrap. Patient tolerated the procedure well, count of instruments, needles and sponges were completed at the end of the procedure. Patient was then extubated and then taken to the recovery area in stable condition. I was present for the whole entire procedure Recommendations after surgery Patient does have complex left thigh wound that would require hospitalization passing 2 midnights and local wound care with pain control Follow on cultures and sensitivities Follow-up at the wound care center on weekly basis due to wound complexity
[2021-01-21] MEDS: fentaNYL 50 mcg/mL INJ 2mL IVP (09:13)
[2021-01-21] MEDS: ondansetron 2 mg/ML SDV 2 mL 4 MG IVP (09:34)
[2021-01-21] MEDS: docusate sodium 100 mg Capsule PO (10:40)
[2021-01-21] MEDS: amlodipine 10 mg Tablet PO (10:40)
[2021-01-21] MEDS: pantoprazole DR 40 mg Tablet PO (10:40)
[2021-01-21] MEDS: sodium chlor 0.9% + KCl 20 mEq 20 MEQ/1,000 ML BAG 100 MEQ IV (11:15)
--- NOTE | 2021-01-21 12:29 | PC.CHAP ---
Pastoral Care Encounter/Spiritual Assessment Type of Contact [] Declined communication center operator visit [] Patient/Family/Request visit [] Outpatient visit [XX] Follow-up visit [] Physician referral [] Code/Alert [XX] Routine visit [] Staff referral [] Actively dying [] Patient sleeping [] Family support [] [] Out of room [] Palliative care [] [] Receiving care in room [] Pre-surgical visit [] Trauma [] Long length of stay [] ICU visit [XX] Other: Pt had returned from surgery and said that he was too groggy to visit. Asked communication center operator to return later. Relational/Emotional Strength [] Patient feels connected with others/family/visitors/staff [] Distress [] Loneliness/isolation [] Abandonment Spirituality of Patient [] Person of April [] Attends Bahai of their April [] Believes in Prayer [] Reads Bible or Gnosticism materials [] There are Spiritual issues to be addressed Gastroenterology Physician Interventions [] Prayer [] Active listening [] Non-anxious presence [] Spiritual/emotional support [] Crisis/trauma care [] Spiritual counseling [] Bereavement support [] Provided bereavement packet [] Provided Bible/devotional materials [] Provided toy/stuffed animal, coloring book to patient or family member [] Provided Communion [] Anointing/[place] [] Salvation [] Completed spiritual assessment [] Other: Impact on Illness or Injury [] Angry [] Fearful [] Anxious [] Often cries [] Exhaustion [] Unable to work [] Unable to attend church [] Unable to walk/stand [] Unable to read [] Unable to drive [] Unable to eat/drink [] Unable to sleep [] Unable to be with family [] Patient intubated [] Other: Summary Time spent with patient
[2021-01-21] MEDS: morphine 4 mg/mL SDV 1 mL IVP ×2 (12:34→19:28)
--- NOTE | 2021-01-21 14:29 | P.PN_ITS ---
Subjective Subjective: Interval history: Seen postop seen postop this morning Patient resting comfortably in bed does not offer any complaints. Large area was debrided. See operative notes. Cultures were sent. Vitals/I&O/Wt Last Vital Signs Temp 98.8 F 01/21/21 10:20 Pulse 90 01/21/21 12:28 Resp 16 01/21/21 12:34 BP 142/82 01/21/21 12:28 Pulse Ox 91 01/21/21 12:28 01/20/21 01/21/21 01/21/21 22:59 06:59 14:59 Intake Total 312.5 / 902.5 827.5 / 1730.0 2270 / 2270 Output Total 1575 / 3375 750 / 4125 100 / 100 Balance -1262.5 / -2472.5 77.5 / -2395.0 2170 / 2170 Weight last 48 hrs Weight 133.81 kg Physical Exam 2 Narrative: EXAM NARRATIVE: General: Alert oriented x3, patient seen sitting up in bed appearing very comfortable HEENT: Normocephalic, atraumatic, EOMI, breathing room air. Cardio: Regular rate rhythm, normal S1-S2, no murmurs rubs gallops, Respiratory: Good bilateral air entry, no wheezes no rhonchi appreciated GI: Abdomen soft, nontender, nondistended, bowel sounds + Behavior: Appropriate and cooperative Extremities: Left is wrapped with Kerlix Band-Aid. I saw him postop. I will defer opening the bandage today. Will reassess tomorrow. Data : 01/20/21 03:10 01/20/21 03:10 Micro: Microbiology 01/21/21 08:26 Gram Stain - Final Leg - #1 A&P Assessment and plan (1) Cellulitis and abscess of left leg: Presumptively from spider bite, area marked, currently indurated without definitive fluctuance. Has significant elevation in CRP at 125.9. s/p debridement Status: Acute (2) Chronic anticoagulation: On external medication records as recently represcribed. Patient is not sure about his medications and does not know why he might be on this medication. Review of available records shows that it was prescribed as a new medication upon discharge from the hospital when he had COVID in September of last year. External medication records only go back to February 2020. Denies any abnormal heart rhythms, history of blood clots, strokes. Status: Acute (3) Hyperglycemia: Without a history of diabetes Status: Acute (4) Hypertension: Looks to chronically be on amlodipine and lisinopril Status: Chronic Qualifiers: Hypertension type: essential hypertension Qualified Code(s): I10 - Essential (primary) hypertension (5) GERD (gastroesophageal reflux disease): Chronically on PPI Status: Chronic Qualifiers: Esophagitis presence: with esophagitis Qualified Code(s): K21.0 - Gastro-esophageal reflux disease with esophagitis (6) Chronic low back pain: Status: Chronic Qualifiers: Back pain laterality: unspecified Sciatica presence: unspecified whether sciatica present Qualified Code(s): M54.5 - Low back pain; G89.29 - Other chronic pain (7) BMI 40.0-44.9, adult: Status: Acute Additional A&P Information Continue vancomycin and Zosyn. Blood cultures were collected General surgery on board. Patient is status post debridement. ?Cultures have been sent Restart Maria Victoria in a.m. need to see if we can clarify why he is on this potentially with his hemoglobin A1c 6.1, monitor blood sugars Will continue a dose of lisinopril and amlodipine. I discussed with patient and he is on lisinopril 20 mg a day and amlodipine 10 mg a day. Continue home PPI Pain control as needed Laxative therapy PT/OT d/c IV fluids DVT prophylaxis has been added with heparin. Full code Attestations Medical Necessity Statement*: >48 hrs Coding Level of Care Code Acute Bookbinding Machine Operator for [facility] Diagnoses Cellulitis and abscess of left leg L03.116; L02.416 Chronic anticoagulation Z79.01 Hyperglycemia R73.9 Hypertension I10 Hypertension type: essential hypertension GERD (gastroesophageal reflux disease) K21.0 Esophagitis presence: with esophagitis Chronic low back pain M54.5; G89.29 Back pain laterality: unspecified Sciatica presence: unspecified whether sciatica present BMI 40.0-44.9, adult Z68.41
[2021-01-21] MEDS: lactulose oral liq 20 gm/30 mL UDC PO (15:14)
[2021-01-21] MEDS: sennosides 8.6 mg Tablet 17.2 MG PO (21:04)
[2021-01-21 22:24] LABS: Vancomycin Trough 11.6 ug/mL (10-15)
[2021-01-22] VITALS (8 sets, daily range): BP systolic 128–142; BP diastolic 71–82; PULSE 65–79; RESP 16–18; TEMP 36.7–37.1; O2SAT 93–98
[2021-01-22] MEDS: piperacillin-tazobactam 3.375 GM in sodium chloride 0.9% (plus) 50 ML IV ×3 (00:30→14:20)
[2021-01-22] MEDS: heparin 5,000 unit/mL INJ 1 mL 5000 UNIT SUBCUT ×3 (00:31→15:31)
[2021-01-22 04:25] LABS: Basophils % 0.3 %; Hematocrit 36.6 % (42.0-52.0); Hemoglobin 12.1 g/dL (11.7-16.6); Lymphocytes # 0.8 10^3/uL (0.8-4.8); Lymphocytes % 7.6 %; Mean Corpuscular HGB Conc 33.1 g/dL (30.0-36.0); Mean Corpuscular Hemoglobin 31.3 pg (28.0-34.0); Mean Corpuscular Volume 94.6 fl (80-94); Mean Platelet Volume 9.6 fL (7.4-10.4); Monocytes # 0.6 10^3/uL (0.2-0.9); Monocytes % 5.8 %; Neutrophils # 9.41 10^3/uL (1.8-7.7); Neutrophils % 85.6 %; Nucleated Red Blood Cells % 0 %; Platelet Count 301 10^3/cmm (130-400); Red Blood Count 3.87 10^6/uL (4.1-5.3); Red Cell Distribution Width 12.8 % (12.1-15.1)
[2021-01-22 04:45] LABS: Anion Gap 16.3 (5-19); Blood Urea Nitrogen 13 mg/dL (8-23); Calcium 8.3 mg/dL (8.5-10.5); Carbon Dioxide 22 mmol/L (22-29); Chloride 105 mmol/L (98-107); Glomerular Filtration Rate 85.8 mL/min (90-130); Glucose 209 mg/dL (65-115); Osmolality Calculated 294 mOsm/kg (285-295); Potassium 4.3 mmol/L (3.5-5.1); Sodium 139 mmol/L (136-145)
[2021-01-22] MEDS: morphine 4 mg/mL SDV 1 mL IVP ×3 (06:14→21:46)
[2021-01-22] MEDS: amlodipine 10 mg Tablet PO (08:44)
[2021-01-22] MEDS: lisinopril 10 mg Tablet 20 MG PO (08:44)
[2021-01-22] MEDS: pantoprazole DR 40 mg Tablet PO (08:44)
[2021-01-22] MEDS: HYDROcodone-acetaminophen 5-325 mg Tablet 1 TAB PO ×3 (08:45→18:54)
--- NOTE | 2021-01-22 10:30 | PC.OT ---
PER P.T.; PATIENT IS INDEPENDENT AND NO THERAPY REQUIRED AT THIS TIME.
[2021-01-22] MEDS: vancomycin 1,500 MG/300 ML PIGGYBACK 200 MG IV ×2 (10:48→22:40)
--- NOTE | 2021-01-22 13:39 | PM.PN ---
Subjective Subjective: Interval history: Patient overall feels well Medications: Reviewed: Yes Vitals/I&O/Wt Last Vital Signs Temp 98.5 F 01/22/21 11:27 Pulse 72 01/22/21 11:27 Resp 16 01/22/21 11:27 BP 133/81 01/22/21 11:27 Pulse Ox 96 01/22/21 11:27 01/21/21 01/22/21 01/22/21 22:59 06:59 14:59 Intake Total 1050 / 3320 1790 / 5110 590 / 590 Output Total 1350 / 1700 830 / 2530 750 / 750 Balance -300 / 1620 960 / 2580 -160 / -160 Physical Exam Narrative: EXAM NARRATIVE: Patient is conscious alert oriented X3 BMI 40 Head and neck examination PERRLA no masses no cervical lymphadenopathy no jaundice Abdomen nontender nondistended soft no organomegaly guarding or rigidity/no signs of peritonitis Left thigh wound bed is clean and no residual necrotic tissues, cellulitic changes feeding. Packing was done by me bedside. Data : 01/22/21 03:39 01/22/21 03:39 Micro: Microbiology 01/21/21 08:26 Gram Stain - Final Leg - #1 Tissue Culture - Preliminary Staphylococcus aureus A&P Assessment and plan (1) Open wound of left thigh: Assessment 60 years old gentleman undergone I&D of left thigh abscess 01/21/2021 Plan 1-nutrition optimization 2-wound care in the form of daily packing with wet-to-dry using Kerlix followed by ABDs 3-management of medical comorbidities per hospitalist service 4-physical therapy consultation when needed 5-assurance and education Due to patient's wound complexity will require to follow-up with wound care center on weekly basis for local wound care All questions have been answered and all concerns have been addressed to patient's satisfaction. Status: Acute Attestations Medical Necessity Statement*: Per admitting service Time Spent in Patient Care: 16 - 35 minutes (>than 50% of time spent in counselling and/or direct pt care on unit). Coding Level of Care Code Acute Meter Supervisor for [facility] Diagnoses Open wound of left thigh S71.102A
[2021-01-22] MEDS: lactulose oral liq 20 gm/30 mL UDC PO (14:20)
--- NOTE | 2021-01-22 15:54 | P.PN_ITS ---
Subjective Subjective: Interval history: Patient was feeling fine today, able to move his left leg, dressing changed by Dr. Cobos, a picture was shared with me via [employer] phone application during dressing change Patient is afebrile, leukocytosis 11,000, he is endorsing feeling better we are waiting for culture and sensitivity report Continue broad-spectrum antibiotics for now Vitals/I&O/Wt Last Vital Signs Temp 98.7 F 01/22/21 15:32 Pulse 68 01/22/21 15:32 Resp 16 01/22/21 15:32 BP 131/82 01/22/21 15:32 Pulse Ox 96 01/22/21 15:32 01/22/21 01/22/21 01/22/21 06:59 14:59 22:59 Intake Total 1790 / 5110 710 / 710 Output Total 830 / 2530 750 / 750 Balance 960 / 2580 -40 / -40 Physical Exam Narrative: EXAM NARRATIVE: Patient is lying comfortably Awake alert Saturating well on room air S1, S2 Abdomen soft distended visceral obesity No audible stridor or wheezing Left thigh wound without any purulence, good granulation tissue noted during dressing change 17 x 10 x 13 cm, clean base without any necrotic tissue Data : 01/22/21 03:39 01/22/21 03:39 Micro: Microbiology 01/21/21 08:26 Gram Stain - Final Leg - #1 Tissue Culture - Preliminary Staphylococcus aureus A&P Assessment and plan (1) Open wound of left thigh: Status: Acute (2) Hyperglycemia: Status: Acute (3) Chronic anticoagulation: Status: Acute (4) Chronic low back pain: Status: Chronic Qualifiers: Back pain laterality: unspecified Sciatica presence: unspecified whether sciatica present Qualified Code(s): M54.5 - Low back pain; G89.29 - Other chronic pain (5) BMI 40.0-44.9, adult: Status: Acute (6) Cellulitis and abscess of left leg: Status: Acute Additional A&P Information Cellulitis and abscess of left leg Status post debridement Staph aureus Sensitivity pending, discontinue Zosyn, continue vancomycin Check procalcitonin tomorrow No fever or worsening of leukocytosis 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 most likely this is related to previous episode of DVT however patient is not completely sure I would resume his Eliquis today Consistent carb diet: HbA1c 6.1, add Lantus to moderate dose sliding scale Hypertension: Currently on lisinopril and amlodipine Consistent carb diet Bowel regimen with analgesia Attestations Medical Necessity Statement*: Anticipating discharge tomorrow after culture and sensitivity results Time Spent in Patient Care: 16 - 35 minutes Coding Level of Care Code Acute 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
[2021-01-22] MEDS: apixaban 5 mg Tablet PO (17:44)
[2021-01-22 18:05] LABS: Glucose Point of Care 173 mg/dL (70-110)
[2021-01-22 20:52] LABS: Glucose Point of Care 230 mg/dL (70-110)
[2021-01-22] MEDS: insulin glargine 100 units/1 mL 10 UNIT SUBCUT (21:38)
[2021-01-22] MEDS: sennosides 8.6 mg Tablet 17.2 MG PO (21:38)
[2021-01-23] VITALS: BP 132/80; PULSE 64; RESP 18; TEMP 36.7; O2SAT 95
[2021-01-23] MEDS: HYDROcodone-acetaminophen 5-325 mg Tablet 1 TAB PO ×2 (02:13→11:36)
[2021-01-23] MEDS: lactulose oral liq 20 gm/30 mL UDC PO (02:13)
[2021-01-23 02:21] LABS: Basophils # 0.1 10^3/uL (0.0-0.1); Basophils % 1.2 %; Eosinophils # 0.3 10^3/uL (0.0-0.8); Eosinophils % 3.5 %; Hematocrit 38.5 % (42.0-52.0); Hemoglobin 12.6 g/dL (11.7-16.6); Lymphocytes # 2.1 10^3/uL (0.8-4.8); Mean Corpuscular HGB Conc 32.7 g/dL (30.0-36.0); Mean Corpuscular Hemoglobin 31.3 pg (28.0-34.0); Mean Corpuscular Volume 95.5 fl (80-94); Monocytes # 0.7 10^3/uL (0.2-0.9); Monocytes % 7.2 %; Neutrophils # 6.04 10^3/uL (1.8-7.7); Neutrophils % 63.9 %; Nucleated Red Blood Cells % 0 %; Platelet Count 296 10^3/cmm (130-400); Red Blood Count 4.03 10^6/uL (4.1-5.3); Red Cell Distribution Width 13.1 % (12.1-15.1); White Blood Count 9.5 10^3/uL (4.0-10.0)
[2021-01-23 02:50] LABS: Blood Urea Nitrogen 17 mg/dL (8-23); Calcium 8.2 mg/dL (8.5-10.5); Carbon Dioxide 21 mmol/L (22-29); Chloride 108 mmol/L (98-107); Glomerular Filtration Rate 85.8 mL/min (90-130); Glucose 159 mg/dL (65-115); Osmolality Calculated 299 mOsm/kg (285-295); Procalcitonin 0.09 ng/mL (0-0.5); Sodium 142 mmol/L (136-145)
[2021-01-23 03:01] LABS: Anion Gap 17.3 (5-19); Potassium 4.3 mmol/L (3.5-5.1)
[2021-01-23 03:30] VITALS: BP 138/84; PULSE 66; RESP 18; TEMP 36.7; O2SAT 96
[2021-01-23 06:56] LABS: Glucose Point of Care 200 mg/dL (70-110)
[2021-01-23 08:00] VITALS: BP 137/79; PULSE 68; RESP 18; TEMP 36.8; O2SAT 97
[2021-01-23 09:10] VITALS: RESP 18
[2021-01-23] MEDS: morphine 4 mg/mL SDV 1 mL IVP (09:10)
[2021-01-23] MEDS: apixaban 5 mg Tablet PO (09:30)
[2021-01-23] MEDS: insulin lispro 100 unit/1 mL SUBCUT (09:30)
[2021-01-23] MEDS: pantoprazole DR 40 mg Tablet PO (09:30)
[2021-01-23] MEDS: lisinopril 10 mg Tablet 20 MG PO (09:30)
[2021-01-23] MEDS: amlodipine 10 mg Tablet PO (09:30)
[2021-01-23 11:36] VITALS: BP 145/85; PULSE 66; RESP 18; TEMP 36.8; O2SAT 96
[2021-01-23] MEDS: vancomycin 1,500 MG/300 ML PIGGYBACK 200 MG IV (11:37)
--- NOTE | 2021-01-23 11:46 | P.DS_ITS ---
Discharge Providers Date of Admission: 01/19/21 02:50 Date of Discharge: January 23, 2021 Attending Provider at Admission: Ban Richardson MD Attending Provider at Discharge: Cristiano Chan MD Primary Care Provider: TERESA Adams Diagnoses at Discharge Discharge Diagnosis (1) Open wound of left thigh: Status: Acute (2) Hyperglycemia: Status: Acute (3) Chronic anticoagulation: Status: Acute Permanent problem details: on eliquis, unclear reason, patient not certain (4) Chronic low back pain: Status: Chronic Qualifiers: Back pain laterality: unspecified Sciatica presence: unspecified whether sciatica present Qualified Code(s): M54.5 - Low back pain; G89.29 - Ot her chronic pain (5) BMI 40.0-44.9, adult: Status: Acute (6) Cellulitis and abscess of left leg: Status: Acute Reason for Visit Reason for Visit: Brown [place] bite Hospital Course Hospital Course History of Present Illness Dr. Dylan Thorpe Chito Capone is a 60 year old male who presented to the emergency room with chief complaint of pain and swelling in his left leg. Last week he had an episode in which he was sitting upright and he felt sting-like sensation in his left groin area. He thought he saw some spiders, jose luis padilla, walking away. 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 He has toughed it out since. At one point he had what looked like a pimple head in the center of the area of swelling. A couple of days ago he popped it. A very small amount of yellowish purulent-looking material came out but no more. It has since scabbed over in the center. Pain began increasing along with increasing edema and has gotten to the point that he came in for further evaluation. CT imaging did not show any areas of fluid collections. White count was elevated at 15,000 and CRP was noted to be 125. He received a dose of vancomycin and Zosyn and request was made for admission for further care. He has had similar wounds all of which he has attributed to spider bites but they have not been quite this bad before. He has required lancing of a wound one other time. He reports some subjective fevers and generalized aches and pains. No GI symptoms. No change in urine output. Denies any history of diabetes Hospital course Patient was admitted for management of cellulitis and abscess of left leg which developed after a spider bite, patient identified spider as brown recluse spider. Came to the hospital approximately after 10 days of his symptoms. He was started on broad-spectrum antibiotics, Dr. Cobos was consulted for evaluation who did incision and drainage of left thigh abscess with excision of left thigh inflammatory mass with sharp debridement of abscess cavity dimensions 16 x 9 x [address] to subcutaneous layer, with estimated blood loss 100 mL. Blood culture which was sent from the OR positive for staph aureus/MRSA, patient remained afebrile, no bacteremia. Dressing was changed by Dr. Cobos, he will follow patient at wound care clinic. Patient will be discharged on 01/23 on clindamycin for staph aureus coverage, hemoglobin A1c 6.2, he is prediabetic, at the time of discharge I have added Metformin, opioids for analgesia along bowel regimen. Eliquis was held for a week to avoid bleeding around the wound. Physical Exam Narrative: EXAM NARRATIVE: Patient is lying comfortably Awake alert Saturating well on room air S1, S2 Abdomen soft distended visceral obesity No audible stridor or wheezing Left thigh wound without any purulence, good granulation tissue noted during dressing change 16 x 9 x 3 cm, clean base without any necrotic tissue Discharge Data Data Completed and Pending: Completed Studies During Hospitalization Category Date Time Status CT femur LT w con [id number] Urgent Cat Scan 01/18/21 23:39 Completed Pending at discharge Category Date Time Status ES surgery / GI i mages Routine Exams 01/21/21 08:07 Taken Blood Culture Sta t Lab 01/18/21 23:39 Results Tissue Culture an d Gram Stain Routi ne Lab 01/21/21 08:26 Results Vancomycin Trough Timed Lab 01/23/21 22:00 Ordered Pathology: Surgic al [PTH] Routine Pth 01/21/21 08:44 Received Labs from last 24 hours 01/23/21 01/23/21 01/23/21 06:45 02:04 02:04 WBC 9.5 RBC 4.03 L Hgb 12.6 Hct 38.5 L MCV 95.5 H MCH 31.3 MCHC 32.7 RDW 13.1 Plt Count 296 MPV 10.0 Neut % (Auto) 63.9 Lymph % (Auto) 22.0 [place] % (Auto) 7.2 Eos % (Auto) 3.5 Baso % (Auto) 1.2 Neut # (Auto) 6.04 Lymph # (Auto) 2.1 [place] # (Auto) 0.7 Eos # (Auto) 0.3 Baso # (Auto) 0.1 Nucleated RBC % (a uto) 0 Nucleated RBCs # 0.0 Sodium 142 Potassium 4.3 Chloride 108 H Carbon Dioxide 21 L Anion Gap 17.3 BUN 17 Creatinine 0.9 GFR Calculation 85.8 L Glucose 159 H POC Glucose 200 H Calculated Osmolal ity 299 H Calcium 8.2 L Procalcitonin 0.09 01/22/21 01/22/21 20:37 17:57 WBC RBC Hgb Hct MCV MCH MCHC RDW Plt Count MPV Neut % (Auto) Lymph % (Auto) [place] % (Auto) Eos % (Auto) Baso % (Auto) Neut # (Auto) Lymph # (Auto) [place] # (Auto) Eos # (Auto) Baso # (Auto) Nucleated RBC % (a uto) Nucleated RBCs # Sodium Potassium Chloride Carbon Dioxide Anion Gap BUN Creatinine GFR Calculation Glucose POC Glucose 230 H 173 H Calculated Osmolal ity Calcium Procalcitonin Vitals: Last Vital Signs Temp 98.2 F 01/23/21 11:36 Pulse 66 01/23/21 11:36 Resp 18 01/23/21 11:36 BP 145/85 01/23/21 11:36 Pulse Ox 96 01/23/21 11:36 Discharge Plan Discharge Patient Disposition: Home Condition: Stable Prescriptions: New clindamycin HCl 300 mg capsule 300 mg PO Q6H 14 Days Qty: 56 RF: 0 oxycodone 5 mg tablet 5 mg PO Q6H PRN (Reason: pain) Qty: 30 RF: 0 Senna-S 8.6-50 mg tablet 1 tab-cap PO DAILY PRN (Reason: constipation) Qty: 30 RF: 0 metformin 1,000 mg tablet 500 mg PO BID Qty: 60 RF: 2 Continued amlodipine 10 mg tablet 10 mg PO DAILY 90 Days Qty: 90 RF: 3 omeprazole 20 mg capsule,delayed release(DR/EC) 20 mg PO DAILY Qty: 90 RF: 3 aspirin 81 mg 81 mg PO DAILY 30 Days Qty: 30 RF: 0 ondansetron HCl [Zofran] 4 mg tablet 4 mg PO Q6H PRN (Reason: nausea and vomiting) Qty: 10 RF: 0 acetaminophen 500 mg Tablet 1,000 mg PO BID RF: 0 lisinopril 20 mg tablet 20 mg PO DAILY RF: 0 Held Eliquis 5 mg tablet 5 mg PO BID RF: 0 Hold Instructions: Resume on 01/30/21. Discharge Orders: Discharge Order (Routine); Ordered 01/23/21 Ordered By: Cristiano Chan Referrals: Polly Jim FNP [Primary Care Provider] - 01/25/21 11:00 am (7) WOUND [facility]ARE CLINIC, [Staff Physician] - 01/25/21 8:30 am Discharge Diet: Diabetic Discharge Activity: Increase activity as tolerated Patient Instructions: Clindamycin (By mouth), Oxycodone, Rapid Release (By mouth) (ETH-Oxydose, Oxy IR,..., Metformin (By mouth) (Glucophage, Glucophage XR, Fortamet,..., Senna (By mouth), Brown Recluse Spider Bite (DC), Incision and Drainage (DC), Opioid Safety Discharge Attestations Time Spent in Discharge Care*: less than 30 min Status at Discharge: Cognitive status at discharge: cognitively intact , Behavioral status at discharge: cooperative and independent in ADL's , Quality Metrics Clinical Quality Measures During this hospital stay, did patient experience: None Coding Level of Care Code Acute Chg FW DC note Diagnoses Open wound of left thigh S71.102A Hyperglycemia R73.9 Chronic anticoagulation Z79.01 Chronic low back pain M54.5; G89.29 Back pain laterality: unspecified Sciatica presence: unspecified whether sciatica present BMI 40.0-44.9, adult Z68.41 Cellulitis and abscess of left leg L03.116; L02.416
[2021-01-23 12:11] LABS: Glucose Point of Care 144 mg/dL (70-110)
[2021-01-23 14:46] VITALS: BP 145/85; PULSE 66; RESP 18; TEMP 36.8; O2SAT 96
== END 2021-01-23 14:47 | disposition home or self-care (01) | DRG 902 ==
LOC: ER 01-19 02:44 → ER IP 01-19 03:10 → MEDSURG 01-19 16:13
PROVIDERS: Internal Medicine; Physician Assistant; Surgery; Admitting Provider Hospitalist; Emergency Provider Emergency Medicine; PCP Registered Nurse; Visit Provider Internal Medicine
PROC: 0JBM0ZZ Excision of Left Upper Leg Subcutaneous Tissue and Fascia, Open Approach (ICD-10-PCS; principal; 2021-01-21 08:15)
DX: T63.331A Toxic effect of venom of brown recluse spider, accidental (unintentional), initial encounter (principal); L02.416 Cutaneous abscess of left lower limb; Z68.41 Body mass index [BMI] 40.0-44.9, adult; L03.116 Cellulitis of left lower limb; B95.62 Methicillin resistant Staphylococcus aureus infection as the cause of diseases classified elsewhere; R73.9 Hyperglycemia, unspecified; K21.00 Gastro-esophageal reflux disease with esophagitis, without bleeding; I10 Essential (primary) hypertension; E66.9 Obesity, unspecified; G89.29 Other chronic pain; Z79.82 Long term (current) use of aspirin; Z79.01 Long term (current) use of anticoagulants; Z86.16 Personal history of COVID-19; Z87.19 Personal history of other diseases of the digestive system; Z87.442 Personal history of urinary calculi; Z90.49 Acquired absence of other specified parts of digestive tract
CPT/HCPCS: 36415; 36416; 73701; 80048; 80053; 80202; 82962; 83036; 83605; 83735; 84145; 85025; 85610; 85730; 86140; 87040; 87070; 87077; 87176; 87186; 87205; 88309; 96365; 96367; 96372; 96375; 99285; 99291; J0330; J1100; J1170; J1644; J1815 ×2; J2270; J2405; J2543; J2704; J3010; J3370; J3490; J7030; J7050; Q9967

== ENCOUNTER 2021-01-25 08:16 | Outpatient (CLI) | payer BC, SELFPAY | END 2021-01-25 08:17 | disposition home or self-care (01) | LOC: WOUND 08:16 | PROVIDERS: PCP Registered Nurse; Visit Provider Nurse Practitioner Family | DX: T81.89XA Other complications of procedures, not elsewhere classified, initial encounter (principal); Y83.8 Other surgical procedures as the cause of abnormal reaction of the patient, or of later complication, without mention of misadventure at the time of the procedure; Z87.891 Personal history of nicotine dependence | CPT/HCPCS: G0463 ==

== ENCOUNTER 2021-01-29 15:34 | Outpatient (CLI) | payer BC, SELFPAY | END 2021-01-29 15:35 | disposition home or self-care (01) | LOC: WOUND 15:34 | PROVIDERS: PCP Registered Nurse; Visit Provider Nurse Practitioner Family | DX: T81.89XA Other complications of procedures, not elsewhere classified, initial encounter (principal); Y83.8 Other surgical procedures as the cause of abnormal reaction of the patient, or of later complication, without mention of misadventure at the time of the procedure; Z87.891 Personal history of nicotine dependence | CPT/HCPCS: 11042; 11045 ==

== ENCOUNTER 2021-02-05 15:19 | Outpatient (CLI) | payer BC, SELFPAY | END 2021-02-05 15:20 | disposition home or self-care (01) | LOC: WOUND 15:19 | PROVIDERS: PCP Registered Nurse; Visit Provider Nurse Practitioner Family | DX: T81.89XA Other complications of procedures, not elsewhere classified, initial encounter (principal); Y83.8 Other surgical procedures as the cause of abnormal reaction of the patient, or of later complication, without mention of misadventure at the time of the procedure; Z87.891 Personal history of nicotine dependence | CPT/HCPCS: 11042; 11045 ==

== ENCOUNTER 2021-02-15 13:15 | Outpatient (CLI) | payer OTHER, SELFPAY | END 2021-02-15 13:16 | disposition home or self-care (01) | PROVIDERS: PCP Registered Nurse; Visit Provider Emergency Medicine | DX: T81.89XA Other complications of procedures, not elsewhere classified, initial encounter (principal); Y83.8 Other surgical procedures as the cause of abnormal reaction of the patient, or of later complication, without mention of misadventure at the time of the procedure; Z87.891 Personal history of nicotine dependence | CPT/HCPCS: 11042; 11045 ==

== ENCOUNTER 2021-02-22 14:00 | Outpatient (CLI) | payer OTHER, SELFPAY | END 2021-02-22 14:01 | disposition home or self-care (01) | LOC: WOUND 14:00 | PROVIDERS: PCP Registered Nurse; Visit Provider Emergency Medicine | DX: T81.89XA Other complications of procedures, not elsewhere classified, initial encounter (principal); Y83.8 Other surgical procedures as the cause of abnormal reaction of the patient, or of later complication, without mention of misadventure at the time of the procedure; Z87.891 Personal history of nicotine dependence | CPT/HCPCS: 11042; 11045 ==

== ENCOUNTER 2021-03-02 14:18 | Outpatient (CLI) | payer OTHER, SELFPAY | END 2021-03-02 14:19 | disposition home or self-care (01) | LOC: WOUND 14:18 | PROVIDERS: PCP Registered Nurse; Visit Provider Surgery | DX: T81.89XA Other complications of procedures, not elsewhere classified, initial encounter (principal); Y83.8 Other surgical procedures as the cause of abnormal reaction of the patient, or of later complication, without mention of misadventure at the time of the procedure; Z87.891 Personal history of nicotine dependence; I10 Essential (primary) hypertension | CPT/HCPCS: 11042; 11045 ==

== ENCOUNTER 2021-03-09 09:24 | Outpatient (CLI) | payer OTHER, SELFPAY | END 2021-03-09 09:25 | disposition home or self-care (01) | LOC: WOUND 09:25 | PROVIDERS: PCP Registered Nurse; Visit Provider Surgery | DX: T81.89XA Other complications of procedures, not elsewhere classified, initial encounter (principal); Y83.8 Other surgical procedures as the cause of abnormal reaction of the patient, or of later complication, without mention of misadventure at the time of the procedure; I10 Essential (primary) hypertension; Z87.891 Personal history of nicotine dependence | CPT/HCPCS: 11042; 11045 ==

== ENCOUNTER 2021-03-23 13:45 | Outpatient (CLI) | payer OTHER, SELFPAY | END 2021-03-23 13:46 | disposition home or self-care (01) | LOC: WOUND 13:45 | PROVIDERS: PCP Registered Nurse; Visit Provider Surgery | DX: T81.89XA Other complications of procedures, not elsewhere classified, initial encounter (principal); Y83.8 Other surgical procedures as the cause of abnormal reaction of the patient, or of later complication, without mention of misadventure at the time of the procedure; Z87.891 Personal history of nicotine dependence | CPT/HCPCS: 11042; 11045 ==

== ENCOUNTER 2021-03-30 13:12 | Outpatient (CLI) | payer OTHER, SELFPAY | END 2021-03-30 13:13 | disposition home or self-care (01) | LOC: WOUND 13:12 | PROVIDERS: PCP Registered Nurse; Visit Provider Surgery | DX: I96 Gangrene, not elsewhere classified (principal); L97.122 Non-pressure chronic ulcer of left thigh with fat layer exposed; T81.89XA Other complications of procedures, not elsewhere classified, initial encounter; T81.49XA Infection following a procedure, other surgical site, initial encounter | CPT/HCPCS: 11042; 11045 ==

== ENCOUNTER 2021-04-13 13:36 | Outpatient (CLI) | payer OTHER, SELFPAY | END 2021-04-13 13:37 | disposition home or self-care (01) | LOC: WOUND 13:36 | PROVIDERS: PCP Registered Nurse; Visit Provider Nurse Practitioner Family | DX: T81.89XD Other complications of procedures, not elsewhere classified, subsequent encounter (principal); Y83.8 Other surgical procedures as the cause of abnormal reaction of the patient, or of later complication, without mention of misadventure at the time of the procedure; Z87.891 Personal history of nicotine dependence | CPT/HCPCS: 11042; 11045 ==

== ENCOUNTER 2021-04-20 10:42 | Outpatient (CLI) | payer OTHER, SELFPAY | END 2021-04-20 10:43 | disposition home or self-care (01) | LOC: WOUND 10:43 | PROVIDERS: PCP Registered Nurse; Visit Provider Surgery | DX: T81.89XA Other complications of procedures, not elsewhere classified, initial encounter (principal); Y83.8 Other surgical procedures as the cause of abnormal reaction of the patient, or of later complication, without mention of misadventure at the time of the procedure; Z87.891 Personal history of nicotine dependence | CPT/HCPCS: 11042 ==

== ENCOUNTER → 2021-06-08 09:40 | Outpatient (BNVA) | payer OTHER, SELFPAY | PROVIDERS: PCP Registered Nurse; Visit Provider Registered Nurse | DX: I10 Essential (primary) hypertension (principal); E11.9 Type 2 diabetes mellitus without complications; E78.5 Hyperlipidemia, unspecified | CPT/HCPCS: 80053; 80061; 83036; 85025 ==

== ENCOUNTER → 2021-08-31 11:25 | Outpatient (BNVA) | payer OTHER, SELFPAY | PROVIDERS: PCP Registered Nurse; Visit Provider Registered Nurse | DX: E11.9 Type 2 diabetes mellitus without complications (principal) | CPT/HCPCS: 83036 ==

== ENCOUNTER → 2022-03-22 09:01 | Outpatient (BNVA) | payer OTHER, SELFPAY | PROVIDERS: PCP Registered Nurse; Visit Provider Registered Nurse | DX: E11.9 Type 2 diabetes mellitus without complications (principal) | CPT/HCPCS: 80053; 80061; 83036; 85025 ==

== ENCOUNTER → 2023-03-28 10:57 | Outpatient (BNVA) | payer OTHER, SELFPAY | PROVIDERS: PCP Registered Nurse; Visit Provider Registered Nurse | DX: I10 Essential (primary) hypertension (principal); E11.9 Type 2 diabetes mellitus without complications; Z79.899 Other long term (current) drug therapy | CPT/HCPCS: 80053; 80061; 83036; 85025 ==

== ENCOUNTER → 2023-12-17 09:01 | Outpatient (BNVA) | payer OTHER, SELFPAY | PROVIDERS: PCP Registered Nurse; Visit Provider Nurse Practitioner Family | DX: I10 Essential (primary) hypertension (principal); E78.5 Hyperlipidemia, unspecified | CPT/HCPCS: 80053; 83036; 85025 ==

== ENCOUNTER → 2024-08-20 11:22 | Outpatient (BNVA) | payer OTHER, SELFPAY | PROVIDERS: PCP Registered Nurse; Visit Provider Registered Nurse | DX: E11.9 Type 2 diabetes mellitus without complications (principal); N40.0 Benign prostatic hyperplasia without lower urinary tract symptoms | CPT/HCPCS: 80048; 80053; 80061; 83036; 83721; 84153; 85025 ==

== ENCOUNTER 2024-10-28 11:20 | Emergency (ER) | payer OTHER, SELFPAY ==
--- OUTSIDE RECORDS SUMMARY | 2024-10-28 11:25 | XMS_ITS | Clinical Summary ---
Author Organization [facility] Address [address] Nieves: [place] [address] Care Team Providers Care Hospital Intern Name Role Phone Enrique Ross, TERESA, Dale Davis Primary Care Pro vider Allergies No known active allergies Active Problems Problem Noted Date Diagnosed Date HTN (hypertension) 04/28/2010 Overview (08/17/2020): Well controlled on current medication - 04/2010 GERD (gastroesophageal reflux disease) 1 Overview (08/17/2020): Symptoms well controlled on omeprazole - 04/2010 Family History Medical History Relation Name Comments High Cholesterol Father Hypertension Father Diabetes Mother Heart Disease Mother High Cholesterol Mother Hypertension Mother Relation Name Status Comments Father Mother Social History Tobacco Use Types Packs/Day Years Used Date Smoking Tobacco: Never Smokeless Tobacco: Never Alcohol Use Standard Drinks/Week Comments No 0 (1 standard drink = 0.6 oz pur e alcohol) Sex and Gender Information Value Date Recorded Sex Assigned at Not on file 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 Gender Identity Not on file Sexual Orientation Not on file Last Filed Vital Signs Vital Sign Reading Time Taken Comments Blood Pressure 161/93 05/29/2015 4:54 PM CDT Pulse 99 05/29/2015 4:40 PM CDT Temperature 37.3 C (99.2 F) 05/29/2015 4:54 PM CDT Respiratory Rate 20 05/29/2015 4:54 PM CDT Oxygen Saturation - - Inhaled Oxygen Concentration - - Weight 120.7 kg (266 lb 3.2 oz) 05/29/2015 3:20 PM CDT Height 182.9 cm (6') 05/29/2015 3:20 PM CDT Body Mass Index 36.1 05/29/2015 3:20 PM CDT Plan of Treatment Health Maintenance Due Date Last Done Comments DTAP/TDAP/TD VACCINES (1 - Tdap) 11/27/1978 COLORECTAL SCREENING 11/27/2004 Colorectal Cancer Screening 11/27/2004 FIT-DNA Q 3 years 11/27/2004 FIT/FOBT Q 1 year 11/27/2004 Flex Sig/CT Colonography Q 5 years 11/27/2004 ZOSTER VACCINE (1 of 2) 11/27/2009 INFLUENZA VACCINE (#1) 2024 RSV VACCINE (60+ or ) (1 - 1-dose 75+ series) 11/27/2034 Care Teams Hospital Intern Relationship Specialty Start Date End Date Enrique Ross, TERESA Flowers [address] [place] [address] PCP - General NURSE PRACTITIONER 05/29/15
--- OUTSIDE RECORDS SUMMARY | 2024-10-28 11:25 | XMS_ITS | Encounter Summary ---
Author Organization [facility] Address [address] [place] [address] Care Team Providers Care Wrapping Machine Operator Name Role Phone TERESA Nunez Sr., Michael Dave Primary Care Pro vider Encounter Details Date Type Department Care Team (Latest Contact Info) Description 08/24/2001 Outpatient Historical [facility] [address] [place] [phone] Moses Gutierrez DO NO ADDRESS ON FILE CHEST PAIN NOS (Primary Dx); HYPERTENSION NOS Social History Tobacco Use Types Packs/Day Years Used Date Smoking Tobacco: Never Assessed Sex and Gender Information Value Date Recorded Sex Assigned at Not on file 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
--- OUTSIDE RECORDS SUMMARY | 2024-10-28 11:25 | XMS_ITS | Encounter Summary ---
Author Organization [facility] Address [address] [place] [address] Care Team Providers Care Tumbler Plater Name Role Phone TERESA Nunez Sr., Michael Dave Primary Care Pro vider Encounter Details Date Type Department Care Team (Latest Contact Info) Description 05/10/2003 Outpatient Historical [facility] Medicine [address] [place] [phone] Moses Gutierrez DO NO ADDRESS ON FILE ISSUE MEDICAL CERTIFICAT (Primary Dx) Social History Tobacco Use Types Packs/Day Years Used Date Smoking Tobacco: Never Assessed Sex and Gender Information Value Date Recorded Sex Assigned at Not on file 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
--- OUTSIDE RECORDS SUMMARY | 2024-10-28 11:25 | XMS_ITS | Encounter Summary ---
Author Organization [facility] Address [address] [place] [address] Care Team Providers Care Navy Airspace Officer Name Role Phone TERESA Nunez Sr., Michael Dave Primary Care Pro vider Encounter Details Date Type Department Care Team (Latest Contact Info) Description 12/14/2002 Outpatient Historical [facility] [address] [place] [phone] Moses Gutierrez DO NO ADDRESS ON FILE NONINFEC GASTROENTERIT NEC (Primary Dx); ACUTE SINUSITIS NOS; HYPERTENSION NOS; FLUID OVERLOAD Social History Tobacco Use Types Packs/Day Years Used Date Smoking Tobacco: Never Assessed Sex and Gender Information Value Date Recorded Sex Assigned at Not on file 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 Gender Identity Not on file Sexual Orientation Not on file documented as of this encounter Plan of Treatment Not on file documented as of this encounter Visit Diagnoses Diagnosis Other and unspecified noninfectious gastroenteritis and colitis(558.9)- Primary Other and unspecified noninfectious gastroenteritis and colitis Acute sinusitis, unspecified Unspecified essential hypertension Fluid overload documented in this encounter Care Teams [employer] Airspace Officer Relationship Specialty Start Date End Date Dale Nunez Sr., FNP [address] [place] [address] PCP - General NURSE PRACTITIONER 05/29/15 documented as of this encounter
--- OUTSIDE RECORDS SUMMARY | 2024-10-28 11:25 | XMS_ITS | Encounter Summary ---
Author Organization [facility] Address [address] [place] [address] Care Team Providers Care Lean Manufacturing Specialist Name Role Phone TERESA Nunez Sr., Michael Dave Primary Care Pro vider Encounter Details Date Type Department Care Team (Latest Contact Info) Description 01/30/2006 Outpatient Historical [facility] Medicine [address] [place] [phone] Rowena Blas MD NO ADDRESS ON FILE Pneumonia, Organism Unspecified (Primary Dx) Social History Tobacco Use Types Packs/Day Years Used Date Smoking Tobacco: Never Assessed Sex and Gender Information Value Date Recorded Sex Assigned at Not on file 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
--- OUTSIDE RECORDS SUMMARY | 2024-10-28 11:25 | XMS_ITS | Encounter Summary ---
Author Organization [facility] Address [address] [place] [address] Care Team Providers Care Fruit Grader Name Role Phone TERESA Nunez Sr., Michael Dave Primary Care Pro vider Encounter Details Date Type Department Care Team (Latest Contact Info) Description 08/14/2001 Outpatient Historical [facility] Medicine [place] [address] [facility] [address] [place] [phone] Negro Nunez MD [address] [phone] SHORTNESS OF BREATH (Primary Dx); OTHER MALAISE AND FATIGUE Social History Tobacco Use Types Packs/Day Years Used Date Smoking Tobacco: Never Assessed Sex and Gender Information Value Date Recorded Sex Assigned at Not on file 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
--- OUTSIDE RECORDS SUMMARY | 2024-10-28 11:25 | XMS_ITS | Encounter Summary ---
Author Organization [facility] Address [address] [place] [address] Care Team Providers Care Recreation Leader Name Role Phone TERESA Nunez Sr., Michael Dave Primary Care Pro vider Encounter Details Date Type Department Care Team (Latest Contact Info) Description 07/13/2002 Outpatient Historical [facility] Family Medicine- [address] [place] [address] Moses Gutierrez, NO ADDRESS ON FILE DIZZINESS AND GIDDINESS (Primary Dx); POSTSURGICAL STATES NEC; HYPERTENSION NOS Social History Tobacco Use Types Packs/Day Years Used Date Smoking Tobacco: Never Assessed Sex and Gender Information Value Date Recorded Sex Assigned at Not on file 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
--- OUTSIDE RECORDS SUMMARY | 2024-10-28 11:25 | XMS_ITS | Encounter Summary ---
Author Organization [facility] Address [address] [place] [address] Care Team Providers Care Dairy Bar Manager Name Role Phone TERESA Nunez Sr., Michael Dave Primary Care Pro vider Encounter Details Date Type Department Care Team (Late st Contact Info) Description 01/31/2006 Outpatient Historical [facility] [address] [place] [phone] Social History Tobacco Use Types Packs/Day Years Used Date Smoking Tobacco: Never Assessed Sex and Gender Information Value Date Recorded Sex Assigned at Not on file 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
--- OUTSIDE RECORDS SUMMARY | 2024-10-28 11:25 | XMS_ITS | Encounter Summary ---
Author Organization [facility] Address [address] [place] [address] Care Team Providers Care Dobby Looms Pegger Name Role Phone TERESA Nunez Sr., Dale Davis Primary Care Pro vider Encounter Details Date Type Department Care Team (Latest Contact Info) Description 12/04/2001 Outpatient Historical [facility] Family Medicine- [address] [place] [address] Negro Nunez MD [address] [facility] [address] [place] [phone] ESOPHAGEAL REFLUX (Primary Dx); DERMATOPHYTOSIS OF GROIN; HYPERTENSION NOS Social History Tobacco Use Types Packs/Day Years Used Date Smoking Tobacco: Never Assessed Sex and Gender Information Value Date Recorded Sex Assigned at Not on file 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
--- OUTSIDE RECORDS SUMMARY | 2024-10-28 11:25 | XMS_ITS | Encounter Summary ---
Author Organization [facility] Address [address] [place] [address] Care Team Providers Care Hydro Plant Site Manager Name Role Phone TERESA Nunez Sr., Michael Dave Primary Care Pro vider Encounter Details Date Type Department Care Team (Latest Contact Info) Description 11/04/2003 Outpatient Historical [facility] Medicine [place] [address] [facility] [address] [place] [phone] Negro Nunez MD [address] [phone] HYPERTENSION NOS (Primary Dx); CARPAL TUNNEL SYNDROME; EDEMA Social History Tobacco Use Types Packs/Day Years Used Date Smoking Tobacco: Never Assessed Sex and Gender Information Value Date Recorded Sex Assigned at Not on file 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
--- OUTSIDE RECORDS SUMMARY | 2024-10-28 11:25 | XMS_ITS | Encounter Summary ---
Author Organization [facility] Address [address] [place] [address] Care Team Providers Care Rn Psych Name Role Phone TERESA Nunez Sr., Michael Dave Primary Care Pro vider Encounter Details Date Type Department Care Team (Latest Contact Info) Description 06/04/2002 Outpatient Historical [facility] [address] [place] [address] AMBULANCE, 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
--- OUTSIDE RECORDS SUMMARY | 2024-10-28 11:25 | XMS_ITS | Encounter Summary ---
Author Organization [facility] Address [address] [place] [address] Care Team Providers Care Reservation Manager Name Role Phone TERESA Nunez Sr., Michael Dave Primary Care Pro vider Encounter Details Date Type Department Care Team (Late st Contact Info) Description 04/13/2003 Outpatient Historical 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
--- OUTSIDE RECORDS SUMMARY | 2024-10-28 11:25 | XMS_ITS | Encounter Summary ---
Author Organization [facility] Address [address] [place] [address] Care Team Providers Care Ribbon Sweatband Operator Name Role Phone TERESA Nunez Sr., Michael Dave Primary Care Pro vider Encounter Details Date Type Department Care Team (Latest Contact Info) Description 04/12/2003 Outpatient Historical [facility] Medicine [address] [place] [phone] Moses Gutierrez DO NO ADDRESS ON FILE ABNORMAL WEIGHT GAIN (Primary Dx); HYPERTENSION NOS; OTHER MALAISE AND FATIGUE; JOINT PAIN-UNSPEC Social History Tobacco Use Types Packs/Day Years Used Date Smoking Tobacco: Never Assessed Sex and Gender Information Value Date Recorded Sex Assigned at Not on file 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
--- OUTSIDE RECORDS SUMMARY | 2024-10-28 11:25 | XMS_ITS | Clinical Summary ---
Author Organization [facility] Address [address] [place] [address] Care Team Providers Care Electronic Warfare Linguist Name Role Phone Enrique Ross, Dael MOORE Primary Care Pro vider Allergies No known active allergies Medications omeprazole (PRILOSEC) 20 mg Oral CpDR Take 20 mg by mouth daily. Active traMADol (ULTRAM) 50 mg Oral tablet Take 50-100 mg by mouth daily. Active ibuprofen (MOTRIN) 200 mg Oral Cap Take by mouth. PRN Active amLODIPine (NORVASC) 10 mg tablet Take 10 mg by mouth daily. Active acetaminophen- caffeine-butal bital (FIORICET) 325-40-50 mg tablet Take 1 Tablet by mouth every 4 hours as needed for Migraine. Active meloxicam (MOBIC) 7.5 mg tablet Take 7.5 mg by mouth daily. Active cephALEXin (KEFLEX) 500 mg capsule Take 1,000 mg by mouth 2 times daily. Active SUMAtriptan (IMITREX) 100 mg tablet Take 100 mg by mouth see administration instructions may repeat in 2 hours; max dose 200mg in 24 hours . Active albuterol HFA 90 mcg inhaler Take 2 Puffs by inhalation every 6 hours as needed for Wheezing or Shortness of Breath. 8.5 Gram None 6 Active predniSONE (DELTASONE) 20 mg tablet Take 2 Tablet (40 mg) by mouth 2 times daily with meals. 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 Gender Identity Not on file Sexual Orientation Not on file Last Filed Vital Signs Vital Sign Reading Time Taken Comments Blood Pressure 161/93 05/29/2015 4:54 PM CDT Pulse 99 05/29/2015 4:40 PM CDT Temperature 37.3 C (99.2 F) 05/29/2015 4:54 PM CDT Respiratory Rate 20 05/29/2015 4:54 PM CDT Oxygen Saturation 95% 05/29/2015 4:54 PM CDT Inhaled Oxygen Concentration - - Weight 120.7 [...] - 1-dose 75+ series) 11/27/2034 Care Teams Electronic Warfare Linguist Relationship Specialty Start Date End Date Enrique Ross, TERESA Flowers [address] [place] [address] PCP - General NURSE PRACTITIONER 05/29/15
--- OUTSIDE RECORDS SUMMARY | 2024-10-28 11:25 | XMS_ITS | Encounter Summary ---
Author Organization [facility] Address [address] [place] [address] Care Team Providers Care Distribution Technician Name Role Phone TERESA Nunez Sr., Michael Dave Primary Care Pro vider Encounter Details Date Type Department Care Team (Latest Contact Info) Description 05/14/2001 Outpatient Historical [facility] Medicine [address] [place] [phone] Rowena Blas MD NO ADDRESS ON FILE ISSUE MEDICAL CERTIFICAT (Primary Dx); DERMATOPHYTOSIS OF BODY Social History Tobacco Use Types Packs/Day Years Used Date Smoking Tobacco: Never Assessed Sex and Gender Information Value Date Recorded Sex Assigned at Not on file 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
--- OUTSIDE RECORDS SUMMARY | 2024-10-28 11:25 | XMS_ITS | Encounter Summary ---
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
[2024-10-28 11:35] VITALS: BP 149/81; PULSE 78; TEMP 36.5; O2SAT 96
[2024-10-28 11:42] VITALS: BP 147/80; PULSE 78; O2SAT 98
--- NOTE | 2024-10-28 12:17 | CT_ITS ---
WS: [id number] CT LUMBAR SPINE, noncontrast. HISTORY: fall 2 weeks, 2 days severe R lower back/sciatica TECHNIQUE: Contiguous 2.0 mm axial imaging are performed. Sagittal and coronal reformats are submitted and reviewed. All CT scans at [facility] use at least one of these dose optimization techniques: automated exposure control; mA and/or kV adjustment per patient size (includes targeted exams where dose is matched to clinical indication); or iterative reconstruction. IV contrast: None DLP: 1817.41 mGy.cm COMPARISON: 10/18/2019 L2 retrolisthesis by 2 mm. Vacuum disc phenomenon at T12-L1 and L1-2. Small Schmorl's nodes along the endplates of T12, L1 and L2. No acute fractures. L1-2: Normal. L2-3: Normal. L3-4: Minimal disc bulging. Very shallow RIGHT foraminal disc protrusion. No stenosis. L4-5: Mild disc bulging. Mild effacement of ventral CSF. Very shallow RIGHT foraminal disc protrusion. No high-grade stenosis. L5-S1: Mild disc bulging with a small central disc protrusion and RIGHT foraminal disc protrusion. No stenosis. No obvious contact on the nerve roots. Visualized retroperitoneum is normal. CT/CT lumbar spine wo con* [id number] IMPRESSION: 1. No acute lumbar spine fracture. 2. Remote Schmorl's nodes inferiorly endplates of T12, L1 and L2. 3. Very shallow RIGHT foraminal disc protrusions at L3-4, L4-5 and L5-S1 with a small central disc protrusion also at L5-S1. No high-grade or significant regine nosis. 4. No central stenosis.
--- NOTE | 2024-10-28 12:32 | ED_ITS ---
HPI - Extremity Problem General: Chief complaint: Extremity Injury, Lower Stated complaint: rt leg weakness / pain Time Seen by Provider: 10/28/24 12:02 History of Present Illness: Patient presenting to the emergency department with approximately 2-day history of right lower back pain described as in the area just above the buttock rating down the buttock into the posterior thigh, when he moves it a certain way he reports that it radiates down the leg and causes weakness and numbness in the leg but this is not constant and is not currently present. He reports a previous history of low back pain but does not feel like this, he reports falling out of his truck 2 weeks ago and had some mild pain to the lower back then but that had resolved with supportive care. He attempted 2 doses of hydrocodone that he had leftover from a previous prescription as well as some tramadol last night without improvement of symptoms. He denies any incontinence or retention of urine or stool, denies urinary complaints, denies blood in the urine, denies burning dysuria hematuria frequency or urgency, he is able to ambulate without assistance, he denies history of surgical intervention to the back in the past. He does report going to a chiropractor who has done manipulations in the past with good effect. Related Data Home Medications ?Medication ?Instructions ?Recorded ?Confirmed acetaminophen 500 mg tablet 1,000 mg PO BID 01/19/21 0 09/09/24 Previous Rx's ?Medication ?Instructions ?Recorded aspirin 81 mg PO DAILY 30 days #30 t abs 09/23/19 cetirizine 10 mg tablet (Zyrtec) 10 mg PO DAILY PRN al lergy 05/01/24 symptoms 90 days #90 tabs fluticasone propionate 50 See Rx Instructions .Route 0 05/01/24 mcg/actuation nasal .COMPLEX #48 grams spray,suspension amlodipine 10 mg tablet See Rx Instructions .Route 0 08/20/24 .COMPLEX #90 tabs atorvastatin 20 mg tablet See Rx Instructions .Route 0 08/20/24 .COMPLEX #90 tabs celecoxib 100 mg capsule (Celebrex) 100 mg PO BID 90 d ays #180 caps 08/20/24 cyclobenzaprine 5 mg tablet See Rx Instructions .Route 08/20/24 .COMPLEX #60 tabs furosemide 20 mg tablet (Lasix) 20 mg PO DAILY #90 tab s 08/20/24 lisinopril 20 See Rx Instructions .Route 0 08/20/24 mg-hydrochlorothiazide 25 mg tablet .COMPLEX #90 tabs metformin 500 mg tablet,extended See Rx Instructions . Route 08/20/24 release 24 hr .COMPLEX #180 tabs omeprazole 20 mg capsule,delayed See Rx Instructions . Route 08/20/24 release .COMPLEX #90 caps potassium chloride 10 mEq 10 meq PO DAILY 90 days #90 tabs 08/20/24 tablet,extended release (Klor-Con) tamsulosin 0.4 mg capsule (Flomax) 0.4 mg PO DAILY #90 caps 08/20/24 tramadol 50 mg tablet 50 mg PO DAILY PRN pain #30 tabs 08/20/24 methocarbamol 750 mg tablet 750 mg PO Q6H PRN pain 7 d ays #28 10/28/24 tabs oxycodone-acetaminophen 5 mg-325 1 tab PO Q6H PRN pain 3 days #12 10/28/24 mg tablet (Percocet) tabs prednisone 20 mg tablet 40 mg (2 x 20 mg) PO DAILY 7 days 10/28/24 #14 tabs Allergies Allergy/AdvReac Type Severity Reaction Status Date / Time meloxicam (From [email or web address]) Allergy Mild ulcers Verified 10/28/24 11:42 [facility] ED [facility]: Medical History Cellulitis of left thigh Chronic anticoagulation on eliquis, unclear reason, patient not certain BMI 40.0-44.9, adult Cellulitis and abscess of left leg Right distal ureteral calculus Chronic low back pain Arthritis Insomnia Diverticulosis Obesity COVID-19 (~09/2019) GERD (gastroesophageal reflux disease) Hypertension Surgical History History of lithotripsy (~10/2019) with ureteral stent History of colonoscopy Hx of tonsillectomy History of esophagogastroduodenoscopy (EGD) 02/14/2019 esophagogastroduodenoscopy with biopsy Postop findings: Multiple gastric erosions S/P tonsillectomy H/O colectomy History of colon surgery Family History Mother Fibromyalgia Anesthesia complication Bleeding disorder Other CAD (coronary artery disease) Crohn's disease Diabetes Hypertension Social History Smoking and tobacco/nicotine status: never used tobacco/nicotine Alcohol intake: never Substance/Drug Use: never Lives independently: Yes Household members: spouse Marital status: Current occupational status: employed 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 Physical Exam Narrative: EXAM NARRATIVE: Gen: A&Ox4, no acute distress, nontoxic appearing HEENT: Normocephalic, atraumatic, no scleral icterus, external ears normal, moist mucous membranes Neck: Supple, full range of motion, no observable masses Lungs: No Respiratory distress, Lungs clear to auscultation bilaterally no rales, rhonchi, wheezing CV: Regular rate and rhythm, no murmur, no pitting edema to lower extremities bilaterally Abdomen: Soft, nondistended, nontender to palpation MSK: No joint swelling, FROM all 4 extremities, tender to palpation to the right SI region/right side paralumbar, no midline lumbar pain or swelling Skin: No rashes, petechiae, lesions. Normal color per patient. Neuro: Alert and oriented, no slurred speech, sensation and strength grossly intact all 4 extremities, specifically strength 5 out of 5 to hip flexion, knee flexion extension, ankle plantar and dorsi flexion and resisted great toe extension to the right lower extremity, sensation intact all dermatomal distributions of the right lower extremity, no saddle anesthesia, positive straight leg raise on the right, negative cross straight leg raise to the left Psych: Appropriate for situation. Course Reevaluation(s): Reevaluation #1: Patient reassessed, symptoms somewhat improved, able to ambulate, no focal neurologic deficits on repeat exam, stable for discharge with supportive care and follow-up outpatient orthospine Time: 13:43 Vital Signs: Vital signs: Vital Signs Temperature 97.7 F 10/28/24 11:35 Pulse Rate 78 10/28/24 11:42 Respiratory Rate 20 H 10/28/24 12:44 Blood Pressure 147/80 10/28/24 11:42 Pulse Oximetry 98 10/28/24 12:44 Oxygen Delivery Me thod Room Air 10/28/24 11:35 MDM - Extremity (Nontraumatic) Medical Decision Making 63-year-old male history of back pain issues in the past, presenting with fall 2 weeks ago with mild back pain that it seemingly improved but now with 2-day history of constant right lower back pain radiating into the posterior thigh, certain positional movements causing a numbness and weakness sensation that radiates down the leg consistent with sciatica, currently he has a normal sensory and motor exam to the lower extremities, he has no bowel or bladder incontinence to suggest a cauda equina or acute cord compression type syndrome, differential diagnosis includes disc herniation, spinal stenosis, neuroforaminal stenosis secondary to degenerative joint disease, nerve inflammation, MSK pain, very low suspicion for acute cord compression or cauda equina, relatively low suspicion for compression fracture to the lumbar spine, plan for CT L-spine in the ER to assess for any bony pathology, initiate supportive measures with pain control, ice, steroids if patient's fingerstick is relatively well-controlled with counseling on the risk of hyperglycemia with steroids, outpatient follow-up with orthopedic spine for MRI and further evaluation with return precautions Lab Data Fingerstick 117 consistent with well-controlled diabetes mellitus Radiology Impressions Lumbar Spine CT 10/28/24 12:17 IMPRESSION: 1. No acute lumbar spine fracture. 2. Remote Schmorl's nodes inferiorly endplates of T12, L1 and L2. 3. Very shallow RIGHT foraminal disc protrusions at L3-4, L4-5 and L5-S1 with a small central disc protrusion also at L5-S1. No high-grade or significant stenosis. 4. No central stenosis. Laboratory Results POC Glucose 117 mg/dL (70-110) H 10/28/24 13:30 All radiology interpretation(s) finalized by discharge ED provider radiology interpretation(s): CT of the lumbar region showing some disc protrusions but no acute spinal fracture or central stenosis Discharge Plan Discharge Patient Disposition: Home Clinical Impression: Acute right-sided low back pain with sciatica Condition: Stable Prescriptions: New oxycodone-acetaminophen [Percocet] 5-325 mg tablet 1 tab PO Q6H PRN (Reason: pain) 3 Days Qty: 12 0RF methocarbamol 750 mg tablet 750 mg PO Q6H PRN (Reason: pain) 7 Days Qty: 28 0RF prednisone 20 mg tablet 40 mg PO DAILY 7 Days Qty: 14 0RF No Action tamsulosin [Flomax] 0.4 mg capsule 0.4 mg PO DAILY Qty: 90 1RF amlodipine 10 mg tablet See Rx Instructions .ROUTE .COMPLEX Qty: 90 1RF Dose Instruction: TAKE 1 TABLET BY MOUTH DAILY Rx Instructions: TAKE 1 TABLET BY MOUTH DAILY atorvastatin 20 mg tablet See Rx Instructions .ROUTE .COMPLEX Qty: 90 1RF Dose Instruction: TAKE 1 TABLET BY MOUTH DAILY Rx Instructions: TAKE 1 TABLET BY MOUTH DAILY omeprazole 20 mg capsule,delayed release(DR/EC) See Rx Instructions .ROUTE .COMPLEX Qty: 90 1RF Dose Instruction: TAKE 1 CAPSULE BY MOUTH DAILY Rx Instructions: TAKE 1 CAPSULE BY MOUTH DAILY tramadol 50 mg tablet 50 mg PO DAILY PRN (Reason: pain) Qty: 30 5RF metformin 500 mg tablet extended release 24 hr See Rx Instructions .ROUTE .COMPLEX Qty: 180 1RF Dose Instruction: TAKE 1 TABLET BY MOUTH TWICE DAILY Rx Instructions: TAKE 1 TABLET BY MOUTH TWICE DAILY lisinopril-hydrochlorothiazide 20-25 mg tablet See Rx Instructions .ROUTE .COMPLEX Qty: 90 1RF Dose Instruction: TAKE 1 TABLET BY MOUTH DAILY Rx Instructions: TAKE 1 TABLET BY MOUTH DAILY furosemide [Lasix] 20 mg tablet 20 mg PO DAILY Qty: 90 1RF cyclobenzaprine 5 mg tablet See Rx Instructions .ROUTE .COMPLEX Qty: 60 2RF Dose Instruction: TAKE 1 TABLET BY MOUTH THREE TIMES DAILY NEEDED FOR muscle spasm Rx Instructions: TAKE 1 TABLET BY MOUTH THREE TIMES DAILY NEEDED FOR muscle spasm celecoxib [Celebrex] 100 mg capsule 100 mg PO BID 90 Days Qty: 180 1RF Rx Instructions: safe to try, stomach irritation with mobic potassium chloride [Klor-Con 10] 10 mEq tablet extended release 10 meq PO DAILY 90 Days Qty: 90 1RF cetirizine [Zyrtec] 10 mg tablet 10 mg PO DAILY PRN (Reason: allergy symptoms) 90 Days Qty: 90 2RF fluticasone propionate 50 mcg/actuation spray,suspension See Rx Instructions .ROUTE .COMPLEX Qty: 48 7RF Dose Instruction: SHAKE LIQUID AND USE 1 SPRAY IN EACH NOSTRIL TWICE DAILY Rx Instructions: SHAKE LIQUID AND USE 1 SPRAY IN EACH NOSTRIL TWICE DAILY aspirin 81 mg 81 mg PO DAILY 30 Days Qty: 30 0RF acetaminophen 500 mg Tablet 1,000 mg PO BID Discharge Orders: Discharge ED (Routine); Ordered 10/28/24 Ordered By: Tito Rice Referrals: Polly Jim FNP [Primary Care Provider, Family Practice] Yashira,Baron H, DO [Physician, Orthopedics] Patient Instructions: Opioid Safety, Pain Management, Patient Portal & Diana Instructions, Sciatica (ED) Print Language: Wolof Coding Level of Care Code ED Hospital Food Service Worker for Rolan Alvarez
[2024-10-28 12:44] VITALS: RESP 20; O2SAT 98
[2024-10-28] MEDS: oxyCODONE-APAP 5-325 mg Tablet 2 TAB PO (12:44)
--- NOTE | 2024-10-28 13:50 | DCPLANNER ---
messaged ortho for er f/u
[2024-10-28 14:08] VITALS: BP 147/80; PULSE 67; O2SAT 98
== END 2024-10-28 14:09 | disposition home or self-care (01) ==
PROVIDERS: Emergency Provider Student in an Organized Health Care Education/Training Program; PCP Registered Nurse
DX: M54.31 Sciatica, right side (principal); M54.50 Low back pain, unspecified; Z79.84 Long term (current) use of oral hypoglycemic drugs; Z79.82 Long term (current) use of aspirin; I10 Essential (primary) hypertension
CPT/HCPCS: 36416; 72131; 82962; 96372; 99284; J1885; J7512; J9999

== ENCOUNTER 2024-11-13 16:01 | Emergency (ER) | payer MEDICARE, SELFPAY ==
[2024-11-13 16:04] VITALS: BP 120/85; PULSE 97; RESP 20; O2SAT 96
--- OUTSIDE RECORDS SUMMARY | 2024-11-13 16:05 | XMS_ITS | Encounter Summary ---
Author Organization [facility] Address [address] [place] [address] Care Team Providers Care Insert Operator Name Role Phone TERESA Nunez Sr., Michael Dave Primary Care Pro vider Encounter Details Date Type Department Care Team (Latest Contact Info) Description 08/24/[address] 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
--- OUTSIDE RECORDS SUMMARY | 2024-11-13 16:05 | XMS_ITS | Encounter Summary ---
Author Organization [facility] Address [address] [place] [address] Care Team Providers Care Biomedical Equipment Tech Name Role Phone TERESA Nunez Sr., Dale Davis Primary Care Pro vider Encounter Details Date Type Department Care Team (Latest Contact Info) Description 12/04/2001 Outpatient Historical [facility] Family Medicine- [employer] [address] [place] [address] Negro Nunez MD [address] [facility] [address] [place] [phone] ESOPHAGEAL REFLUX (Primary Dx); DERMATOPHYTOSIS OF GROIN; HYPERTENSION NOS Social History Tobacco Use Types Packs/Day Years Used Date Smoking Tobacco: Never Assessed Sex and Gender Information Value Date Recorded Sex Assigned at Not on file 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
--- OUTSIDE RECORDS SUMMARY | 2024-11-13 16:05 | XMS_ITS | Encounter Summary ---
Author Organization [facility] Address [address] [place] [address] Care Team Providers Care Injector Assembler Name Role Phone TERESA Nunez Sr., Michael Dave Primary Care Pro vider Encounter Details Date Type Department Care Team (Late st Contact Info) Description 01/31/[address] 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
--- OUTSIDE RECORDS SUMMARY | 2024-11-13 16:05 | XMS_ITS | Encounter Summary ---
Author Organization [facility] Address [address] [place] [address] Care Team Providers Care Cannon Crewmember Name Role Phone TERESA Nunez Sr., Michael Dave Primary Care Pro vider Encounter Details Date Type Department Care Team (Latest Contact Info) Description 12/14/2002 Outpatient Historical [facility] Medicine [address] [place] [phone] Moses Gutierrez DO NO ADDRESS ON FILE NONINFEC GASTROENTERIT NEC (Primary Dx); ACUTE SINUSITIS NOS; HYPERTENSION NOS; FLUID OVERLOAD Social History Tobacco Use Types Packs/Day Years Used Date Smoking Tobacco: Never Assessed Sex and Gender Information Value Date Recorded Sex Assigned at Not on file 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 Gender Identity Not on file Sexual Orientation Not on file documented as of this encounter Plan of Treatment Not on file documented as of this encounter Visit Diagnoses Diagnosis Other and unspecified noninfectious gastroenteritis and colitis(558.9)- Primary Other and unspecified noninfectious gastroenteritis and colitis Acute sinusitis, unspecified Unspecified essential hypertension Fluid overload documented in this encounter Care Teams Cannon Crewmember Relationship Specialty Start Date End Date Dale Nunez Sr., FNP [address] [place] [address] PCP - General NURSE PRACTITIONER 05/29/15 documented as of this encounter
--- OUTSIDE RECORDS SUMMARY | 2024-11-13 16:05 | XMS_ITS | Clinical Summary ---
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
--- OUTSIDE RECORDS SUMMARY | 2024-11-13 16:05 | XMS_ITS | Encounter Summary ---
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
--- OUTSIDE RECORDS SUMMARY | 2024-11-13 16:05 | XMS_ITS | Encounter Summary ---
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
--- OUTSIDE RECORDS SUMMARY | 2024-11-13 16:05 | XMS_ITS | Encounter Summary ---
Author Organization [facility] Address [address] [place] [address] Care Team Providers Care Gin Pole Operator Name Role Phone TERESA Nunez Sr., Michael Dave Primary Care Pro vider Encounter Details Date Type Department Care Team (Latest Contact Info) Description 05/14/2001 Outpatient Historical [facility] Medicine [address] [place] [phone] Rowena Blas MD NO ADDRESS ON FILE ISSUE MEDICAL CERTIFICAT (Primary Dx); DERMATOPHYTOSIS OF BODY Social History Tobacco Use Types Packs/Day Years Used Date Smoking Tobacco: Never Assessed Sex and Gender Information Value Date Recorded Sex Assigned at Not on file 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
--- OUTSIDE RECORDS SUMMARY | 2024-11-13 16:05 | XMS_ITS | Encounter Summary ---
Author Organization [facility] Address [address] [place] [address] Care Team Providers Care Casino Operations Supervisor Name Role Phone TERESA Nunez Sr., Michael Dave Primary Care Pro vider Encounter Details Date Type Department Care Team (Latest Contact Info) Description 04/12/2003 Outpatient Historical [facility] Medicine [address] [place] [phone] Moses Gutierrez DO NO ADDRESS ON FILE ABNORMAL WEIGHT GAIN (Primary Dx); HYPERTENSION NOS; OTHER MALAISE AND FATIGUE; JOINT PAIN-UNSPEC Social History Tobacco Use Types Packs/Day Years Used Date Smoking Tobacco: Never Assessed Sex and Gender Information Value Date Recorded Sex Assigned at Not on file 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
--- OUTSIDE RECORDS SUMMARY | 2024-11-13 16:05 | XMS_ITS | Encounter Summary ---
Author Organization [facility] Address [address] [place] [address] Care Team Providers Care Lean Six Sigma Senior Specialist Name Role Phone TERESA Nunez Sr., Michael Dave Primary Care Pro vider Encounter Details Date Type Department Care Team (Latest Contact Info) Description 06/04/2002 Outpatient Historical [facility] [address] [place] [address] AM[address], 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
--- OUTSIDE RECORDS SUMMARY | 2024-11-13 16:05 | XMS_ITS | Encounter Summary ---
Author Organization [facility] Address [address] [place] [address] Care Team Providers Care Engineering Operations Leader Name Role Phone TERESA Nunez Sr., Michael Dave Primary Care Pro vider Encounter Details Date Type Department Care Team (Latest Contact Info) Description 11/04/2003 Outpatient Historical [facility] Medicine [place] [address] [facility] [address] [place] [phone] Negro Nunez MD [address] [phone] HYPERTENSION NOS (Primary Dx); CARPAL TUNNEL SYNDROME; EDEMA Social History Tobacco Use Types Packs/Day Years Used Date Smoking Tobacco: Never Assessed Sex and Gender Information Value Date Recorded Sex Assigned at Not on file 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
--- OUTSIDE RECORDS SUMMARY | 2024-11-13 16:05 | XMS_ITS | Encounter Summary ---
Author Organization [facility] Address [address] [place] [address] Care Team Providers Care Ell Teacher Name Role Phone TERESA Nunez Sr., Michael Dave Primary Care Pro vider Encounter Details Date Type Department Care Team (Latest Contact Info) Description 01/30/2006 Outpatient Historical [facility] Medicine [address] [place] [phone] Rowena Blas MD NO ADDRESS ON FILE Pneumonia, Organism Unspecified (Primary Dx) Social History Tobacco Use Types Packs/Day Years Used Date Smoking Tobacco: Never Assessed Sex and Gender Information Value Date Recorded Sex Assigned at Not on file 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
--- OUTSIDE RECORDS SUMMARY | 2024-11-13 16:05 | XMS_ITS | Clinical Summary ---
Author Organization [facility] Address [address] 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
--- OUTSIDE RECORDS SUMMARY | 2024-11-13 16:05 | XMS_ITS | Encounter Summary ---
Author Organization [facility] Address [address] [place] [address] Care Team Providers Care Construction Worker Name Role Phone TERESA Nunez Sr., Michael Dave Primary Care Pro vider Encounter Details Date Type Department Care Team (Latest Contact Info) Description 07/13/2002 Outpatient Historical [facility] Family Medicine- [employer] [address] [place] [address] Moses Gutierrez, NO ADDRESS ON FILE DIZZINESS AND GIDDINESS (Primary Dx); POSTSURGICAL STATES NEC; HYPERTENSION NOS Social History Tobacco Use Types Packs/Day Years Used Date Smoking Tobacco: Never Assessed Sex and Gender Information Value Date Recorded Sex Assigned at Not on file 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
--- OUTSIDE RECORDS SUMMARY | 2024-11-13 16:05 | XMS_ITS | Encounter Summary ---
Author Organization [facility] Address [address] [place] [address] Care Team Providers Care Soft Hat Binder Name Role Phone TERESA Nunez Sr., Michael Dave Primary Care Pro vider Encounter Details Date Type Department Care Team (Latest Contact Info) Description 08/14/2001 Outpatient Historical [facility] Medicine [place] [address] [facility] [address] [place] [phone] Negro Nunez MD [address] [phone] SHORTNESS OF BREATH (Primary Dx); OTHER MALAISE AND FATIGUE Social History Tobacco Use Types Packs/Day Years Used Date Smoking Tobacco: Never Assessed Sex and Gender Information Value Date Recorded Sex Assigned at Not on file 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
--- OUTSIDE RECORDS SUMMARY | 2024-11-13 16:06 | XMS_ITS | Encounter Summary ---
Author Organization [facility] Address [address] [place] [address] Care Team Providers Care Rag Cutting Machine Operator Name Role Phone TERESA Nunez Sr., Michael Dave Primary Care Pro vider Encounter Details Date Type Department Care Team (Latest Contact Info) Description 05/10/2003 Outpatient Historical [facility] Medicine [address] [place] [phone] Moses Gutierrez DO NO ADDRESS ON FILE ISSUE MEDICAL CERTIFICAT (Primary Dx) Social History Tobacco Use Types Packs/Day Years Used Date Smoking Tobacco: Never Assessed Sex and Gender Information Value Date Recorded Sex Assigned at Not on file Legal Sex Male 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
--- NOTE | 2024-11-13 16:50 | XRR_ITS ---
PROCEDURE INFORMATION: Exam: XR Right Knee Exam date and time: 11/13/2024 5:00 PM Age: 63 years old Clinical indication: Pain; Knee; Right; Additional info: RT knee pain/swelling; Warm to touch TECHNIQUE: Imaging protocol: Radiologic exam of the right knee. Views: 1 or 2 views. COMPARISON: No relevant prior studies available. FINDINGS: Bones/joints: Moderate to severe joint space narrowing medial femoral compartment. Mild hypertrophic degenerative bony change, particularly medially and about the posterior patella at the patellofemoral compartment. No fracture or acute osseous abnormality. No significant suprapatellar fullness to suggest significant effusion. Soft tissues: Mild soft tissue swelling. XR/XR knee RT 1-2V [id number] IMPRESSION: Degenerative change right knee with moderate to severe joint space narrowing medial femoral compartment and mild hypertrophic degenerative bony changes. No fracture or malalignment.
--- NOTE | 2024-11-13 16:57 | ED_ITS ---
HPI - Extremity Problem 2 General: Chief complaint: Extremity Injury, Lower Stated complaint: R Knee swelling painful Time Seen by Provider: 11/13/24 16:40 History of Present Illness: Patient is a 63-year-old gentleman that presents today with right knee pain and warmth, swelling. Patient initially had sciatica 2 weeks ago, and was treated here, and states he has complete resolution. On , 2 days ago, he started having pain in his right knee. He noted that his knee was warm, swollen, however there was any redness. He did not injure his knee. He does have a history of arthritis Associated symptoms: Deny fever(s) Related Data Home Medications ?Medication ?Instructions ?Recorded ?Confirmed acetaminophen 500 mg tablet 1,000 mg PO BID 01/19/21 0 10/28/24 aspirin 81 mg tablet,delayed 81 mg PO DAILY 10/28/24 0 10/28/24 release (Winsome Low Dose Aspirin) Previous Rx's ?Medication ?Instructions ?Recorded cetirizine 10 mg tablet (Zyrtec) 10 mg PO DAILY PRN al lergy 05/01/24 symptoms 90 days #90 tabs fluticasone propionate 50 See Rx Instructions .Route 0 05/01/24 mcg/actuation nasal .COMPLEX #48 grams spray,suspension amlodipine 10 mg tablet See Rx Instructions .Route 0 08/20/24 .COMPLEX #90 tabs atorvastatin 20 mg tablet See Rx Instructions .Route 0 08/20/24 .COMPLEX #90 tabs celecoxib 100 mg capsule (Celebrex) 100 mg PO BID 90 d ays #180 caps 08/20/24 cyclobenzaprine 5 mg tablet See Rx Instructions .Route 08/20/24 .COMPLEX #60 tabs furosemide 20 mg tablet (Lasix) 20 mg PO DAILY #90 tab s 08/20/24 lisinopril 20 See Rx Instructions .Route 0 08/20/24 mg-hydrochlorothiazide 25 mg tablet .COMPLEX #90 tabs metformin 500 mg tablet,extended See Rx Instructions . Route 08/20/24 release 24 hr .COMPLEX #180 tabs omeprazole 20 mg capsule,delayed See Rx Instructions . Route 08/20/24 release .COMPLEX #90 caps potassium chloride 10 mEq 10 meq PO DAILY 90 days #90 tabs 08/20/24 tablet,extended release (Klor-Con) tamsulosin 0.4 mg capsule (Flomax) 0.4 mg PO DAILY #90 caps 08/20/24 tramadol 50 mg tablet 50 mg PO DAILY PRN pain #30 tabs 08/20/24 Allergies Allergy/AdvReac Type Severity Reaction Status Date / Time meloxicam (From MobAnomo) Allergy Mild ulcers Verified 10/28/24 11:42 Review of Systems 2 General: Reports: 10 or more systems reviewed and unremarkable except in HPI and below and Other (no acute or recent problems) Const: Denies: fever(s) or chills Eyes: Denies: change in vision or blurry vision Resp: Denies: dyspnea or non-productive cough Musc: Reports: extremity pain, extremity swelling, joint pain, joint warmth, joint stiffness and limited range of motion; Denies: neck pain, back pain, joint swelling or joint redness Neuro: Denies: headache(s) or sensory changes PFSH ED 2 PFSH: Medical History (Updated 11/13/24 @ 18:40 by ALEXIS Gutierrez) Cellulitis of left thigh Chronic anticoagulation on eliquis, unclear reason, patient not certain BMI 40.0-44.9, adult Cellulitis and abscess of left leg Right distal ureteral calculus Chronic low back pain Arthritis Insomnia Diverticulosis Obesity COVID-19 (~09/2019) GERD (gastroesophageal reflux disease) Hypertension Surgical History History of lithotripsy (~10/2019) with ureteral stent History of colonoscopy Hx of tonsillectomy History of esophagogastroduodenoscopy (EGD) 02/14/2019 esophagogastroduodenoscopy with biopsy Postop findings: Multiple gastric erosions S/P tonsillectomy H/O colectomy History of colon surgery Family History Mother Fibromyalgia Anesthesia complication Bleeding disorder Other CAD (coronary artery disease) Crohn's disease Diabetes Hypertension Social History Smoking and tobacco/nicotine status: never used tobacco/nicotine Alcohol intake: never Substance/Drug Use: never Lives independently: Yes Household members: spouse Marital status: Current occupational status: employed 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 Physical Exam 2 Const: COMMON NORMALS: no acute distress, average body habitus, patient oriented x3, no limitations, healthy appearing, alert and well nourished HENMT: COMMON NORMALS: normocephalic and atraumatic HEAD & SCALP: n ormocephalic and atraumatic Neck/C-Spine: COMMON NORMALS: full ROM, no lymphadenopathy, supple and no meningeal signs Lymph: LYMPHATIC: no lymphadenopathy noted Chest: COMMONS NORMALS: normal inspection of the chest and normal palpation of entire chest wall Resp: COMMON NORMALS: normal respiratory effort, No retractions and clear to auscultation bilaterally AUSCULTATION: clear to auscultation bilaterally Cardio: COMMON NORMALS: regular rate and regular rhythm RATE: regular rate RHYTHM: regular rhythm GI: COMMON NORMALS: Normal to inspection, nondistended, normoactive bowel sounds present, Soft to palpation and non-tender PALPATION: Yes Soft to palpation Extremity: NARRATIVE EXTREMITY EXAM: Redness to his right knee, however warmth is appreciated, decreased range of motion, and tenderness. No edema. Neuro: COMMON NORMALS: patient oriented x3 SENSORIUM/ORIENTATION: Yes alert MENINGEAL SIGNS: Yes no meningeal signs Skin: COMMON NORMALS: no rashes or lesions noted GENERAL SKIN EXAM: no rashes or lesions noted Procedures Bursa Procedures Time Out Performed: Yes Side of body: right Site of Procedure: prepatellar bursa XRAY Obtained: normal (arthritis, joint space narrowing) Antisepsis Used: Povidone-Iodine1% and Chlorhexidine Local Anesthetic: lidocaine 1% and with epi Amount of anesthesia used (mL): 2 Fluid obtained (mL): 0 Fluid Type: other (n/a) Medication Injected: Triamcinolone (80 mg) Amount of medication used (mg): 80 Lidocaine Added to Medication: Yes Patient Tolerated Procedure: well and no complications Complications: none and pain requiring rescue medication Additional Comments: Attempted x 2 and prepatellar bursa, however no fluid was obtained. Lateral spacing appeared easier to advance, however as noted no fluid was obtained. Triamcinolone with lidocaine placed in the space. Joint Aspiration/Injection Joint Asp./Inject. 1: Time Out Performed: Yes Side of body: right Joint Aspirated: knee Ultrasound Guidance: No Skin Prep: sterile prep and drape Local Anesthetic: lidocaine 1% and with epi Amount of anesthesia used (mL): 2 Needle Size Used: 22G Fluid Obtained: clear (none) Total fluid obtained (mL): 0 Medication Injected, if any: Triamcinolone Acetate Amount of medication injected (mL): 2 Patient Tolerated Procedure: well and no complications Complications: none Course 2 Vital Signs: Vital signs: Vital Signs Pulse Rate 97 11/13/24 16:04 Respiratory Rate 20 H 11/13/24 16:04 Blood Pressure 120/85 11/13/24 16:04 Pulse Oximetry 96 11/13/24 16:04 Oxygen Delivery Me thod Room Air 11/13/24 16:04 MDM - Extremity (Nontraumatic) Medical Decision Making Less likely septic arthritis given that there is no fluid to be obtained in the joint space. Triamcinolone was placed in the joint space with lidocaine. Patient has follow-up with orthopedist on . Medical Records I reviewed the patient's medical records. Lab Data 11/13/24 17:08 11/13/24 17:08 Radiology Impressions Knee X-Ray 11/13/24 16:50 IMPRESSION: Degenerative change right knee with moderate to severe joint space narrowing medial femoral compartment and mild hypertrophic degenerative bony changes. No fracture or malalignment. Laboratory Results WBC 10.43 10^3/uL (3.29-11.43) 11/13/24 17:08 RBC 4.15 10^6/uL (3.85-5.65) 11/13/24 17:08 Hgb 12.90 g/dL (11.27-16.99) 11/13/24 17:08 Hct 39.1 % (37-53) 11/13/24 17:08 MCV 94.2 fl (82-101) 11/13/24 17:08 MCH 31.1 pg (27-33) 11/13/24 17:08 MCHC 33.0 g/dL (30-55) 11/13/24 17:08 RDW 13.0 % (12.1-15.1) 11/13/24 17:08 Plt Count 176 10^3/cmm (157-399) 11/13/24 17:08 MPV 9.9 fL (7.4-10.4) 11/13/24 17:08 Neut % (Auto) 72.8 % 11/13/24 17:08 Lymph % (Auto) 17.6 % 11/13/24 17:08 Gladwin % (Auto) 6.4 % 11/13/24 17:08 Eos % (Auto) 2.2 % 11/13/24 17:08 Baso % (Auto) 0.5 % 11/13/24 17:08 Neut # (Auto) 7.59 10^3/uL (1.8-7.7) 11/13/24 17:08 Lymph # (Auto) 1.8 10^3/uL (0.8-4.8) 11/13/24 17:08 Gladwin # (Auto) 0.7 10^3/uL (0.2-0.9) 11/13/24 17:08 Eos # (Auto) 0.2 10^3/uL (0.0-0.8) 11/13/24 17:08 Baso # (Auto) 0.1 10^3/uL (0.0-0.1) 11/13/24 17:08 Nucleated RBC % (auto) 0 % 11/13/24 17:08 Nucleated RBCs # 0.0 /100WBC 11/13/24 17:08 ESR 5 mm/hr (0-10) 11/13/24 17:08 Sodium 142 mmol/L (136-145) 11/13/24 17:08 Potassium 4.8 mmol/L (3.5-5.1) 11/13/24 17:08 Chloride 104 mmol/L (98-107) 11/13/24 17:08 Carbon Dioxide 23 mmol/L (22-29) 11/13/24 17:08 Anion Gap 19.8 (5-19) H 11/13/24 17:08 BUN 38 mg/dL (8-23) H 11/13/24 17:08 Creatinine 1.8 mg/dL (0.7-1.2) H 11/13/24 17:08 GFR Calculation 38.2 mL/min (90-130) L 11/13/24 17:08 Glucose 165 mg/dL (65-115) H 11/13/24 17:08 Calculated Osmolality 307 mOsm/kg (285-295) H 11/13/24 17:08 Calcium 9.8 mg/dL (8.5-10.5) 11/13/24 17:08 Total Bilirubin 0.6 mg/dL (0.15-1.2) 11/13/24 17:08 AST 13 U/L (0-40) 11/13/24 17:08 ALT 22 U/L (0-41) 11/13/24 17:08 Alkaline Phosphatase 85 U/L (40-130) 11/13/24 17:08 C-Reactive Protein 3.7 mg/L (0.0-4.9) 11/13/24 17:08 Total Protein 7.7 g/dL (6.6-8.7) 11/13/24 17:08 Albumin 4.6 g/dL (3.5-5.2) 11/13/24 17:08 Globulin 3.1 g/dL (1.3-4.6) 11/13/24 17:08 All radiology interpretation(s) finalized by discharge Discharge Plan Discharge Patient Disposition: Home Clinical Impression: Acute pain of right knee, AWILDA (acute kidney injury) Condition: Stable Prescriptions: No Action tamsulosin [Flomax] 0.4 mg capsule 0.4 mg PO DAILY Qty: 90 1RF amlodipine 10 mg tablet See Rx Instructions .ROUTE .COMPLEX Qty: 90 1RF Dose Instruction: TAKE 1 TABLET BY MOUTH DAILY Rx Instructions: TAKE 1 TABLET BY MOUTH DAILY atorvastatin 20 mg tablet See Rx Instructions .ROUTE .COMPLEX Qty: 90 1RF Dose Instruction: TAKE 1 TABLET BY MOUTH DAILY Rx Instructions: TAKE 1 TABLET BY MOUTH DAILY omeprazole 20 mg capsule,delayed release(DR/EC) See Rx Instructions .ROUTE .COMPLEX Qty: 90 1RF Dose Instruction: TAKE 1 CAPSULE BY MOUTH DAILY Rx Instructions: TAKE 1 CAPSULE BY MOUTH DAILY tramadol 50 mg tablet 50 mg PO DAILY PRN (Reason: pain) Qty: 30 5RF metformin 500 mg tablet extended release 24 hr See Rx Instructions .ROUTE .COMPLEX Qty: 180 1RF Dose Instruction: TAKE 1 TABLET BY MOUTH TWICE DAILY Rx Instructions: TAKE 1 TABLET BY MOUTH TWICE DAILY lisinopril-hydrochlorothiazide 20-25 mg tablet See Rx Instructions .ROUTE .COMPLEX Qty: 90 1RF Dose Instruction: TAKE 1 TABLET BY MOUTH DAILY Rx Instructions: TAKE 1 TABLET BY MOUTH DAILY furosemide [Lasix] 20 mg tablet 20 mg PO DAILY Qty: 90 1RF cyclobenzaprine 5 mg tablet See Rx Instructions .ROUTE .COMPLEX Qty: 60 2RF Dose Instruction: TAKE 1 TABLET BY MOUTH THREE TIMES DAILY NEEDED FOR muscle spasm Rx Instructions: TAKE 1 TABLET BY MOUTH THREE TIMES DAILY NEEDED FOR muscle spasm celecoxib [Celebrex] 100 mg capsule 100 mg PO BID 90 Days Qty: 180 1RF Rx Instructions: safe to try, stomach irritation with mobic potassium chloride [Klor-Con 10] 10 mEq tablet extended release 10 meq PO DAILY 90 Days Qty: 90 1RF cetirizine [Zyrtec] 10 mg tablet 10 mg PO DAILY PRN (Reason: allergy symptoms) 90 Days Qty: 90 2RF fluticasone propionate 50 mcg/actuation spray,suspension See Rx Instructions .ROUTE .COMPLEX Qty: 48 7RF Dose Instruction: SHAKE LIQUID AND USE 1 SPRAY IN EACH NOSTRIL TWICE DAILY Rx Instructions: SHAKE LIQUID AND USE 1 SPRAY IN EACH NOSTRIL TWICE DAILY acetaminophen 500 mg Tablet 1,000 mg PO BID aspirin [Winsome Low Dose Aspirin] 81 mg Tablet,Delayed Release (Dr/Ec) 81 mg PO DAILY Discharge Orders: Discharge ED (Routine); Ordered 11/13/24 Ordered By: Juana Reyes Referrals: Polly Jim FNP [Primary Care Provider, Family Practice] Bobby Saba DO [Physician, Orthopedics] Discharge Diet: Diabetic Discharge Activity: Resume usual activity Patient Instructions: Swollen Knee Joint (ED), P.R.I.C.E. Treatment (ED), Patient Portal & Diana Instructions Activity Restrictions/Additional Instructions: - Drink 72 ounces a day of noncaffeinated beverage. Your kidneys are not working with your medication below. - Ice, compress, and elevate your right knee - Hold your metformin, lisinopril/HCTZ until you follow-up labs. Obtain a primary care physician appointment at the first the week to follow-up your labs. - Do not take any ibuprofen - no Aleve/naproxen - Decrease Celebrex dose to 100 mg daily until follow-up on your labs - Your laboratory data does not appear to be consistent with septic arthritis, no fluid was obtained, however you will need to follow-up with your orthopedist for further evaluation Stand Alone Forms: Work/School Release Print Language: Estonian Coding Level of Care Code ED Spareribs Trimmer for Rolan Alvarez
[2024-11-13] MEDS: lidocaine-epi 1% 20 mL INJ INJECTION (17:01)
[2024-11-13 17:18] LABS: Hematocrit 39.1 % (37-53); Hemoglobin 12.90 g/dL (11.27-16.99); Mean Corpuscular HGB Conc 33.0 g/dL (30-55); Mean Corpuscular Hemoglobin 31.1 pg (27-33); Mean Corpuscular Volume 94.2 fl (82-101); Nucleated Red Blood Cells % 0 %; Platelet Count 176 10^3/cmm (157-399); Red Blood Count 4.15 10^6/uL (3.85-5.65); White Blood Count 10.43 10^3/uL (3.29-11.43)
[2024-11-13 17:36] LABS: Alanine Aminotransferase 22 U/L (0-41); Albumin Level 4.6 g/dL (3.5-5.2); Alkaline Phosphatase 85 U/L (40-130); Anion Gap 19.8 (5-19); Aspartate Amino Transferase 13 U/L (0-40); Blood Urea Nitrogen 38 mg/dL (8-23); Calcium 9.8 mg/dL (8.5-10.5); Carbon Dioxide 23 mmol/L (22-29); Chloride 104 mmol/L (98-107); Globulin 3.1 g/dL (1.3-4.6); Glucose 165 mg/dL (65-115); Osmolality Calculated 307 mOsm/kg (285-295); Potassium 4.8 mmol/L (3.5-5.1); Sodium 142 mmol/L (136-145); Total Protein 7.7 g/dL (6.6-8.7)
[2024-11-13] MEDS: triamcinolone 40 mg/mL SDV 80 MG IM (18:25)
[2024-11-13] MEDS: HYDROcodone-acetaminophen 10-325 mg Tablet 1 TAB PO (18:46)
[2024-11-13] MEDS: orphenadrine 30 mg/mL Inj 2 mL 60 MG IM (18:48)
== END 2024-11-13 19:08 | disposition home or self-care (01) ==
PROVIDERS: Emergency Provider Physician Assistant; PCP Registered Nurse
DX: M25.561 Pain in right knee (principal); N17.9 Acute kidney failure, unspecified; Z79.84 Long term (current) use of oral hypoglycemic drugs; Z79.82 Long term (current) use of aspirin; I10 Essential (primary) hypertension
CPT/HCPCS: 20610; 36415; 73560; 80053; 85025; 85651; 86140; 87040; 96372; 99284; J1100; J1885; J2360; J3301; J9999

== ENCOUNTER → 2024-11-18 15:47 | Outpatient (BNVA) | payer MEDICARE, SELFPAY | PROVIDERS: PCP Registered Nurse; Visit Provider Orthopaedic Surgery | DX: M47.896 Other spondylosis, lumbar region (principal); M54.18 Radiculopathy, sacral and sacrococcygeal region; G89.29 Other chronic pain | CPT/HCPCS: 72110; 99203 ==

== ENCOUNTER → 2024-11-29 15:10 | Outpatient (BNVA) | payer MEDICARE, SELFPAY | PROVIDERS: PCP Registered Nurse; Visit Provider Nurse Practitioner Family | DX: E11.9 Type 2 diabetes mellitus without complications (principal) | CPT/HCPCS: 80053; 83036 ==

== ENCOUNTER → 2024-12-10 07:59 | Outpatient (BNVA) | payer MEDICARE, SELFPAY | PROVIDERS: PCP Registered Nurse; Visit Provider Orthopaedic Surgery | DX: M17.11 Unilateral primary osteoarthritis, right knee (principal); G89.29 Other chronic pain | CPT/HCPCS: 20610; 99204; 99214; J3301; J3490; J9999 ==

== ENCOUNTER → 2024-12-24 10:00 | Outpatient (BNVA) | payer MEDICARE, SELFPAY | PROVIDERS: PCP Registered Nurse; Visit Provider Orthopaedic Surgery | DX: M25.561 Pain in right knee (principal); G89.29 Other chronic pain | CPT/HCPCS: 99213 ==